=== PATIENT | female | born 1945 | race Caucasian/White ===

== ENCOUNTER → 2023-08-11 | Emergency (ER) | payer OTHER ==
[2023-08-11 11:53] LABS: Absolute Eosinophils 0.3 K/uL (0-0.5); Absolute Lymphocytes (CBC) 1.3 K/uL (0.7-4.9); Basophils % 0.2 % (0-1.3); Eosinophils % 5.6 % (0-4.4); Hematocrit 43.5 % (36.0-45.0); Hemoglobin 14.8 g/dL (12.0-15.0); Lymphocytes % 23.7 % (15.3-44.8); MCV 88.1 fL (80-100); Platelets 349 thou/uL (152-406); RBC Red Blood Cell Count 4.93 M/uL (3.86-4.86)
[2023-08-11 12:14] LABS: Albumin 3.8 g/dL (3.4-5.0); Albumin/Globulin Ratio 0.9 (1.1-1.8); Bilirubin Direct 0.1 mg/dL (0-0.2); Bilirubin Indirect, Calculated 0.3 mg/dL (0.2-0.8); Bilirubin Total 0.4 mg/dL (0.2-1.0); Globulin 4.2 g/dL (2.3-3.5); Magnesium 2.1 mg/dL (1.6-2.4); Thyroid Stimulating Hormone 2.18 uIU/mL (0.358-3.740); Troponin High Sensitivity 8.4 pg/mL (<58.9)
--- NOTE | 2023-08-11 12:24 | RAD REPORT ---
EXAM DESCRIPTION: Rafat Single View08/11/2023 12:11 pm CLINICAL HISTORY: Bradycardia COMPARISON: 2012 FINDINGS: Mild interstitial opacities within the upper lobes. Lateral left lung base is hazy Heart mildly enlarged IMPRESSION: Mild bilateral pulmonary opacities may represent pneumonia or be chronic. A CT chest may helpful for further evaluation
--- NOTE | 2023-08-11 13:00 | ER ---
Nurse's Notes [facility] Name: Gabby López Age: 78 yrs Sex: Female : 1945 Arrival Date: 08/11/2023 Time: 10:42 Bed 5 Private MD: Zaria Kate Diagnosis: Sinus bradycardia Presentation: 08/10 10:55 Chief complaint: Patient states: was seen at Dr. Kate office and her HR was 42 , she iw had a hard time getting in the car but denies feeling dizzy or light headed. Coronavirus screen: At this time, the client does not indicate any symptoms associated with coronavirus-19. Ebola Screen: Patient negative for fever greater than or equal to 101.5 degrees Fahrenheit, and additional compatible Ebola Virus Disease symptoms Patient denies exposure to infectious person. Patient denies travel to an Ebola-affected area in the 21 days before illness onset. No symptoms or risks identified at this time. Initial Sepsis Screen: Does the patient meet any 2 criteria? No. Patient's initial sepsis screen is negative. Does the patient have a suspected source of infection? No. Patient's initial sepsis screen is negative. Risk Assessment: Do you want to hurt yourself or someone else? Patient reports no desire to harm self or others. Onset of symptoms was August 11, 2023. 10:55 Method Of Arrival: Wheelchair iw 10:55 Acuity: BHAVIN 3 iw Historical: - Allergies: 10:58 No Known Allergies; iw - PMHx: 10:58 Diabetes mellitus; Hypercholesterolemia; COPD; Myocardial infarction; Hypertensive iw disorder; scoliosis; Anxiety; - PSHx: 10:58 hysterectomy; Tonsillectomy; neck; iw - Immunization history:: Adult Immunizations Pneumococcal vaccine is up to date, Flu vaccine is not up to date. - Social history:: Smoking status: Patient/guardian denies using tobacco, Stopped _ months ago 3. - Family history:: not pertinent. Screenin:55 [facility] ED Fall Risk Assessment (Adult) Score/Fall Risk Level 0 - 2 = Low Risk nj1 Oriented to surroundings, Maintained a safe environment, Hourly rounding (assess needs \T\ fall precautionary measures) done. Abuse screen: Denies threats or abuse. Denies injuries from another. Nutritional screening: No deficits noted. Tuberculosis screening: No symptoms or risk factors identified. Assessment: 11:30 General: Appears in no apparent distress. comfortable, Behavior is calm, cooperative, nj1 appropriate for age. 11:30 Pain: Denies pain. Neuro: Level of Consciousness is awake, alert, obeys commands, nj1 Oriented to person, place, time, situation. Cardiovascular: Patient's skin is warm and dry. Rhythm is sinus bradycardia. Respiratory: Airway is patent Respiratory effort is even, unlabored. 12:20 Reassessment: Patient appears in no apparent distress at this time. Patient and/or db family updated on plan of care and expected duration. Pain level reassessed. Patient is alert, oriented x 3, equal unlabored respirations, skin warm/dry/pink. PT ASSISTED TO RESTROOM VIA WHEELCHAIR. PT ATTEMPTED TO AMBULATE TO RESTROOM AND STOOD UP QUICKLY AND STATED FELT DIZZY. NOTIFIED DR. SALINAS. 12:58 Reassessment: Patient appears in no apparent distress at this time. Patient is alert, nj1 oriented x 3, equal unlabored respirations, skin warm/dry/pink. Pt walking on hallway with Dr Salinas. No s/s of distress noted. Vital Signs: 10:55 BP 175 / 44; Pulse 43; Resp 16; Temp 97.9; Pulse Ox 98% on R/A; Weight 58.97 kg; Height iw 5 ft. 0 in. ; 11:54 BP 174 / 61; Pulse 48; Resp 18; Pulse Ox 98% on R/A; nj1 12:50 BP 168 / 50; Pulse 49; Resp 12; Pulse Ox 96% on R/A; nj1 10:55 Body Mass Index 25.39 (58.97 kg, 152.4 cm) iw ED Course: 10:46 Patient arrived in ED. mr 10:47 Zaria Kate DO is Private Physician. mr 10:49 Noman Salinas MD is Attending Physician. rt 10:56 Triage completed. iw 11:00 Arm band placed on. iw 11:27 Chandrika Santo, RONEY is Primary Nurse. nj1 11:35 Inserted saline lock: 22 gauge in right antecubital area, using aseptic technique. nj1 Blood collected. 11:55 Patient has correct armband on for positive identification. Placed in gown. Bed in low nj1 position. Call light in reach. Side rails up X 1. Adult w/ patient. Provided Education on: call light, fall precautions. 13:05 No provider procedures requiring assistance completed. nj1 13:05 IV discontinued, intact, bleeding controlled. nj1 Administered Medications: No medications were administered Medication: 13:05 VIS not applicable for this client. nj1 Outcome: 12:59 Discharge ordered by MD. rt 13:05 Discharged to home ambulatory, with family, nj1 13:05 Condition: stable 13:05 Discharge instructions given to patient, Instructed on discharge instructions, follow up and referral plans. safety practices, Demonstrated understanding of instructions, follow-up care, 13:08 Patient left the ED. nj1 Signatures: Damari Marte, Reg Reg mr Annabelle Rg, RN RN iw Azeb Grant RN RN db Noman Salinas MD MD rt Chandrika Santo RN RN nj1 Corrections: (The following items were deleted from the chart) 12:47 12:20 Reassessment: Patient appears in no apparent distress at this time. Patient db and/or family updated on plan of care and expected duration. Pain level reassessed. Patient is alert, oriented x 3, equal unlabored respirations, skin warm/dry/pink. PT ASSISTED TO RESTROOM VIA WHEELCHAIR. db 13:16 13:15 Patient left the ED. nj1 nj1
--- NOTE | 2023-08-11 13:00 | EDPHYS ---
Physician Documentation [facility] Name: Gabby López Age: 78 yrs Sex: Female : 1945 Arrival Date: 08/11/2023 Time: 10:42 Bed 5 Private MD: Zaria Kate ED Physician Noman Valiente HPI: 08/10 13:21 This 78 yrs old Female presents to ER via Wheelchair with complaints of Low Heart rate. rt 13:21 Patient presents to the ED with bradycardia. Patient went to her primary care's office rt today for a checkup, heart rate was noted to be about 40 to. Patient denies any symptoms at this time, denies chest pain, shortness of breath, dizziness. Denies other acute complaints, symptoms are moderate severity, no other aggravating or elevating factors.. Historical: - Allergies: 10:58 No Known Allergies; iw - PMHx: 10:58 Diabetes mellitus; Hypercholesterolemia; COPD; Myocardial infarction; Hypertensive iw disorder; scoliosis; Anxiety; - PSHx: 10:58 hysterectomy; Tonsillectomy; neck; iw - Immunization history:: Adult Immunizations Pneumococcal vaccine is up to date, Flu vaccine is not up to date. - Social history:: Smoking status: Patient/guardian denies using tobacco, Stopped _ months ago 3. - Family history:: not pertinent. ROS: 13:21 Constitutional: Negative for fever, chills, and weight loss, Cardiovascular: Negative rt for chest pain, palpitations, and edema, Respiratory: Negative for shortness of breath, cough, wheezing, and pleuritic chest pain, Abdomen/GI: Negative for abdominal pain, nausea, vomiting, diarrhea, and constipation, MS/Extremity: Negative for injury and deformity, Skin: Negative for injury, rash, and discoloration, Neuro: Negative for headache, weakness, numbness, tingling, and seizure, Psych: Negative for depression, anxiety, suicide ideation, homicidal ideation, and hallucinations, Exam: 13:16 ECG was reviewed by the Attending Physician. rt 13:21 Constitutional: This is a well developed, well nourished patient who is awake, alert, rt and in no acute distress. Head/Face: Normocephalic, atraumatic. Chest/axilla: Normal chest wall appearance and motion. Nontender with no deformity. No lesions are appreciated. Cardiovascular: Regular rate and rhythm with a normal S1 and S2. No gallops, murmurs, or rubs. Normal PMI, no JVD. No pulse deficits. Respiratory: Lungs have equal breath sounds bilaterally, clear to auscultation and percussion. No rales, rhonchi or wheezes noted. No increased work of breathing, no retractions or nasal flaring. Abdomen/GI: Soft, non-tender, with normal bowel sounds. No distension or tympany. No guarding or rebound. No evidence of tenderness throughout. Skin: Warm, dry with normal turgor. Normal color with no rashes, no lesions, and no evidence of cellulitis. MS/ Extremity: Pulses equal, no cyanosis. Neurovascular intact. Full, normal range of motion. Neuro: Awake and alert, GCS 15, oriented to person, place, time, and situation. Cranial nerves II-XII grossly intact. Motor strength 5/5 in all extremities. Sensory grossly intact. Cerebellar exam normal. Normal gait. Vital Signs: 10:55 BP 175 / 44; Pulse 43; Resp 16; Temp 97.9; Pulse Ox 98% on R/A; Weight 58.97 kg; Height iw 5 ft. 0 in. ; 11:54 BP 174 / 61; Pulse 48; Resp 18; Pulse Ox 98% on R/A; nj1 12:50 BP 168 / 50; Pulse 49; Resp 12; Pulse Ox 96% on R/A; nj1 10:55 Body Mass Index 25.39 (58.97 kg, 152.4 cm) iw MDM: 11:02 Patient medically screened. rt 13:21 Differential Diagnosis Sinus bradycardia, heart block, medication side effect. Data rt reviewed: vital signs, nurses notes, lab test result(s), EKG, radiologic studies. Consideration of Admission/Observation Escalation of care including admission/observation considered. Patient is symptom-free, otherwise stable vital signs, heart rate is improving to the 50s. Is able to ambulate that difficulty. She is strongly desirous of discharge. Patient also states that in about 1 week she does have an appointment with a sand cutter. Patient is appropriate for discharge at this time, strict return precautions were discussed.. Independent interpretation of the following test(s) in the Emergency Department X-Ray: My interpretation is No pneumothorax, interpretation of x-ray images. Care significantly affected by the following chronic conditions: Diabetes. Counseling: I had a detailed discussion with the patient and/or guardian regarding the historical points, exam findings, and any diagnostic results supporting the discharge/admit diagnosis, lab results, radiology results, the need for outpatient follow up, Discussed x-ray findings with the patient, this is a known chronic issue and she is currently being worked up for the x-ray changes. She denies any cough, shortness of breath, other signs or symptoms concerning for pneumonia.. 08/10 11:54 Order name: CBC with Automated Diff; Complete Time: 11:57 EDMS 08/10 12:14 Order name: Basic Metabolic Panel; Complete Time: 12:30 EDMS 08/10 12:14 Order name: Liver (Hepatic) Function; Complete Time: 12:30 EDMS 08/10 12:14 Order name: Troponin High Sensitivity; Complete Time: 12:30 EDMS 08/10 12:14 Order name: Magnesium; Complete Time: 12:30 EDMS 08/10 12:14 Order name: Thyroid Stimulating Hormone; Complete Time: 12:30 EDMS 08/10 11:10 Order name: XRAY Chest (1 view) rt 08/10 12:24 Order name: RAD; Complete Time: 12:30 EDMS 08/10 11:10 Order name: EKG; Complete Time: 17:08 rt 08/10 11:10 Order name: Cardiac monitoring; Complete Time: 11:46 rt 08/10 11:10 Order name: EKG - Nurse/Tech; Complete Time: 11:46 rt 08/10 11:10 Order name: IV Saline Lock; Complete Time: 11:45 rt 08/10 11:10 Order name: Labs collected and sent; Complete Time: 11:46 rt 08/10 11:10 Order name: O2 Per Protocol; Complete Time: 11:46 rt 08/10 11:10 Order name: O2 Sat Monitoring; Complete Time: 11:46 rt EC:16 Rate is 46 beats/min. Rhythm is regular, Sinus bradycardia with No ectopy. QRS [place] is rt Normal. MA interval is normal. QRS interval is normal. QT interval is normal. No Q waves. No ST changes noted. Interpreted by me. Administered Medications: No medications were administered Disposition Summary: 08/11/23 12:59 Discharge Ordered Notes: Location: Home rt Problem: new rt Symptoms: have improved rt Condition: Stable rt Diagnosis - Sinus bradycardia rt Followup: rt - With: Private Physician - When: 5 - 6 days - Reason: Discharge Instructions: - Discharge Summary Sheet rt - Bradycardia, Adult rt Forms: - Medication Reconciliation Form rt - Thank You Letter rt - Antibiotic Education rt - Prescription Opioid Use rt - Patient Portal Instructions rt - Leadership Thank You Letter rt Signatures: Dispatcher [employer] Annabelle Bhatia RN RN Noman Posada MD MD rt
[2023-08-11 13:54] VITALS: BP 168/50; TEMP 97.9; O2SAT 96
== END ==
LOC: ER 10:42
DX: R00.1 Bradycardia, unspecified (principal); I10 Essential (primary) hypertension; I25.2 Old myocardial infarction; E11.9 Type 2 diabetes mellitus without complications
CPT/HCPCS: 36415; 71045; 80048; 80076; 83735; 84443; 84484; 85025

== ENCOUNTER 2024-02-10 15:47 | Observation (INO) | payer OTHER ==
[2024-02-10 17:28] LABS: Absolute Basophils 0.1 K/uL (0-0.5); Absolute Eosinophils 0.2 K/uL (0-0.5); Absolute Monocytes 0.6 K/uL (0.1-1.3); Absolute Neutrophil 3.1 K/uL (1.8-8.0); Basophils % 1.3 % (0-1.3); Eosinophils % 3.2 % (0-4.4); Hematocrit 34.7 % (36.0-45.0); Hemoglobin 11.7 g/dL (12.0-15.0); Lymphocytes % 19.7 % (15.3-44.8); MCH 27.1 pg (27.0-35.0); MCHC 33.8 g/dL (32.0-36.0); MCV 80.2 fL (80-100); MPV 6.7 fL (7.6-11.3); Monocytes % 12.2 % (3.3-12.3); Neutrophils % 63.6 % (41.7-73.7); Platelets 372 thou/uL (152-406); RBC Red Blood Cell Count 4.33 M/uL (3.86-4.86)
[2024-02-10 17:42] LABS: Anion Gap 11.2 mEq/L (5.0-15.0); Potassium 4.2 mEq/L (3.5-5.1)
--- NOTE | 2024-02-10 18:31 | EDPHYS ---
Physician Documentation [facility] Name: Gabby López Age: 78 yrs Sex: Female : 1945 Arrival Date: 02/10/2024 Time: 15:47 Bed 4 Private MD: Sahil Elam HPI: 02/09 17:45 This 78 yrs old Female presents to ER via Wheelchair with complaints of Abnormal Lab sd2 Results. 17:45 78 yo F presents with CC of abnormal lab results. Reports called by her doctor for labs sd2 drawn today by home healthcare that showed an abnormality of her sodium level. She cannot recall the number or if it was high or low. She reports no new symptoms and that she feels at her normal baseline otherwise.. Historical: - Allergies: 16:16 No Known Allergies; iw - PMHx: 16:16 COPD; Anxiety; diabetes mellitus; Hypercholesterolemia; Hypertensive disorder; iw Myocardial infarction; scoliosis; - PSHx: 16:16 hysterectomy; neck; Tonsillectomy; iw - Immunization history:: Adult Immunizations up to date. - Infectious Disease History:: Denies. - Social history:: Smoking status: Patient denies any tobacco usage or history of. ROS: 17:45 Constitutional: Negative for fever, chills, and weight loss, Eyes: Negative for injury, sd2 pain, redness, and discharge, Cardiovascular: Negative for chest pain, palpitations, and edema, Respiratory: Negative for shortness of breath, cough, wheezing. Abdomen/GI: Negative for abdominal pain, nausea, vomiting, diarrhea. MS/Extremity: Negative for injury and deformity, Skin: Negative for injury, rash, and discoloration, Neuro: Negative for headache, numbness and tingling. Exam: 17:45 Constitutional: This is a well developed, well nourished patient who is awake, alert, sd2 and in no acute distress. Head/Face: Normocephalic, atraumatic. Eyes: EOMI, normal conjunctiva bilaterally Chest/axilla: Normal chest wall appearance and motion. Nontender with no deformity. Cardiovascular: Regular rate and rhythm with a normal S1 and S2. No gallops, murmurs, or rubs. 2+ distal pulses. Respiratory: Lungs have equal breath sounds bilaterally, clear to auscultation and percussion. No rales, rhonchi or wheezes noted. No increased work of breathing, no retractions or nasal flaring. Abdomen/GI: Soft, non-tender, with normal bowel sounds. No guarding or rebound. No evidence of tenderness throughout. Skin: Warm, dry with normal turgor. Normal color with no rashes, no lesions, and no evidence of cellulitis. MS/ Extremity: Pulses equal, no cyanosis. Neurovascular intact. Full, normal range of motion. Psych: Awake, alert, with orientation to person, place and time. Behavior, mood, and affect are within normal limits. Vital Signs: 16:16 BP 160 / 49; Pulse 67; Resp 14; Temp 97.6; Pulse Ox 100% on R/A; iw 19:08 BP 176 / 62; Pulse 69; Resp 16; Pulse Ox 98% ; bp MDM: 17:19 Patient medically screened. sd2 17:45 Differential Diagnosis hyponatremia, hypernatremia, lab error, dehydration, fluid sd2 overload, electrolyte abnormality among others. Data reviewed: vital signs, nurses notes. Care significantly affected by the following chronic conditions: Diabetes, Hypertension, Chronic Obstructive Pulmonary Disease. 17:59 Transition of care: After a detail discussion of the patient's case, care is sd2 transferred to Sahil López MD. 02/09 16:33 Order name: CBC with Diff; Complete Time: 18:01 02/09 16:33 Order name: BMP; Complete Time: 18:01 02/09 18:01 Order name: Urinalysis w/ reflexes 02/09 18:01 Order name: Urine Sodium Random 02/09 18:01 Order name: Urine Osmolality 02/09 18:01 Order name: BNP 02/09 18:26 Order name: Troponin High Sensitivity [facility] 02/09 18:26 Order name: Osmolality, Serum toni 02/09 18:26 Order name: EKG - Nurse/Tech; Complete Time: 19:08 toni Administered Medications: 19:07 Drug: NS 0.9% IV 1000 ml IV at 75 ml/hr continuous Route: IV; Rate: 75 ml/hr; Site: bp right antecubital; 20:20 Follow up: Response: No adverse reaction; IV Status: Infusion continued upon admission; ha1 IV Intake: 300ml Disposition Summary: 02/10/24 18:31 Hospitalization Ordered Notes: Hospitalization Status: Inpatient Admission toni Provider: Prince toni Bean Location: Telemetry/MedSurg (Inpatient) toni Condition: Fair otni Problem: new toni Symptoms: have improved toni Bed/Room Type: Standard toni Room Assignment: 419(02/10/24 18:56) bd Diagnosis - Hypo-osmolality and hyponatremia toni - Edema, unspecified toni - Weakness toni Forms: - Medication Reconciliation Form toni - SBAR form toni - Leadership Thank You Letter toni Signatures: Dispatcher [employer] EDMS Veda Vasquez Corey, MD MD cha Williams, Irene, RN RN iw Carlos De Santiago RN RN Jaymie Bradley MD MD sd2 Harika Carpenter RN ha1 Corrections: (The following items were deleted from the chart) 16:16 16:16 Allergies: Aspirin; [facility] 16:34 16:34 CBC+H.LAB.BRZ ordered. EDMS EDMS 16:34 16:34 BASIC METABOLIC PANEL+C.LAB.BRZ ordered. EDMS EDMS 18:27 18:26 Troponin High Sensitivity+C.LAB.BRZ ordered. EDMS EDMS 18:27 18:26 OSMOLALITY, SERUM+SC.LAB.BRZ ordered. EDMS EDMS 18:56 18:31 toni bd
--- NOTE | 2024-02-10 18:31 | ER ---
Nurse's Notes [facility] Name: Gabby López Age: 78 yrs Sex: Female : 1945 Arrival Date: 02/10/2024 Time: 15:47 Bed 4 Private MD: Diagnosis: Hypo-osmolality and hyponatremia;Edema, unspecified;Weakness Presentation: 02/09 16:15 Chief complaint: had labs drawn today and was told to come to ER for an abnormal sodium iw level. Coronavirus screen: At this time, the client does not indicate any symptoms associated with coronavirus-19. Ebola Screen: No symptoms or risks identified at this time. Initial Sepsis Screen: Does the patient meet any 2 criteria? No. Patient's initial sepsis screen is negative. Does the patient have a suspected source of infection? No. Patient's initial sepsis screen is negative. Risk Assessment: Do you want to hurt yourself or someone else? Patient reports no desire to harm self or others. Onset of symptoms was February 10, 2024. 16:15 Method Of Arrival: Wheelchair iw 16:15 Acuity: BHAVIN 3 iw Triage Assessment: 18:15 General: Appears in no apparent distress. Behavior is calm, cooperative, appropriate bp for age. Pain: Denies pain. EENT: No deficits noted. Neuro: No deficits noted. Cardiovascular: Rhythm is sinus rhythm. Respiratory: No deficits noted. GI: No signs and/or symptoms were reported involving the gastrointestinal system. : No signs and/or symptoms were reported regarding the genitourinary system. Derm: No deficits noted. Musculoskeletal: Swelling present in right foot and left foot. Historical: - Allergies: 16:16 No Known Allergies; iw - PMHx: 16:16 COPD; Anxiety; diabetes mellitus; Hypercholesterolemia; Hypertensive disorder; iw Myocardial infarction; scoliosis; - PSHx: 16:16 hysterectomy; neck; Tonsillectomy; iw - Immunization history:: Adult Immunizations up to date. - Infectious Disease History:: Denies. - Social history:: Smoking status: Patient denies any tobacco usage or history of. Screenin:45 [facility] ED Fall Risk Assessment (Adult) History of falling in the last 3 months, bp including since admission No falls in past 3 months (0 pts) Confusion or Disorientation No (0 pts) Intoxicated or Sedated No (0 pts) Impaired Gait No (0 pts) Mobility Assist Device Used No (0 pt) Altered Elimination No (0 pt) Score/Fall Risk Level 0 - 2 = Low Risk. Abuse screen: Denies threats or abuse. Denies injuries from another. Nutritional screening: No deficits noted. Tuberculosis screening: No symptoms or risk factors identified. Assessment: 18:45 General: HOSPITALIST AT B/S. bp Vital Signs: 16:16 BP 160 / 49; Pulse 67; Resp 14; Temp 97.6; Pulse Ox 100% on R/A; iw 19:08 BP 176 / 62; Pulse 69; Resp 16; Pulse Ox 98% ; bp ED Course: 15:49 Patient arrived in ED. mr 15:55 Jaymie Hendricks MD is Attending Physician. sd2 16:16 Triage completed. iw 18:09 Attending Physician role handed off by Jaymie Hendricks MD toni 18:09 Sahil López MD is Attending Physician. toni 18:15 Arm band placed on Patient placed in an exam room, on a stretcher. ll1 18:30 Prince Bean MD is Hospitalizing Provider. toni 18:45 Patient has correct armband on for positive identification. bp 18:48 Carlos De Santiago, RONEY is Primary Nurse. bp 19:00 No provider procedures requiring assistance completed. Inserted saline lock: 20 gauge ha1 in right antecubital area, using aseptic technique. Blood collected. Flushed with 10 mL NS. 20:00 Provided Education on: need for admit. ha1 20:14 Patient admitted, IV remains in place. ha1 Administered Medications: 19:07 Drug: NS 0.9% IV 1000 ml IV at 75 ml/hr continuous Route: IV; Rate: 75 ml/hr; Site: bp right antecubital; 20:20 Follow up: Response: No adverse reaction; IV Status: Infusion continued upon admission; ha1 IV Intake: 300ml Medication: 18:45 VIS not applicable for this client. bp Intake: 20:20 IV: 300ml; Total: 300ml. ha1 Outcome: 18:31 Decision to Hospitalize by Provider. toni 19:57 Patient left the ED. lg3 20:00 Admitted to Tele accompanied by nurse, via wheelchair, room 419, with chart, ha1 20:00 Condition: stable 20:00 Instructed on the need for admit, Demonstrated understanding of instructions, Signatures: Sahil López MD MD cha Rivera, Damari, Reg Reg mr Annabelle Rg, RN RN iw Carlos De Santiago, RN Lorie Wallace RN RN lg3 Neris Bajwa RN RN ll1 Jaymie Hendricks MD MD sd2 Harika Carpenter RN RN ha1 Corrections: (The following items were deleted from the chart) 16:16 16:16 Allergies: Aspirin; [facility]
[2024-02-10] MEDS ORDERED: NA CHLORIDE 0.9% 1,000 ML ONE (18:55)
--- NOTE | 2024-02-10 19:06 | P.HP ---
Certification for Inpatient Patient admitted to: Inpatient With expected LOS: >2 Midnights Practitioner: I am a practitioner with admitting privileges, knowledge of patient current condition, hospital course, and medical plan of care. Services: Services provided to patient in accordance with Admission requirements found in Title 42 Section 412.3 of the Code of Federal Regulations Patient History Date of Service: 02/10/24 Reason for admission: Low-sodium History of Present Illness: Patient is a 78-year-old female with a past medical history of hypertension, hyperlipidemia, diabetes mellitus on scheduled insulin. She presented to the ER after an abnormal outpatient lab. She was notified by her PCP regarding a sodium of 124. Patient has been on HCTZ which has been recently started by her distribution manager. During my evaluation, patient was in no acute distress. Her medications were reviewed and include sertraline, duloxetine and HCTZ. Allergies No Known Allergies Allergy (Unverified 09/15/12 15:18) Physical Examination - Physical Exam General: Alert, In no apparent distress HEENT: Atraumatic, Normocephalic Respiratory: Clear to auscultation bilaterally, Normal air movement Cardiovascular: Edema (1+ pitting edema bilateral) Neurological: Normal speech - Studies Laboratory Data (last 24 hrs) 02/10/24 02/10/24 17:20 17:20 WBC 4.90 Hgb 11.7 L Hct 34.7 L Plt Count 372 Sodium 124 L Potassium 4.2 BUN 14 Creatinine 0.69 Glucose 138 H Assessment and Plan - Problems (Diagnosis) (1) Hyponatremia Current Visit: Yes Status: Acute (2) Type II diabetes mellitus Current Visit: Yes Status: Acute - Plan Assessment This is a 78-year-old female who presented to the ER for evaluation of hyponatremia. Her sodium was 124. Patient is taking multiple drugs including sertraline, duloxetine and hydrochlorothiazide. She is not very symptomatic during my evaluation. Hyponatremiamost likely drug-induced Type 2 diabetes mellitus-very brittle Hypertension Hyperlipidemia Plan: Will admit inpatient with telemetry Fluid restriction Every 4 BMP Urine osm, serum osm and urine sodium sent Discontinue HCTZ Hold SSRIs above Nephrology consulted Resume rest of home medications Patient would like to be full code - Advance Directives Does patient have a Living Will: No Does patient have a Durable POA for Healthcare: No
[2024-02-10] MEDS ORDERED: HYDRALAZINE HCL 20 MG/ML VIAL IV PRN (22:21)
[2024-02-10] MEDS: HYDRALAZINE HCL 25 MG TABLET PO ONE (22:46)
[2024-02-10] MEDS: PRIMIDONE 50 MG TAB PO ONE (22:46)
[2024-02-10] MEDS: AMLODIPINE 10 MG TAB PO ONE (22:46)
[2024-02-10] MEDS: GABAPENTIN 300 MG CAP PO ONE (22:47)
[2024-02-10] MEDS: clonazePAM 1 MG TAB PO ONE (22:47)
[2024-02-10 23:04] LABS: Specific Gravity < 1.005 (1.005-1.030); Urine Bilirubin NEGATIVE (Negative); Urine Blood Negative (Negative); Urine Clarity Clear (Clear); Urine Color Colorless (Yellow); Urine Glucose NEGATIVE (Negative); Urine Ketones NEGATIVE (Negative); Urine Microscopic Reflex YN NO UMIC; Urine Nitrite NEGATIVE (Negative); Urine Protein NEGATIVE (Negative); Urine Urobilinogen Normal (Normal)
[2024-02-11 03:15] VITALS: BMI 22.5
--- NOTE | 2024-02-11 07:18 | P.PN ---
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 Feels like her normal self. Rest of lab work okay. 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 suspect drug induced. on multiple medications which could be contributing to HypoNa Hold HCTZ, SSRIs for now Monitor on telemetry Daily labs nephrology consulted IDD2 accu-cheks, SSI confirm home dose regimen Hypertension Hyperlipidemia confirm home meds, restart as appropriate VTE: Code: Full Dispo: Home, ~1-2 days Pending nephrology recs, sodium improves Time Spent Managing Pts Care (In Minutes): 41
[2024-02-11] MEDS: INSULIN LISPRO 100 UNIT/1 ML SQ SCH ×2 (08:00→13:42)
[2024-02-11 08:17] LABS: Anion Gap 6.4 mEq/L (5.0-15.0); Potassium 4.4 mEq/L (3.5-5.1); Troponin High Sensitivity 18.4 pg/mL (<58.9)
[2024-02-11] MEDS: CELECOXIB 100 MG CAPSULE PO SCH (08:27)
[2024-02-11] MEDS: VALSARTAN 160 MG TAB PO SCH (08:27)
[2024-02-11] MEDS: SERTRALINE HCL 100 MG TAB PO SCH (08:27)
[2024-02-11] MEDS: PRIMIDONE 50 MG TAB PO SCH (08:27)
[2024-02-11] MEDS: clonazePAM 1 MG TAB PO SCH (08:27)
[2024-02-11] MEDS: GABAPENTIN 300 MG CAP PO SCH (08:27)
[2024-02-11] MEDS: TRAMADOL HCL 50 MG TAB PO SCH (08:28)
[2024-02-11] MEDS: CLOPIDOGREL 75 MG TABLET PO SCH (08:28)
[2024-02-11] MEDS: PANTOPRAZOLE 40MG TABLET PO SCH (08:28)
[2024-02-11] MEDS: SPIRONOLACTONE 25 MG TABLET PO SCH (08:28)
[2024-02-11] MEDS: AMLODIPINE 10 MG TAB PO SCH (08:29)
[2024-02-11] MEDS: INSULIN GLARGINE 100 UNIT/ML SQ SCH (08:29)
[2024-02-11] MEDS: HYDRALAZINE HCL 25 MG TABLET PO SCH (08:29)
[2024-02-11] MEDS: [UNRECOGNIZED DRUG - OTHER] OPTH SCH (08:30)
[2024-02-11] MEDS: Cyclosporine [Restasis] Droperette OPTH SCH (08:30)
[2024-02-11] MEDS: BRIMONIDINE TIMOLOL OPTH SCH (08:30)
[2024-02-11] MEDS: TIOTROPIUM 5 SPRAYS/INHALER IH SCH (10:59)
[2024-02-11 13:09] VITALS: BP 140/60; TEMP 97.1
--- NOTE | 2024-02-11 13:32 | P.DS ---
Admission Date: 02/10/24 Discharge Date: 02/11/24 Disposition: DC HOME/HOME HEALTH CARE Reason for Admission: Low-sodium Consultations: Nephrology - Dr. Sun Brief History of Present Illness: Patient is a 78-year-old female with a past medical history of hypertension, hyperlipidemia, diabetes mellitus on scheduled insulin. She presented to the ER after an abnormal outpatient lab. She was notified by her PCP regarding a sodium of 124. Patient has been on HCTZ which has been recently started by her eligibility worker. During my evaluation, patient was in no acute distress. Her medications were reviewed and include sertraline, duloxetine and HCTZ. 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 Sodium on admission here was 124. Rest of labwork was unremarkable. Patient asymptomatic, reports feeling like her normal baseline self. She reports recently being started on hydrochlorothiazide (HCTZ) per her eligibility worker. On further review of her home medications, she is on multiple medications which could be contributing to her hyponatremia (sertraline, duloxetine, HCTZ), but most recently and likely would be the HCTZ. Nephrology was consulted and recommended stopping the HCTZ, stable for discharge, and follow up in office in ~2 weeks with repeat bloodwork Patient reported still feeling at her baseline, was monitored overnight, labs improved, and was deemed stable for discharge. Sodium on discharge: 127 Mediations: stop hydrochlorothiazide (HCTZ) resume other home meds as previously prescribed Follow up: PCP 3-5 days Nephrology - Dr. Sun Please call to schedule / confirm appointments Physical Exam: GEN: Alert, oriented, NAD HEENT: Normal conjunctiva, sclera anicteric CV: Regular rate and rhythm, no edema Pulm: Nonlabored respirations on room air, clear bilaterally ABD: Soft, nontender, nondistended Integumentary: No rashes Neuro: Normal speech, normal affect Vital Signs/Physical Exam: Temp Pulse Resp BP Pulse Ox 97.1 F 80 16 140/60 94 02/11/24 12:00 02/11/24 12:00 02/11/24 12:00 02/11/24 12:00 02/11/24 12:00 Laboratory Data at Discharge: WBC 4.90 thou/uL (4.3-10.9) 02/10/24 17:20 Hgb 11.7 g/dL (12.0-15.0) L 02/10/24 17:20 Hct 34.7 % (36.0-45.0) L 02/10/24 17:20 Plt Count 372 thou/uL (152-406) 02/10/24 17:20 Sodium 127 mEq/L (136-145) L 02/11/24 07:37 Potassium 4.4 mEq/L (3.5-5.1) 02/11/24 07:37 BUN 14 mg/dL (7-18) 02/11/24 07:37 Creatinine 0.67 mg/dL (0.55-1.02) 02/11/24 07:37 Glucose 72 mg/dL (74-106) L 02/11/24 07:37 Home Medications: Amlodipine Bes/Olmesartan Med [Amlodipine-Olmesartan 10-40 mg] 1 each PO DAILY 02/10/24 Brimonidine Tartrate/Timolol [Brimonidine-Timolol 0.2%-0.5%] 1 drop OP BID 02/10/24 Carboxymethyl/Gly/Poly80/Pf [Refresh Optive Advanced Drops] 1 each OP TID 02/10/24 Celecoxib 200 mg PO BIDWM 02/10/24 Clopidogrel Bisulfate [Plavix*] 75 mg PO DAILY 02/10/24 Gabapentin [Neurontin] 600 mg PO TID 02/10/24 Hydralazine HCl 100 mg PO TID 02/10/24 Insulin Glargine,Hum.rec.anlog [Lantus] 10 unit SQ BID 02/10/24 Insulin Lispro [Humalog] 5 unit SQ TIDWM 02/10/24 Latanoprost Ophth [Xalatan 0.005%*] 1 drop EACH EYE BEDTIME 02/10/24 Pantoprazole [Protonix Tab*] 40 mg PO DAILY 02/10/24 Primidone 50 mg PO BID 02/10/24 Sertraline [Zoloft*] 100 mg PO DAILY 02/10/24 Spironolactone [Aldactone*] 25 mg PO DAILY 02/10/24 Tiotropium [place] [Spiriva] 2 spray IH DAILY 02/10/24 Tramadol HCl [Ultram] 50 mg PO DAILY 02/10/24 clonazePAM [Clonazepam] 1 mg PO BID 02/10/24 cycloSPORINE [Restasis] 1 drop EACH EYE DAILY 02/10/24 Physician Discharge Instructions: Physician discharge instructions: Patient came to ER per PCP recommendation following abnormal outpatient labwork - sodium 124. Sodium on admission here was 124. Rest of labwork was unremarkable. Patient asymptomatic, reports feeling like her normal baseline self. She reports recently being started on hydrochlorothiazide (HCTZ) per her eligibility worker. On further review of her home medications, she is on multiple medications which could be contributing to her hyponatremia (sertraline, duloxetine, HCTZ), but most recently and likely would be the HCTZ. Nephrology was consulted and recommended stopping the HCTZ, stable for discharge, and follow up in office in ~2 weeks with repeat bloodwork Patient reported still feeling at her baseline, was monitored overnight, labs improved, and was deemed stable for discharge. Sodium on discharge: 127 Mediations: stop hydrochlorothiazide (HCTZ) resume other home meds as previously prescribed Follow up: PCP 3-5 days Nephrology - Dr. Sun Please call to schedule / confirm appointments Followup: Selvin Sun MD [ACTIVE - CAN ADMIT] - 1-2 Weeks Zaria Kate DO [Primary Care Provider] - 1-2 Weeks Time spent managing pt's care (in minutes): 45
[2024-02-11 14:10] VITALS: O2SAT 94
--- NOTE | 2024-02-11 16:22 | EKG ---
Test Date: 2024-02-10 Test Time: 19:05:17 Sock Examiner: BP MEASUREMENT RESULTS: Intervals: Rate: 68 OH: 182 QRSD: 122 QT: 450 QTc: 478 [place]: P: 80 OH: 182 QRS: 92 T: 93 INTERPRETIVE STATEMENTS: Normal sinus rhythm Septal infarct, age undetermined Abnormal ECG Compared to ECG 08/11/2023 10:49:43 Sinus bradycardia no longer present Myocardial infarct finding still present Electronically Signed On 02-11-24 16:20:35 CDT by Jose Enrique Green
--- NOTE | 2024-02-11 16:36 | CON ---
Date of Consultation: 02/11/2024 Reason Of Consultation: Hyponatremia. History Of Present Illness: This is a pleasant 78-year-old female with significant past medical hist ory of hypertension, hyperlipidemia, diabetes complicated with neuropathy, no retinopathy. The patie nt was referred from her PCP as her sodium was down to 124. According to the patient, the patient wa s started on hydrochlorothiazide by her shoe fitter, few month back. The patient was dizzy and unst able gait. Over the night, hydrochlorothiazide was discontinued. Patient was started on IV hydratio n. Sodium trended up currently 127 from 124 over 12 hours. Past Medical History: Includes: 1.Hypertension. 2.Hyperlipidemia. Allergies: NO KNOWN DRUGS ALLERGY. Social History: Denied smoking. Denied drinking. Denied drugs abuse. Family History: Positive for hypertension and kidney disease. Home Medications: Include clonazepam, spironolactone, Zoloft, insulin, gabapentin, hydrochlorothiazi de, amlodipine, olmesartan. Review of Systems: Head and Neck: Has lightheaded. GI: No nausea. No vomiting. : No polyuria. No dysuria. No hematuria. 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 Respiratory: No shortness of breath. Cardiovascular: No chest pain. Endocrine: No polydipsia. Skin: No rash. Neuro: Has lightheaded, had unstable gait. Musculoskeletal: No joint pain. Physical Examination: Vital Signs: Blood pressure 153/68, pulse of 80, afebrile. Chest: Clear to auscultation. Heart: S1, S2. Regular. Abdomen: Soft, nontender. Extremity: No edema. Neurologic: Alert. No focality. Laboratory Data: Yesterday at 5 o'clock, sodium 124, potassium 4.2, bicarb 29, BUN 14, creatinine 0. 6, calcium 9. Today, at 7 in the morning, sodium 127, potassium 4.4, bicarb 31, BUN 14, creatinine 0 .6, calcium 8.7. Urine electrolyte, urine sodium 51. Current Medications: The patient on, include: 1.IV fluid. 2.Plavix. 3.Hydralazine 100 t.i.d. 4.Spironolactone 25. 5.Diovan 160. 6.Gabapentin. 7.Clonazepam. 8.Pantoprazole. 9.Tramadol. Assessment And Plan: 1.Hyponatremia, mostly hydrochlorothiazide induced, doubt to be secondary to spironolactone. I agre e with holding hydrochlorothiazide. The patient insisted that she wants to go home. I explained to the patient risks, benefits, alternatives including fall. The patient understand and insisted to be discharged. The patient is going to need a close followup in 2-3 weeks in the office. The patient v erbalized understanding. Keep holding hydrochlorothiazide. Continue spironolactone. 2.Hypokalemia, status post supplement, resolved. 3.Hypertension, controlled, optimal with the presence of hyponatremia. Hold hydrochlorothiazide. 4.Diabetes, as by Primary. CHRISTINA/RAD Voice ID: [id number] Report ID: [id number]
--- NOTE | 2024-02-11 19:51 | PN ---
I spoke with Dr. Alvarez. Essentially, the patient was admitted with hyponatremia as an inpatient. Th e patient was on diuretics and the patient improved quickly. Her labs corrected and her symptoms res olved and the patient is in stable condition and cleared for discharge medically. Therefore, I appro naomi this code 44 as conversion from inpatient to observation. /MODL Voice ID: [id number] Report ID: [id number]
[2024-02-11] MEDS ORDERED: LATANOPROST 0.005% 2.5ML OPTH OPTH SCH ×2 (21:00)
== END 2024-02-11 16:40 | disposition home health service (06) ==
LOC: ER 15:47 → INTOOBSV 18:38 → ERHOLD 18:38 → 4TH 19:51
PROVIDERS: ADMIT Internal Medicine; ATTEND Hospitalist
DX: E87.1 Hypo-osmolality and hyponatremia (principal); E87.6 Hypokalemia; R53.1 Weakness; E11.9 Type 2 diabetes mellitus without complications; I10 Essential (primary) hypertension; I25.2 Old myocardial infarction
CPT/HCPCS: 93005; 85025; 80048 ×2; 36415; 84300; 82947 ×4; 81003; 84484; 83880; 83930; 83935; 96360; 99285; J7030; G0378

== ENCOUNTER 2024-07-04 11:53 | Observation (INO) | payer OTHER ==
[2024-07-04 15:00] LABS: Absolute Basophils 0.1 K/uL (0-0.5); Absolute Eosinophils 0.1 K/uL (0-0.5); Absolute Monocytes 0.6 K/uL (0.1-1.3); Basophils % 1.5 % (0-1.3); Eosinophils % 1.3 % (0-4.4); Hematocrit 29.1 % (36.0-45.0); Hemoglobin 9.5 g/dL (12.0-15.0); Lymphocytes % 20.7 % (15.3-44.8); MCH 20.3 pg (27.0-35.0); MCHC 32.6 g/dL (32.0-36.0); MCV 62.5 fL (80-100); MPV 6.9 fL (7.6-11.3); Monocytes % 13.3 % (3.3-12.3); Neutrophils % 63.2 % (41.7-73.7); Platelets 430 thou/uL (152-406); RBC Red Blood Cell Count 4.65 M/uL (3.86-4.86); Red Cell Distribution Width 18.5 % (12.1-15.2)
[2024-07-04 15:11] LABS: Albumin 3.2 g/dL (3.4-5.0); Albumin/Globulin Ratio 0.7 (1.1-1.8); Anion Gap 9.7 mEq/L (5.0-15.0); Bilirubin Total 0.3 mg/dL (0.2-1.0); Globulin 4.8 g/dL (2.3-3.5); Potassium 3.7 mEq/L (3.5-5.1)
--- NOTE | 2024-07-04 15:35 | EDPHYS ---
Physician Documentation [facility] Name: Gabby López Age: 79 yrs Sex: Female : 1945 Arrival Date: 07/04/2024 Time: 11:53 Bed 23 Private MD: ED Physician Christofer Noriega HPI: 07/04 12:24 This 79 yrs old Female presents to ER via Wheelchair with complaints of Abnormal Lab ms3 Results, sodium. 12:24 Gabby López is a 79-year-old female presenting to the emergency department ms3 with hyponatremia, initially identified on June 29 when her sodium level was recorded at 122 mEq/L. She reports generalized weakness, leg jerking, and visual disturbances, which may be related to her low sodium levels. She has a history of diabetes and hypertension. She also mentions chronic back pain due to scoliosis but reports it as a longstanding issue with no recent changes.. Historical: - Allergies: 12:04 No Known Allergies; jl7 - Home Meds: 12:04 Lantus U-100 Insulin 100 unit/mL subcutaneous solution 10 units 2 times per day jl7 [Active]; Humalog U-100 Insulin 100 unit/mL Sub-Q cartridge 5 units 3 times per day [Active]; clopidogrel 75 mg oral tablet daily [Active]; amlodipine-olmesartan 10-40 mg oral tablet daily [Active]; hydralazine 100 mg Oral tablet 3 times per day [Active]; pantoprazole 40 mg oral tablet, delayed release (enteric coated) daily [Active]; gabapentin 600 mg oral tablet 3 times per day [Active]; celecoxib 200 mg Oral capsule 2 times per day [Active]; duloxetine 30 mg oral capsule,delayed release (e.c.) daily [Active]; clonazepam 1 mg Oral tablet 2 times per day [Active]; sertraline 100 mg oral tablet daily [Active]; Primidone 200 mg Oral 2 times per day [Active]; - PMHx: 12:04 Anxiety; COPD; diabetes mellitus; Hypercholesterolemia; Hypertensive disorder; jl7 Myocardial infarction; scoliosis; - PSHx: 12:04 hysterectomy; neck; Tonsillectomy; jl7 - Immunization history:: Adult Immunizations up to date. - Infectious Disease History:: Denies. - Social history:: Smoking status: Patient denies any tobacco usage or history of. ROS: 12:24 Cardiovascular: Negative for chest pain, and palpitations. Respiratory: Negative for ms3 shortness of breath, cough, wheezing, and pleuritic chest pain, Abdomen/GI: Negative for abdominal pain, nausea, vomiting, diarrhea, and constipation, MS/Extremity: Negative for injury and deformity, 12:24 Constitutional: Positive for generalized weakness, Exam: 12:24 Constitutional: This is a well developed, well nourished patient who is awake, alert, ms3 and in no acute distress. Cardiovascular: Regular rate and rhythm with a normal S1 and S2. No gallops, murmurs, or rubs. Normal PMI, no JVD. No pulse deficits. Respiratory: Lungs have equal breath sounds bilaterally, clear to auscultation and percussion. No rales, rhonchi or wheezes noted. No increased work of breathing, no retractions or nasal flaring. Abdomen/GI: Soft, non-tender, with normal bowel sounds. No distension or tympany. No guarding or rebound. No evidence of tenderness throughout. Skin: Warm, dry with normal turgor. Normal color with no rashes, no lesions, and no evidence of cellulitis. Vital Signs: 12:03 BP 113 / 52; Pulse 72; Resp 15; Temp 97; Pulse Ox 97% ; Weight 59.42 kg; Height 5 ft. 4 jl7 in. ; Pain 0/10; 16:40 BP 143 / 63; Pulse 97; Resp 16; Pulse Ox 95% on R/A; db 19:10 BP 155 / 60; Pulse 91; Resp 17; Pulse Ox 96% on R/A; ha1 20:19 BP 130 / 52; Pulse 92; Resp 18; Pulse Ox 96% on R/A; ha1 12:03 Body Mass Index 22.49 (59.42 kg, 162.56 cm) jl7 12:03 Pain Scale: Adult jl7 MDM: 12:07 Medical Screening Exam initiated ms3 12:24 Differential Diagnosis Hyponatremia vs hyperglycemia vs electrolyte abnormality. ms3 15:34 Data reviewed: vital signs, nurses notes, lab test result(s), and as a result, I will ms3 admit patient. Consideration of Admission/Observation Patient was admitted/placed on observation. Management of patient was discussed with the following: Hospitalist: Dr Posada. Care significantly affected by the following chronic conditions: Diabetes, Hypertension, Chronic Obstructive Pulmonary Disease. Counseling: I had a detailed discussion with the patient and/or guardian regarding the historical points, exam findings, and any diagnostic results supporting the discharge/admit diagnosis, lab results, the need for further work-up and treatment in the hospital. ED course: Discussed plan with patient and her friend and they understand and agree with plan. All questions were answered. Discussed case with hospitalist team and they accept patient as admission.. 07/04 12:02 Order name: CBC with Diff; Complete Time: 10:51 ms3 07/04 12:02 Order name: CMP; Complete Time: 15:20 ms3 07/04 15:41 Order name: Urine Osmolality; Complete Time: 10:51 ms3 07/04 15:41 Order name: Urine Sodium Random; Complete Time: 10:51 ms3 07/04 15:41 Order name: Osmolality, Serum; Complete Time: 10:51 ms3 07/04 15:54 Order name: CBC with Automated Diff EDMS 07/04 15:54 Order name: CBC with Automated Diff; Complete Time: 10:51 EDMS 07/04 15:54 Order name: Comprehensive Metabolic Panel EDMS 07/04 15:54 Order name: Comprehensive Metabolic Panel; Complete Time: 10:51 EDMS 07/04 15:54 Order name: Basic Metabolic Panel; Complete Time: 10:51 EDMS 07/04 15:55 Order name: Cortisol; Complete Time: 11:58 EDMS 07/04 15:55 Order name: T4 Free; Complete Time: 10:51 EDMS 07/04 15:55 Order name: Thyroid Stimulating Hormone; Complete Time: 10:51 EDMS 07/04 15:55 Order name: Vitamin B12 Level; Complete Time: 10:51 EDMS 07/04 17:38 Order name: Glucose, Ancillary Testing; Complete Time: 10:51 EDMS 07/04 20:51 Order name: Glucose, Ancillary Testing; Complete Time: 10:51 EDMS 07/04 23:50 Order name: CBC Smear Scan; Complete Time: 10:51 EDMS 07/05 11:07 Order name: Basic Metabolic Panel; Complete Time: 11:58 EDMS Administered Medications: 16:28 Drug: NS 0.9% IV 1000 ml IV at 125 ml/hr once; to be given as a bolus over 60 minutes aa5 Route: IV; Rate: 125 ml/hr; Site: right forearm; 16:28 Drug: LORazepam PO 0.5 mg PO once Route: PO; aa5 19:50 Follow up: Response: No adverse reaction ha1 Disposition Summary: 07/04/24 15:34 Hospitalization Ordered Notes: Hospitalization Status: Inpatient Admission ms3 Provider: Luis Posada ms3 Condition: Stable ms3 Problem: new ms3 Symptoms: are unchanged ms3 Bed/Room Type: Standard ms3 Location: [facility] ER HOLD(07/05/24 11:26) jl7 Room Assignment: ERHOLD-(07/05/24 11:26) jl7 Diagnosis - Hypo-osmolality and hyponatremia ms3 - Muscle weakness (generalized) ms3 Forms: - Medication Reconciliation Form ms3 - SBAR form ms3 - Leadership Thank You Letter ms3 Signatures: Dispatcher [employer] EDMS Veda Vasquez Audri, RN RN aa5 [place] RN RN Trell Raza RN RN jl7 David Sullivan RN RN ja1 Neris Bajwa RN RN ll1 Christofer Noriega DO DO ms3 Kelsi Covington rv1 Harika Carpenter RN ha1 Corrections: (The following items were deleted from the chart) 18:21 15:34 Telemetry/MedSurg (Inpatient) ms3 bd 18:21 15:34 ms3 bd 18:44 18:21 [facility] ER HOLD bd ja1 18:44 18:21 ERHOLD- bd ja1 18:55 18:44 Telemetry/MedSurg (Inpatient) ja1 rv1 18:55 18:44 422 ja1 rv1 18:55 18:55 rv1 rv1 19:01 18:55 [facility] ER HOLD rv1 rv1 19:01 18:55 ERHOLD- rv1 rv1 20:12 19:01 422 rv1 cg 20:13 19:01 Telemetry/MedSurg (Inpatient) rv1 cg 20:13 20:12 cg cg 20:13 20:13 cg cg 07/05 08:44 0203 20:13 [facility] ER HOLD cg ja1 07/05 08:44 0203 20:13 ERHOLD- cg ja1 07/05 08:52 08:44 229 ja1 1 11 08:44 Telemetry/MedSurg (Inpatient) ja1 jl7 11: 08:52 1 jl7
--- NOTE | 2024-07-04 15:35 | ER ---
Nurse's Notes [facility] Name: Gabby López Age: 79 yrs Sex: Female : 1945 Arrival Date: 07/04/2024 Time: 11:53 Bed 23 Private MD: Diagnosis: Hypo-osmolality and hyponatremia;Muscle weakness (generalized) Presentation: 07/04 12:03 Chief complaint: Patient states: PCP sent for hyponatremia 122 on 29 June. jl7 Coronavirus screen: At this time, the client does not indicate any symptoms associated with coronavirus-19. Ebola Screen: No symptoms or risks identified at this time. Initial Sepsis Screen: Does the patient meet any 2 criteria? No. Patient's initial sepsis screen is negative. Does the patient have a suspected source of infection? No. Patient's initial sepsis screen is negative. Risk Assessment: Do you want to hurt yourself or someone else? Patient reports no desire to harm self or others. Onset of symptoms was June 29, 2024. 12:03 Method Of Arrival: Wheelchair jl7 12:03 Acuity: BHAVIN 2 jl7 Triage Assessment: 12:04 General: Appears in no apparent distress. uncomfortable, Behavior is calm, cooperative, jl7 appropriate for age. Pain: Denies pain. Historical: - Allergies: 12:04 No Known Allergies; jl7 - Home Meds: 12:04 Lantus U-100 Insulin 100 unit/mL subcutaneous solution 10 units 2 times per day jl7 [Active]; Humalog U-100 Insulin 100 unit/mL Sub-Q cartridge 5 units 3 times per day [Active]; clopidogrel 75 mg oral tablet daily [Active]; amlodipine-olmesartan 10-40 mg oral tablet daily [Active]; hydralazine 100 mg Oral tablet 3 times per day [Active]; pantoprazole 40 mg oral tablet, delayed release (enteric coated) daily [Active]; gabapentin 600 mg oral tablet 3 times per day [Active]; celecoxib 200 mg Oral capsule 2 times per day [Active]; duloxetine 30 mg oral capsule,delayed release (e.c.) daily [Active]; clonazepam 1 mg Oral tablet 2 times per day [Active]; sertraline 100 mg oral tablet daily [Active]; Primidone 200 mg Oral 2 times per day [Active]; - PMHx: 12:04 Anxiety; COPD; diabetes mellitus; Hypercholesterolemia; Hypertensive disorder; jl7 Myocardial infarction; scoliosis; - PSHx: 12:04 hysterectomy; neck; Tonsillectomy; jl7 - Immunization history:: Adult Immunizations up to date. - Infectious Disease History:: Denies. - Social history:: Smoking status: Patient denies any tobacco usage or history of. Screenin:48 [facility] ED Fall Risk Assessment (Adult) History of falling in the last 3 months, db including since admission No falls in past 3 months (0 pts) Confusion or Disorientation No (0 pts) Intoxicated or Sedated No (0 pts) Impaired Gait Yes (1 pt) Mobility Assist Device Used Yes (1 pt) Altered Elimination No (0 pt) Score/Fall Risk Level 0 - 2 = Low Risk Oriented to surroundings, Maintained a safe environment. Abuse screen: Denies threats or abuse. Denies injuries from another. Nutritional screening: No deficits noted. Tuberculosis screening: No symptoms or risk factors identified. Assessment: 16:49 Reassessment: Patient appears in no apparent distress at this time. Patient and/or db family updated on plan of care and expected duration. Pain level reassessed. Patient is alert, oriented x 3, equal unlabored respirations, skin warm/dry/pink. General: Appears in no apparent distress. comfortable, Behavior is calm, cooperative. Vital Signs: 12:03 BP 113 / 52; Pulse 72; Resp 15; Temp 97; Pulse Ox 97% ; Weight 59.42 kg; Height 5 ft. 4 jl7 in. ; Pain 0/10; 16:40 BP 143 / 63; Pulse 97; Resp 16; Pulse Ox 95% on R/A; db 19:10 BP 155 / 60; Pulse 91; Resp 17; Pulse Ox 96% on R/A; ha1 20:19 BP 130 / 52; Pulse 92; Resp 18; Pulse Ox 96% on R/A; ha1 12:03 Body Mass Index 22.49 (59.42 kg, 162.56 cm) jl7 12:03 Pain Scale: Adult jl7 ED Course: 11:57 Patient arrived in ED. mr 11:57 Christofer Noriega DO is Attending Physician. ms3 12:04 Triage completed. jl7 12:04 Arm band placed on Patient placed in waiting room, Patient notified of wait time. jl7 14:31 Kaila Prasad, RN is Primary Nurse. aa5 14:38 Initial lab(s) drawn, by me, sent to lab. Inserted saline lock: 22 gauge in right aa5 forearm, using aseptic technique. Blood collected. Flushed with 10 mL NS. 15:33 Luis Posada MD is Hospitalizing Provider. ms3 16:50 Patient has correct armband on for positive identification. Bed in low position. Call db light in reach. Adult w/ patient. Warm blanket given. Pillow given. 16:51 Report given to RONEY Bowie. aa5 20:20 Provided Education on: need for admit. ha1 20:20 No provider procedures requiring assistance completed. Patient admitted, IV remains in ha1 place. intact, No redness/swelling at site. 21:35 Primary Nurse role handed off by Kaila Prasad, RN rv1 22:24 Harika Carpenter RN is Primary Nurse. ha1 Administered Medications: 16:28 Drug: NS 0.9% IV 1000 ml IV at 125 ml/hr once; to be given as a bolus over 60 minutes aa5 Route: IV; Rate: 125 ml/hr; Site: right forearm; 16:28 Drug: LORazepam PO 0.5 mg PO once Route: PO; aa5 19:50 Follow up: Response: No adverse reaction ha1 Medication: 20:20 VIS not applicable for this client. ha1 Outcome: 15:34 Decision to Hospitalize by Provider. ms3 20:20 Admitted to ER Hold. Please see [facility] for further documentation. ha1 20:20 Condition: stable 20:20 Instructed on the need for admit, 07/05 14:08 Patient left the ED. ll1 Signatures: Damari Marte, Reg Reg mr Kaila Prasad, RN RONEY aa5 Trell De La Fuente RN RN jl7 Neris Bajwa RN RN ll1 Christofer Noriega, DO ms3 Harika Carpenter RN RN ha1 Azeb Grant, RN Kelsi Julian rv1
[2024-07-04] MEDS ORDERED: MORPHINE 2 MG/ML SYR IV PRN (15:50)
[2024-07-04] MEDS ORDERED: ONDANSETRON 4 MG/2 ML VIAL IV PRN (15:50)
[2024-07-04] MEDS ORDERED: ACETAMINOPHEN 500 MG TAB PO PRN (15:50)
--- NOTE | 2024-07-04 15:53 | P.HP ---
Certification for Inpatient Patient admitted to: Observation With expected LOS: <2 Midnights Patient will require the following post-hospital care: None Practitioner: I am a practitioner with admitting privileges, knowledge of patient current condition, hospital course, and medical plan of care. Services: Services provided to patient in accordance with Admission requirements found in Title 42 Section 412.3 of the Code of Federal Regulations Patient History Date of Service: 07/04/24 Reason for admission: Hyponatremia History of Present Illness: Patient 79-year-old female who was sent to the emergency room by her PCP because her sodium was low. She believes she was told that she was to go to ICU. However, she has had chronic low sodium. She was actually stopped on her sodium tablets because of unknown etiology. 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 Most likely related to one of her medications. She may benefit from long-term use of vaptans. Currently her sodium level is 124. Will start her on some IV fluids and give her salt tablets. Will repeat assess her sodium level in the morning. Will check thyroid studies and cortisol studies as well as the fractional excretion of sodium. At this time patient will be admitted for observation. Allergies No Known Allergies Allergy (Unverified 09/15/12 15:18) Home Medications: Amlodipine Bes/Olmesartan Med [Amlodipine-Olmesartan 10-40 mg] 1 each PO DAILY 02/10/24 Brimonidine Tartrate/Timolol [Brimonidine-Timolol 0.2%-0.5%] 1 drop OP BID 02/10/24 Carboxymethyl/Gly/Poly80/Pf [Refresh Optive Advanced Drops] 1 each OP TID 02/10/24 Celecoxib 200 mg PO BIDWM 02/10/24 Clopidogrel Bisulfate [Plavix*] 75 mg PO DAILY 02/10/24 Gabapentin [Neurontin] 600 mg PO TID 02/10/24 Hydralazine HCl 100 mg PO TID 02/10/24 Insulin Glargine,Hum.rec.anlog [Lantus] 10 unit SQ BID 02/10/24 Insulin Lispro [Humalog] 5 unit SQ TIDWM 02/10/24 Latanoprost Ophth [Xalatan 0.005%*] 1 drop EACH EYE BEDTIME 02/10/24 Pantoprazole [Protonix Tab*] 40 mg PO DAILY 02/10/24 Primidone 50 mg PO BID 02/10/24 Sertraline [Zoloft*] 100 mg PO DAILY 02/10/24 Spironolactone [Aldactone*] 25 mg PO DAILY 02/10/24 Tiotropium [place] [Spiriva] 2 spray IH DAILY 02/10/24 Tramadol HCl [Ultram] 50 mg PO DAILY 02/10/24 clonazePAM [Clonazepam] 1 mg PO BID 02/10/24 cycloSPORINE [Restasis] 1 drop EACH EYE DAILY 02/10/24 Duloxetine HCl 30 mg PO BID 07/04/24 Hydralazine [Apresoline*] 100 mg PO DAILY 07/04/24 Insulin Glargine,Hum.rec.anlog [Semglee] 07/04/24 cycloSPORINE [Restasis] 1 drop EACH EYE DAILY 07/04/24 - Past Medical/Surgical History Diabetic: Yes -: COPD -: Anxiety -: Diabetes Mellitus -: Hypercholesterol -: hypertension -: NH -: Scolliosis, kyphosis Past Surgical History: Patient denies surgical history - Family History Father Family History: Reviewed- Non-Contributory - Social History Smoking Status: Never smoker Alcohol use: No CD- Drugs: No Caffeine use: Yes Review of Systems 10-point ROS is otherwise unremarkable Physical Examination - Physical Exam General: Alert, In no apparent distress, Oriented x3 HEENT: Atraumatic, PERRLA, Mucous membr. moist/pink, EOMI, Sclerae nonicteric Neck: Supple, 2+ carotid pulse no bruit, No LAD, Without JVD or thyroid abnormality Respiratory: Diminished Cardiovascular: Regular rate/rhythm, Normal S1 S2 Gastrointestinal: Normal bowel sounds, Soft and benign, Non-distended, No tenderness Musculoskeletal: No tenderness, Kyphosis Integumentary: No rashes Neurological: Normal speech, Normal tone, Sensation intact, Cranial nerves 3-12 intact, Normal affect, Abnormal gait, Abnormal strength Lymphatics: No axilla or inguinal lymphadenopathy - Studies Laboratory Data (last 24 hrs) 07/04/24 07/04/24 14:38 14:38 WBC 4.80 Hgb 9.5 L Hct 29.1 L Plt Count 430 H Sodium 124 L Potassium 3.7 BUN 9 Creatinine 0.58 Glucose 125 H Total Bilirubin 0.3 AST 19 ALT 21 Alkaline Phosphatase 141 H Assessment & Plan - Problems (Diagnosis) (1) Hypertension Current Visit: Yes Status: Acute (2) Hyponatremia Current Visit: No Status: Acute (3) Type II diabetes mellitus Current Visit: No Status: Acute (4) COPD (chronic obstructive pulmonary disease) Current Visit: Yes Status: Acute (5) CAD (coronary artery disease) Current Visit: Yes Status: Acute - Plan Plan: 1. Patient with hyponatremia; patient with a urine sodium of 68. 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 Chronic hyponatremia-sodium is been low since October 2023. Most likely taking medication that is causing the SIADH is a Cymbalta and Zoloft. SSRIs and serotonin norepinephrine reuptake inhibitors are notorious for causing hyponatremia. The clonazepam can also be causing this. Clinically, patient is doing okay and back to her baseline. She states that she was on sodium tablets in the past but these have been stopped. I will go ahead and resume this. Will go ahead and call this into the pharmacy. She may need to consider taking a different antidepressant. Will leave this to her primary care provider. 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 She needs physical therapy at home and will arrange for home health with physical therapy. She will also benefit from getting her vitamin B12 level elevated. Her vitamin B12 level is only 300. Will go ahead and give her a shot of B12 and send her home with sublingual vitamin B12. The sodium level should correct on this improve, but the only way to correct it is to get rid of the underlying age and this causing it as well as the possibility of using vaptan class of m edications if the benefit of being on the medication outweighs the risk. At this time patient will be admitted for observation. Anticipate discharge home in a.m. 2. Hypertension; patient is on amlodipine and Benicar. She is also on hydralazine. Will continue these and advised her to stay away from diuretics except for the Aldactone which is less likely to cause hyponatremia than the other diuretics. She could switch to the Aldactone to as needed. 3. History of type 2 diabetes; resume her insulin 4. GI DVT prophylaxis Discharge Plan: Home Plan to discharge in: 24 Hours - Advance Directives Does patient have a Living Will: No Does patient have a Durable POA for Healthcare: No - Code Status/Comfort Care Code Status Assessed: Yes Code Status: Full Code Critical Care: No Time Spent Managing PTS Care (In Minutes): 45
[2024-07-04] MEDS: NA CHLORIDE 0.9% 1,000 ML IV SCH (16:00)
[2024-07-04] MEDS ORDERED: NA CHLORIDE 0.9% 1,000 ML ONE (16:12)
[2024-07-04] MEDS ORDERED: LORAZEPAM 0.5 MG TABLET ONE (16:23)
[2024-07-04 18:47] LABS: Anion Gap 10.1 mEq/L (5.0-15.0); Potassium 4.1 mEq/L (3.5-5.1)
[2024-07-04 19:43] VITALS: BMI 24.9
[2024-07-04 23:50] LABS: Anisocytosis 1+; Blood Morphology Comment NOTED (NOT SEEN); Hypochromasia 1+; Microcytosis 1+; Platelet Estimate INCR; White Blood Cell Scan OK (OK)
[2024-07-05] MEDS ORDERED: PNEUMOCOCCAL VACCINE 0.5 ML IMVAC ONE (04:16)
[2024-07-05] MEDS: PNEUMOCOCCAL VACCINE 0.5 ML IMVAC ONE (04:23)
[2024-07-05] MEDS ORDERED: NA CHLORIDE 0.9% 1,000 ML ONE (05:24)
[2024-07-05 05:59] LABS: Absolute Basophils 0.1 K/uL (0-0.5); Absolute Lymphocytes (CBC) 0.6 K/uL (0.7-4.9); Absolute Monocytes 0.8 K/uL (0.1-1.3); Absolute Neutrophil 4.1 K/uL (1.8-8.0); Basophils % 0.9 % (0-1.3); Eosinophils % 0.7 % (0-4.4); Hematocrit 26.6 % (36.0-45.0); Hemoglobin 8.5 g/dL (12.0-15.0); Lymphocytes % 11.2 % (15.3-44.8); MCH 20.3 pg (27.0-35.0); MCHC 32.1 g/dL (32.0-36.0); MCV 63.1 fL (80-100); MPV 6.7 fL (7.6-11.3); Monocytes % 13.7 % (3.3-12.3); Neutrophils % 73.5 % (41.7-73.7); Nucleated Red Blood Cells % 0.1 % (0-0); Platelets 406 thou/uL (152-406); RBC Red Blood Cell Count 4.21 M/uL (3.86-4.86); Red Cell Distribution Width 18.4 % (12.1-15.2)
[2024-07-05 06:16] LABS: Albumin 2.6 g/dL (3.4-5.0); Albumin/Globulin Ratio 0.6 (1.1-1.8); Anion Gap 8.5 mEq/L (5.0-15.0); Bilirubin Total 0.3 mg/dL (0.2-1.0); Globulin 4.1 g/dL (2.3-3.5); Potassium 3.5 mEq/L (3.5-5.1); Protein, Total 6.7 g/dL (6.4-8.2)
[2024-07-05 06:39] LABS: Thyroid Stimulating Hormone 1.71 uIU/mL (0.358-3.740)
[2024-07-05] MEDS: PANTOPRAZOLE 40MG TABLET PO SCH (08:29)
[2024-07-05] MEDS: SODIUM CHLORIDE 1 GM TAB PO SCH (08:30)
[2024-07-05] MEDS ORDERED: CLOPIDOGREL 75 MG TABLET ONE (08:37)
[2024-07-05] MEDS ORDERED: GABAPENTIN 300 MG CAP ONE (08:37)
[2024-07-05] MEDS ORDERED: INSULIN GLARGINE 100 UNIT/ML SQ ONE (08:38)
[2024-07-05] MEDS ORDERED: TRAMADOL HCL 50 MG TAB ONE (08:38)
[2024-07-05] MEDS ORDERED: DULOXETINE 30 MG CAP PO ONE (08:38)
[2024-07-05] MEDS ORDERED: clonazePAM 0.5 MG TAB ONE (08:40)
[2024-07-05] MEDS: CYANOCOBALAMIN 1000MCG/ML INJ IM ONE (09:00)
[2024-07-05] MEDS: NA CHLORIDE 0.9% 500 ML IV ONE (09:00)
[2024-07-05] MEDS: INSULIN GLARGINE 100 UNIT/ML SQ SCH (09:00)
[2024-07-05] MEDS: clonazePAM 0.5 MG TAB PO SCH (09:00)
[2024-07-05] MEDS: UREA 15 GM POWDER PACKET PO SCH (09:00)
[2024-07-05] MEDS: SERTRALINE HCL 100 MG TAB PO SCH (09:00)
[2024-07-05] MEDS: GABAPENTIN 300 MG CAP PO SCH (09:00)
[2024-07-05] MEDS: DULOXETINE 30 MG CAP PO SCH (09:00)
[2024-07-05] MEDS: CYANOCOBALAMIN 1,000 MCG TAB SL SCH (09:00)
[2024-07-05] MEDS: TRAMADOL HCL 50 MG TAB PO SCH (09:00)
[2024-07-05] MEDS: CLOPIDOGREL 75 MG TABLET PO SCH (09:00)
[2024-07-05 09:49] VITALS: BP 164/68; TEMP 99
[2024-07-05 11:03] LABS: Anion Gap 9.6 mEq/L (5.0-15.0); Potassium 3.6 mEq/L (3.5-5.1)
[2024-07-05 14:14] VITALS: O2SAT 96
[2024-07-05] MEDS ORDERED: UREA 15 GM POWDER PACKET PO SCH (17:00)
--- NOTE | 2024-07-06 20:19 | PN ---
This is a code 44 dictation. I discussed this case with Dr. Posada. The patient had hyponatremia, the cause of which was determined to be something that can be managed as an outpatient. Appropriate discharge instructions and follow up were provided for the patient. I agree with this code 44. JULIO CÉSAR/RAD Voice ID: [id number] Report ID: [id number]
== END 2024-07-05 11:45 | disposition home or self-care (01) ==
LOC: ER 11:53 → ERHOLD 15:50 → INTOOBSV 15:50 → 4TH 19:17 → ERHOLD 20:13
PROVIDERS: ADMIT Hospitalist; ATTEND Hospitalist
DX: E87.1 Hypo-osmolality and hyponatremia (principal); M62.81 Muscle weakness (generalized); I10 Essential (primary) hypertension; E11.9 Type 2 diabetes mellitus without complications; J44.9 Chronic obstructive pulmonary disease, unspecified; I25.10 Atherosclerotic heart disease of native coronary artery without angina pectoris; I25.2 Old myocardial infarction; F41.9 Anxiety disorder, unspecified
CPT/HCPCS: 85025 ×2; 80048 ×2; 36415; 84300; 82947 ×2; 84443; 84439; 82607; 80053 ×2; 82533; 83930; 83935; 90471; 90732; 97161; 99285; J3420; J7030 ×2; G0378 ×4

== ENCOUNTER 2024-09-17 20:38 | Inpatient (IN) | payer OTHER ==
--- OUTSIDE RECORDS SUMMARY | 2024-09-17 20:46 | XMS REPORT | Continuity of Care Document ---
Author Name Unknown Address [address] [facility] [address] [place] [address] [facility] [place] Address [address] 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 Role Phone Chun Kate DO [facility] Primary Care Physician [phone]- [phone] Barry Da Silva MD Attending Clinician [phone] TAHIR BENAVIDEZ Attending Clinician Unavailable TAHIR BENAVIDEZ Attending Clinician Unavailable BARRY DA SILVA Attending Clinician Unavail Alisia Fischer MD Attending Clinician [phone] ALISIA HOUSE Attending Clinician UnavailShannan Rene MA Attending Clinician UnavailOLIVER Naik Attending Clinician UnavailOliver Bustillos MD Attending Clinician [phone] Eliz Salinas RN Attending Clinician Unavailable Karol Mobley MD Attending Clinician + Red Zamorano MD Attending Clinician [phone] RED ZAMORANO Attending Clinician Unavailable TAHIR BENAVIDEZ Admitting Clinician Unavailable ALISIA HOUSE Admitting Clinician UnavailCHUN Valente Admitting Clinician Unavailable OLIVER STEWART Admitting Clinician UnavailOliver Bustillos MD Admitting Clinician [phone] Leandra ARREDONDO, Karol Gardner Admitting Clinician + KAROL MOBLEY Admitting Clinician Unav ailable Payers Payer Name Policy Type Policy Number Effective Date Expirati on Date Source MEDICARE PART A \\T\\ [id number] 2012 00:00:00 COMMERCIAL NON-CONTRACT GENERIC [id number] 2022 00:00:00 MEDICARE PART A AND B Medicare [id number] 2023 00:00:00 [employer] [facility] [id number] 2022 00:00:00 Problems Condition Name Condition Details Condition Category Status Onset Date Resolution Date Last Treatment Date Treating Clinician Comments Source CAD (coronary artery disease) CAD (coronary artery disease) Disease Active 08-16 00:00: 00 Abbey Lambert COPD (chronic obstructiv e pulmonary disease) COPD (chronic obstructiv e pulmonary disease) Disease Active 08-16 00:00: 00 Abbey Lambert Hyponatrem ia Hyponatrem ia Disease Active 08-16 00:00: 00 Abbey Lambert Diabetes mellitus Diabetes mellitus Disease Active 12-21 00:00: 00 Abbey Lambert Foot drop Foot drop Disease Active 12-21 00:00: 00 Abbey Lambert Hyperlipid emia Hyperlipid emia Disease Active 12-21 00:00: 00 Abbey Lambert Pain of hand Pain of hand Disease Active 12-21 00:00: 00 Abbey Lambert Lumbar radiculopa thy Lumbar radiculopa thy Disease Active 12-21 00:00: 00 Abbey Lambert History of aortic valve replacemen t History of aortic valve replacemen t Disease Active 12-21 00:00: 00 Abbey Lambert Syncope Syncope Disease Active 12-21 00:00: 00 Abbey Lambert Sensory ataxia Sensory ataxia Disease Active 12-21 00:00: 00 Abbey Lambert Acute respirator y failure with hypoxia (CMS/HCC) Acute respirator y failure with hypoxia (CMS/HCC) Disease Active 07-17 00:00: 00 Abbey Lambert Scoliosis Scoliosis Disease Active 12-09 00:00: 00 Abbey Lambert Primary hypertensi on Primary hypertensi on Disease Active 1- 00:00: 00 Abbey Lambert Essential tremor Essential tremor Disease Active 2014-06 0- 00:00: 00 Abbey Lambert Carpal tunnel syndrome (disorder) Carpal tunnel syndrome (disorder) Resolved Problem 12/13/2021 [facility] Problem Resolve d 2021-12-13 04:58:49 Abbey Stanley Allergies, Adverse Reactions, Alerts Allergy Name Allergy Type Status Severity Reaction(s) Onset Date Inactive Date Treating Clinician Comments Source NO KNOWN ALLERGIE S SYSTEMIC Active MHEOUT ALLERGIE S NOT ON FILE SYSTEMIC Active MHEOUT NO KNOWN ALLERGIE S SYSTEMIC Active MHEOUT NO KNOWN ALLERGIE S SYSTEMIC Active MHEOUT NO KNOWN ALLERGIE S Drug Class Active [facility] NO KNOWN ALLERGIE S SYSTEMIC Active MHEOUT NO KNOWN ALLERGIE S SYSTEMIC Active MHEOUT No Known Medicati on Allergie s No Known Medicati on Allergie s Active Abbey ameya Stanley NO KNOWN ALLERGIE S SYSTEMIC Active MHEOUT NO KNOWN ALLERGIE S SYSTEMIC Active MHEOUT NO KNOWN ALLERGIE S SYSTEMIC Active MHEOUT Social History Social Habit Start Date Stop Date Quantity Comments Source Gender identity 2023-08-22 15:58:43 Identifies as female gender (finding) [facility] Sexual orientation M emorial Jaedn [facility] ASSERTION Possible [facility] History of tobacco use Cigarette Smoker [facility] Alcoholic beverage intake 2024-08-16 00:00:00 2024-08-16 00:00:00 Ex-drinker (finding) [facility] History of Social function 2024-08-16 00:00:00 2024-08-16 00:00:00 [facility] Tobacco use and exposure 2023-12-22 00:00:00 2023-12-22 00:00:00 Smokeless tobacco non-user [facility] Alcohol intake 2023-07-17 00:00:00 2023-07-17 00:00:00 Current non-drinker of alcohol (finding) [facility] Sex assigned at 1945 00:00:00 1945 00:00:00 [facility] Smoking Status Start Date Stop Date Source Never smoked tobacco Abbey Lambert Ex-smoker 2023-07-17 00:00:00 2023-07-17 00:00:00 [facility] Tobacco smoking status Gerry serna Jaden Medications Ordered Medication Name Filled Medication Name Start Date Stop Date Current Medication? Ordering Clinician Indication Dosage Frequency Signature (SIG) Comments Components Source sertraline (Zoloft) 100 MG tablet sertraline (Zoloft) 100 MG tablet 09-14 00:00: 00 Yes 100mg QD TAKE 1 TABLET BY MOUTH DAILY Abbey Stanley Epic traMADol (Ultram) 50 MG tablet traMADol (Ultram) 50 MG tablet 09-06 00:00: 00 Yes [id number] 50mg QD TAKE 1 TABLET BY MOUTH DAILY Abbey Stanley Epic clonazePAM (KlonoPIN) 1 MG tablet clonazePAM (KlonoPIN) 1 MG tablet 09-06 00:00: 00 Yes [id number] TAKE ONE TABLET BY MOUTH EVERY 12 HOURS NEEDED FOR TREMOR Abbey Stanley [facility] sodium chloride 1 g tablet sodium chloride 1 g tablet 08-16 15:25: 40 Yes 1g Q.5D Take 1 g by mouth in the morning and 1 g in the evening. Abbey Lambert Iron, Ferrous Sulfate, 325 (65 Fe) MG tablet Iron, Ferrous Sulfate, 325 (65 Fe) MG tablet 08-16 15:25: 12 Yes 1{tbl} Take 1 tablet by mouth. three times a week Abbey Lambert primidone (Mysoline) 250 MG tablet primidone (Mysoline) 250 MG tablet 08-16 00:00: 00 Yes 250mg Q.5D Take 1 tablet by mouth in the morning and 1 tablet in the evening. Abbey Lambert rOPINIRole (Requip) 2 MG tablet rOPINIRole (Requip) 2 MG tablet 08-13 00:00: 00 Yes 2mg Q.5D Take 2 mg by mouth in the morning and 2 mg in the evening. Abbey Lambert primidone (Mysoline) 250 MG tablet primidone (Mysoline) 250 MG tablet 2023-06 2-30 00:00: 00 08-16 00:00 :00 No 250mg Q.5D TAKE 1 TABLET BY MOUTH 2 TIMES A DAY Abbey Stanley Epic traMADol (Ultram) 50 MG tablet traMADol (Ultram) 50 MG tablet 2023-06-13 00:00: 00 09-06 00:00 :00 No [id number] 50mg QD TAKE 1 TABLET BY MOUTH DAILY Kaylynnoria ameya Stanley Epic clonazePAM (KlonoPIN) 1 MG tablet clonazePAM (KlonoPIN) 1 MG tablet 2023-06 00:00: 00 09-06 00:00 :00 No [id number] TAKE ONE TABLET BY MOUTH EVERY 12 HOURS IF NEEDED FOR TREMOR Abbey Stanley Epic naloxone (Narcan) 4 mg/0.1 mL nasal spray naloxone (Narcan) 4 mg/0.1 mL nasal spray 02-07 00:00: 00 02-07 23:59 :00 No 4mg Administer 1 spray into affected nostril(s) if needed for opioid reversal. May repeat every 2-3 minutes if needed, alternatin g nostrils, until medical assistance becomes available. Abbey Stanley Epic sertraline (Zoloft) 100 MG tablet sertraline (Zoloft) 100 MG tablet 02-07 00:00: 00 08-06 23:59 :00 No 100mg QD Take 1 tablet by mouth 1 time each day. Abbey Stanley Epic traMADol (Ultram) 50 MG tablet traMADol (Ultram) 50 MG tablet 02-07 00:00: 00 05-13 00:00 :00 No [id number] 50mg QD Take 1 tablet by mouth 1 time each day. Abbey Stanley Epic clonazePAM (KlonoPIN) 1 MG tablet clonazePAM (KlonoPIN) 1 MG tablet 02-07 00:00: 00 05-13 00:00 :00 No [id number] 1mg Take 1 tablet by mouth every 12 hours if needed (tremor). Abbey Stanley Epic primidone (Mysoline) 250 MG tablet primidone (Mysoline) 250 MG tablet 02-01 00:00: 00 05-30 00:00 :00 No 250mg Q.5D TAKE ONE TABLET BY MOUTH TWICE A DAY Abbey Lambert traMADol (Ultram) 50 MG tablet traMADol (Ultram) 50 MG tablet 11-03 00:00: 00 02-07 00:00 :00 No [id number] 50mg QD TAKE 1 TABLET BY MOUTH DAILY Abbey Lambert gabapentin (Neurontin) 600 MG tablet gabapentin (Neurontin) 600 MG tablet 10-14 00:00: 00 08-16 00:00 :00 No Abbey Lambert neomycin-po lymyxin-dex amethasone (MAXITROL) 3.5 mg/g-10,000 unit/g-0.1 % ophthalmic ointment 10-06 14:37: 00 10-06 14:54 :42 No PRN, Starting on Thu10/07/23 at 0937, Until Thu10/07/23 at 0954, Routine, Intra-op [facility] sodium chloride (NS) injection 10-06 14:36: 00 10-06 14:54 :42 No PRN, Starting on Thu10/07/23 at 0936, Until Thu10/07/23 at 0954, Routine, Intra-op [facility] dexamethaso ne (DECADRON PHOSPHATE) injection 10-06 14:36: 00 10-06 14:54 :42 No PRN, Starting on Thu10/07/23 at 0936, Until Thu10/07/23 at 0954, Routine, Intra-op [facility] ceFAZolin (ANCEF) injection 10-06 14:36: 00 10-06 14:54 :42 No PRN, Starting on Thu10/07/23 at 0936, Until Thu10/07/23 at 0954, ZIYAD, Intra-op [facility] carbachoL (MIOSTAT) 0.01 % intraocular injection 10-06 14:35: 00 10-06 14:54 :42 No PRN, Starting on Thu10/07/23 at 0935, Until Thu10/07/23 at 0954, Routine, [facility]op [facility] chondroitin sulf-sod hyaluronate (DUOVISC VISCO ELASTIC) intraocular injection 10-06 14:28: 00 10-06 14:54 :42 No PRN, Starting on Thu10/07/23 at 0928, Until Thu10/07/23 at 0954, Routine, Intra-op [facility] EPINEPHrine (PF) 1:1,000 (1 mg/mL) (ADRENALIN (PF)) 0.5 mL in balanced salt soln no.2 irrig. (BSS) 500 mL OR irrigation 10-06 14:26: 00 10-06 14:54 :42 No PRN, Starting on Thu10/07/23 at 0926, Intra-op [facility] water for irrigation irrigation solution 10-06 14:21: 00 10-06 14:54 :42 No PRN, Starting on Thu10/07/23 at 0921, Until Thu10/07/23 at 0954, Routine, Intra-op [facility] Hyaluronida se, Human Recomb. (HYLENEX) injection 10-06 14:17: 00 10-06 14:54 :42 No PRN, Starting on Thu10/07/23 at 0917, Until Thu10/07/23 at 0954, Routine, Intra-op [facility] eye block syringe 11 mL 10-06 14:17: 00 10-06 14:54 :42 No PRN, Starting on Thu10/07/23 at 0917, Until Thu10/07/23 at 0954, Intra-op [facility] cyclopent 1%-tropic 1%-phenyl 2.5%-ketor 0.5% (MYDRIATIC #5) ophthalmic solution syringe 0.5 mL 10-06 13:30: 00 10-06 13:23 :00 No .5mL 0.5 mL, Left Eye, ONCE, 1 dose, On Thu10/07/23 at 0830, Routine, DSU Pre-op [facility] lactated ringers IV infusion 1,000 mL 10-06 13:30: 00 10-06 13:24 :00 No 1000mL at 42 mL/hr, 1,000 mL, IV Infusion, ONCE, 1 dose, On Thu10/07/23 at 0830, Routine, DSU Pre-op [facility] Melatonin 5 mg tablet 10-06 10:15: 58 Yes 10mg Take 2 tablets by mouth at bedtime. [facility] hydroCHLORO thiazide 25 mg tablet 10-06 10:15: 58 Yes 25mg Take 1 tablet by mouth in the morning. [facility] tiotropium 18 mcg inhalation 10-06 10:15: 58 Yes 18ug Inhale 1 capsule in the morning and 1 capsule in the evening. [facility] traMADoL 50 mg tablet 10-06 10:15: 58 Yes 50mg Take 1 tablet by mouth in the morning. [facility] insulin lispro, human, (HUMALOG U-100 INSULIN) 100 unit/mL injection 10-06 10:15: 58 Yes 5U inject 5 Units under the skin in the morning and 5 Units at noon and 5 Units in the evening. inject with meals. [facility] carboxymeth ylce-glycer n-poly80 (REFRESH OPTIVE ADVANCED) 0.5-1-0.5 % Drop 10-06 10:15: 58 Yes 1[drp] Place 1 Drop in each eye in the morning and 1 Drop at noon and 1 Drop in the evening. Both eyes [facility] spironolact one 25 mg tablet 10-06 10:15: 58 Yes 25mg Take 1 tablet by mouth in the morning. [facility] celecoxib (CELEBREX) 200 mg capsule 10-06 10:15: 58 Yes 200mg Take 1 capsule by mouth in the morning and 1 capsule in the evening. Take with meals. 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 [facility] traMADoL 50 mg tablet 07-21 16:02: 06 Yes 50mg Take 1 tablet by mouth in the morning. [facility] insulin lispro, human, (HUMALOG U-100 INSULIN) 100 unit/mL injection 07-21 16:02: 06 Yes 5U inject 5 Units under the skin in the morning and 5 Units at noon and 5 Units in the evening. inject with meals. [facility] Melatonin 5 mg tablet 07-21 16:02: 06 Yes 5mg Take 1 tablet by mouth at bedtime. [facility] carboxymeth ylce-glycer n-poly80 (REFRESH OPTIVE ADVANCED) 0.5-1-0.5 % Drop 07-21 16:02: 06 Yes 1[drp] Place 1 Drop in each eye in the morning and 1 Drop at noon and 1 Drop in the evening. Both eyes [facility] hydrALAZINE 50 mg tablet 07-21 00:00: 00 Yes [id number] 50mg Take 1 tablet by mouth in the morning and 1 tablet at noon and 1 tablet in the evening. [facility] ipratropium -albuteroL 0.5 mg-3 mg(2.5 mg base)/3 mL nebulizer solution 07-21 00:00: 00 Yes [id number] 3mL Inhale 3 mL 4 (four) times daily. [facility] Nebulizer & Compressor For Neb Daksha 07-21 00:00: 00 Yes [id number] Use as directed [facility] Nebulizer Accessories Kit 07-21 00:00: 00 Yes [id number] Use as directed [facility] KCL (KLOR-CON M20) tablet 20 mEq 07-20 14:00: 00 07-20 20:25 :00 No 20meq 20 mEq, Oral, Q2H, 4 doses, First dose on Thu07/20/23 at 0800, Last dose on Thu07/20/23 at 1400, Routine [facility] KCL (KLOR-CON M20) tablet 40 mEq 07-20 12:15: 00 07-20 14:57 :00 No 40meq 40 mEq, Oral, ONCE, 1 dose, On Thu07/20/23 at 0615, Routine [facility] traMADoL (ULTRAM) tablet 50 mg 07-20 03:30: 00 07-20 03:13 :00 No 50mg 50 mg, Oral, ONCE, 1 dose, On Thu07/19/23 at 2130, Routine [facility] benzocaine- menthoL (CEPACOL SORE THROAT (MIK-MEN)) lozenge 1 Lozenge 07-20 02:56: 58 Yes 1{lozen ge} 1 Lozenge, Oral, Q4HPRN, Starting on Thu07/19/23 at 2056, Until Discontinu ed, Routine, Sore throat [facility] iopamidol (ISOVUE 370-500 mL) injection 60 mL 07-19 01:22: 00 07-19 01:22 :00 No [id number] 60mL 60 mL, Intravenou s, ONCE, 1 dose, On 07/18/23 at 1930, [facility] traMADoL (ULTRAM) tablet 50 mg 07-18 17:00: 00 Yes 50mg 50 mg, Oral, DAILY, First dose (after last modificati on) on 07/18/23 at 1100, Until Discontinu ed, Routine [facility] clonazePAM (KLONOPIN) tablet 1 mg 07-18 17:00: 00 Yes 1mg 1 mg, Oral, BID, First dose (after last modificati on) on 07/18/23 at 1100, Until Discontinu ed, [facility]ine [facility] SERTraline (ZOLOFT) tablet 100 mg 07-18 15:00: 00 Yes 100mg 100 mg, Oral, DAILY, First dose on 07/18/23 at 0900, Until Discontinu ed, Routine [facility] losartan (COZAAR) tablet 100 mg 07-18 15:00: 00 Yes 100mg 100 mg, Oral, DAILY, First dose on 07/18/23 at 0900, Until Discontinu ed [facility] clopidogreL (PLAVIX) 75 mg tablet 75 mg 07-18 15:00: 00 Yes 75mg 75 mg, Oral, DAILY, First dose on 07/18/23 at 0900, Until Discontinu ed, Routine [facility] ergocalcife rol (vitamin d2) (CALCIFEROL ) capsule 50,000 Units 07-18 15:00: 00 08-28 13:59 :00 No [id number] 50,000 Units, Oral, QWEEKLY, 6 doses, First dose on 07/18/23 at 0900, Last dose on 08/22/23 at 0900, Routine [facility] Sliding Scale Insulin - Lispro (HumaLOG) 07-18 03:00: 00 Yes Subcutaneo us, TID MEALS+HS, First dose on Thu07/17/23 at 2100, Until Discontinu ed, [facility] atorvastati n (LIPITOR) tablet 20 mg 07-18 03:00: 00 Yes 20mg 20 mg, Oral, QHS, First dose on Thu07/17/23 at 2100, Until Discontinu ed [facility] melatonin (MELATIN) tablet 6 mg 07-18 03:00: 00 Yes 6mg 6 mg, Oral, QHS, First dose on Thu07/17/23 at 2100, Until Discontinu ed [facility] latanoprost (XALATAN) 0.005 % ophthalmic drops 1 Drop 07-18 03:00: 00 Yes 1[drp] 1 Drop, Both Eyes, QHS, First dose on Thu07/17/23 at 2100, Until Discontinu ed, Routine [facility] timolol (TIMOPTIC) 0.5 % ophthalmic solution 1 Drop 07-18 02:00: 00 Yes 1[drp] 1 Drop, Both Eyes, BID, First dose on Thu07/17/23 at 1999, Until Discontinu ed, Routine [facility] cycloSPORIN E (RESTASIS) 0.05 % drops 1 Drop 07-18 02:00: 00 Yes 1[drp] 1 Drop, Both Eyes, Q12H, First dose on Thu07/17/23 at 1999, Until Discontinu ed, Routine [facility] primidone (MYSOLINE) tablet 250 mg 07-18 02:00: 00 Yes 250mg 250 mg, Oral, BID, First dose on Thu07/17/23 at 1999, Until Discontinu ed, Routine [facility] insulin glargine (LANTUS U-100) injection 10 Units 07-18 02:00: 00 Yes 10U 10 Units, Subcutaneo us, BID, First dose on Thu07/17/23 at 1999, Until Discontinu ed, Routine [facility] gabapentin (NEURONTIN) tablet 600 mg 07-18 02:00: 00 Yes 600mg 600 mg, Oral, TID, First dose on Thu07/17/23 at 1999, Until Discontinu ed, Routine [facility] amLODIPine (NORVASC) tablet 5 mg 07-18 02:00: 00 Yes 5mg 5 mg, Oral, BID, First dose on Thu07/17/23 at 2000, Until Discontinu ed, Routine [facility] glucagon (GLUCAGEN DIAGNOSTIC KIT) injection 1 mg 07-17 23:02: 24 Yes 1mg 1 mg, Intramuscu lar, PRN, Starting on Thu07/17/23 at 1702, Until Discontinu ed, ZIYAD, Blood Glucose < or = 70 mg/dL and patient is NPO, unable to swallow or has mental changes. [facility] dextrose 50 % in water (D50W) injection 25 mL 07-17 23:02: 24 Yes 25mL 25 mL, Slow IV Push, PRN, Starting on Thu07/17/23 at 1702, Until Discontinu ed, ZIYAD, Blood Glucose < or = 70 mg/dL and patient is NPO, unable to swallow or has mental status changes. [facility] insulin lispro (human) (HumaLOG U-100) injection 5 Units 07-17 23:00: 00 Yes 5U 5 Units, Subcutaneo us, TID MEALS, First dose on Thu07/17/23 at 1700, Until Discontinu ed, Routine [facility] enoxaparin (LOVENOX) injection 40 mg 07-17 23:00: 00 Yes 40mg 40 mg, Subcutaneo us, DAILY, First dose on Thu07/17/23 at 1700, Until Discontinu ed, Routine [facility] pantoprazol e (PROTONIX) EC tablet 40 mg 07-17 21:30: 00 Yes 40mg 40 mg, Oral, DAILY, First dose on Thu07/17/23 at 1530, Until Discontinu ed, Routine [facility] hydrALAZINE (APRESOLINE ) tablet 50 mg 07-17 21:30: 00 Yes 50mg 50 mg, Oral, TID, First dose on Thu07/17/23 at 1530, Until Discontinu ed, Routine [facility] traMADoL (ULTRAM) tablet 50 mg 07-17 21:18: 09 07-18 16:49 :23 No 50mg 50 mg, Oral, Q8HPRN, Starting on Thu07/17/23 at 1518, Until 07/18/23 at 1049, Routine, Pain (scale 7-10) [facility] clonazePAM (KLONOPIN) tablet 1 mg 07-17 21:13: 58 07-18 16:48 :58 No 1mg 1 mg, Oral, BIDPRN, Starting on Thu07/17/23 at 1513, Until 07/18/23 at 1048, Routine, anxiety [facility] sulfur hexafluorid e microsphr (LUMASON) injection 5 mL 07-17 21:00: 00 07-17 21:00 :00 No [id number] 5mL 5 mL, Intravenou s, ONCE, 1 dose, On Thu07/17/23 at 1500, Routine [facility] ondansetron (ZOFRAN (PF)) injection 4 mg 07-17 15:34: 54 Yes 4mg 4 mg, Slow IV Push, Q6HPRN, Starting on Thu07/17/23 at 0934, Until Discontinu ed, Routine, Nausea and Vomiting (N/V) [facility] acetaminoph en-codeine (TYLENOL #3) 300-30 mg tablet 1 tablet 07-17 15:34: 36 07-19 15:33 :36 No 1{tbl} 1 tablet, Oral, Q6HPRN, Starting on Thu07/17/23 at 0934, Until 07/19/23 at 0933, Routine, Pain (scale 4-6) [facility] acetaminoph en (TYLENOL) tablet 650 mg 07-17 15:34: 32 Yes 650mg 650 mg, Oral, Q6HPRN, Starting on Thu07/17/23 at 0934, Until Discontinu ed, Routine, Pain (scale 1-3) [facility] telmisartan 80 mg tablet 07-17 15:18: 38 07-17 00:00 :00 No 80mg Take 80 mg by mouth daily. [facility] metoprolol tartrate 100 mg tablet 07-17 15:18: 38 07-17 00:00 :00 No 100mg Take 1 tablet by mouth in the morning and 1 tablet in the evening. [facility] atorvastati n 40 mg tablet 07-17 15:18: 38 07-17 00:00 :00 No 40mg Take 1 tablet by mouth at bedtime. [facility] dapaglifloz in propanediol (FARXIGA) 5 mg tablet 07-17 15:18: 38 07-17 00:00 :00 No 5mg Take 1 tablet by mouth in the morning. [facility] spironolact one 25 mg tablet 07-17 15:18: 38 07-17 00:00 :00 No 25mg Take 1 tablet by mouth in the morning. [facility] traZODone 50 mg tablet 07-17 15:18: 38 07-17 00:00 :00 No 50mg Take 1 tablet by mouth at bedtime. [facility] aspirin tablet 325 mg 07-17 15:00: 00 07-17 15:38 :22 No 325mg 325 mg, Oral, DAILY, First dose on Thu07/17/23 at 0900, Until Discontinu ed, ZIYAD [facility] ipratropium -albuteroL (DUONEB) 0.5 mg-3 mg(2.5 mg base)/3 mL nebulizer solution 3 mL 07-17 14:00: 00 Yes 3mL 3 mL, Inhalation , QID, First dose on Thu07/17/23 at 0800, Until Discontinu ed, ZIYAD [facility] traMADoL (ULTRAM) tablet 50 mg 07-17 13:30: 00 07-17 12:50 :00 No 50mg 50 mg, Oral, ONCE, 1 dose, On Thu07/17/23 at 0730, Routine [facility] ipratropium -albuteroL (DUONEB) 0.5 mg-3 mg(2.5 mg base)/3 mL nebulizer solution 3 mL 07-17 11:15: 00 07-17 10:09 :00 No 3mL 3 mL, Inhalation , ONCE, 1 dose, On Thu07/17/23 at 0515, [facility] methylpredn isolone sod succ (SOLU-MEDRO L) injection 125 mg 07-17 11:15: 00 07-17 10:07 :00 No 125mg 125 mg, Slow IV Push, ONCE NOW, 1 dose, On Thu07/17/23 at 0515, [facility] HEPARIN SODIUM (PORCINE) 1,000 UNIT/ML BOLUS ACS ORDER SET 07-17 11:00: 00 07-17 11:31 :00 No 60U/kg 3,402 Units (60 Units/kg ?56.7 kg), IV Push, ONCE, 1 dose, On Thu07/17/23 at 0500, [facility] heparin 25,000 Units/250 mL (Premixed Bag) in 0.45 % NS 07-17 10:57: 44 07-17 15:35 :28 No 700U/h 700 Units/hr (7 mL/hr), IV Infusion, TITRATE, Parameters in Admin. Instr., Starting on Thu07/17/23 at 0457
In itiate dosing:&nb sp; & nbsp;&nbsp ; -Patient 83 kg or under: 700 Units/hr (Calculate d dose at 12 units/kg/h r) &n bsp; &nbs p; -Patient over 83 k,000 units/hr&n bsp;DO NOT Exceed the MAXIMUM 1,000 units/hr for initiation of heparin drip.&nbsp ; CAU TION - If LMWH given in ER, AVOID bolus and start next dose/drip 12 hrs after ER dosage.&nb sp; M ust program rate using programmab le infusion pump.&nbsp ; Татьяна ck with the ordering provider first prior to any administra tion should the patient be on existing/a dditional anticoagul ant therapy.&n bsp; Range, Dosing and Testing&nb sp; - aPTT < 40: & nbsp;Bolus 3000 units, increase rate 100 units/hr.& nbsp;- aPTT 40-49:&nbs p; In crease rate 50 units/hr. - aPTT 50-70:&nbs p; NO CHANGE.&nb sp;- aPTT 71-85:&nbs p; De crease rate 50 units/hr.& nbsp;- aPTT 86-100:&nb sp; H old 30 minutes, decrease rate 100 units/hr.& nbsp;- aPTT 101-150:&n bsp; Hold 60 minutes, decrease rate 150 units/hr.& nbsp;- aPTT > 150: Hold 60 minutes, decrease rate 300 units/hr.& nbsp;&nbsp ;Check aPTT 6 hours after initiation , then Q6H after every change, aPTT Q12H once therapeuti c levels are reached.&n bsp; DO NOT ADJUST INITIAL BOLUS OR INITIAL INFUSION RATE.
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 [facility] olmesartan 40 mg tablet 2022-06 00:00: 00 Yes 40mg Take 1 tablet by mouth in the morning. [facility] celecoxib (CELEBREX) 200 mg capsule 2022-06 00:00: 00 07-21 00:00 :00 No 200mg Take 1 capsule by mouth in the morning and 1 capsule in the evening. Take with meals. 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, Weight Memrosa Stanley clonazePAM 1 mg oral tablet 02-17 14:23: 00 Yes 1 mg = 1 tab, PO, BID, # 60 tab, 3 Refill(s), Pharmacy: [facility] [id number], 152.4, cm, 01/07/23 11:45:00 CDT, Height, 56.08, kg, 01/07/23 11:45:00 CDT, Weight Memrosa Stanley primidone 250 mg oral tablet 12-11 13:38: 00 Yes See Instructio ns, TAKE ONE TABLET BY MOUTH TWICE A DAY, # 60 tab, 6 Refill(s), Pharmacy: [facility] [id number], 152.4, cm, 10/17/22 10:57:00 CDT, Height, 54.261, kg, 10/17/22 10:57:00 CDT, Weight Memoria ameya Stanley sertraline 100 mg oral tablet 12-05 19:45: 00 Yes = 1 tab, PO, Daily, # 90 tab, 1 Refill(s), Pharmacy: [facility] [id number], 152.4, cm, 10/17/22 10:57:00 CDT, Height, 54.261, kg, 10/17/22 10:57:00 CDT, Weight Memoria l Jaden tramadol 50 mg oral tablet 12-03 21:49: 00 Yes 50 mg = 1 tab, PO, Daily, # 30 tab, 4 Refill(s), Pharmacy: [facility] [id number], 152.4, cm, 10/17/22 10:57:00 CDT, Height, 54.261, kg, 10/17/22 10:57:00 CDT, Weight Memoria l Jaden clonazePAM 1 mg oral tablet 10-17 16:22: 00 Yes 1 mg = 1 tab, PO, BID, # 60 tab, 3 Refill(s), Pharmacy: [facility] [id number], 152.4, cm, 10/17/22 10:57:00 CDT, Height, 54.261, kg, 10/17/22 10:57:00 CDT, Weight Memoria ameya Stanley CeleBREX 200 mg oral capsule 10-17 15:57: 00 Yes 200 mg = 1 cap, PO, BID, 0 Refill(s) Memoria l Jaden celecoxib (CeleBREX) 200 MG capsule celecoxib (CeleBREX) 200 MG capsule 10-17 00:00: 00 Yes 200mg 200 mg = 1 cap, PO, BID, 0 Refill(s) Mem[facility] l [facility] tramadol 50 mg oral tablet 09-03 14:51: 00 Yes 50 mg = 1 tab, PO, Daily, # 30 tab, 2 Refill(s), Pharmacy: [facility] [id number], 152.4, cm, 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, 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, 53.75, kg, 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, Weight Memoria l Jaden sertraline 100 mg oral tablet 1- 19:10: 00 Yes = 1 tab, PO, Daily, # 60 tab, 3 Refill(s), Pharmacy: [facility] [id number], 152.4, cm, 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, 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, 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, kg, 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, Weight Memoria l Jaden primidone 250 mg oral tablet 1-17 16:35: 00 Yes = 1 tab, PO, BID, # 60 tab, 5 Refill(s), Pharmacy: [facility] [id number], 152.4, cm, 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, 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, 53.75, kg, 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, Weight Memoria l Jaden tramadol 50 mg oral tablet 1-05 19:03: 00 Yes 50 mg = 1 tab, PO, Daily, # 30 tab, 2 Refill(s), Pharmacy: [facility] [id number], 149.86, cm, 03/12/22 11:24:00 CDT, Height, 52.898, kg, 03/12/22 11:24:00 CDT, Weight Memoria l Jaden tramadol 50 mg oral tablet 2021-06 0-06 16:13: 00 Yes 50 mg = 1 tab, PO, Daily, # 30 tab, 2 Refill(s), Pharmacy: [facility] [id number], 149.86, cm, 12/10/21 11:13:00 CDT, Height, 53.409, kg, 12/10/21 11:13:00 CDT, Weight Memoria l Jaden clonazePAM 1 mg oral tablet 9-20 21:52: 00 Yes 1 mg = 1 tab, PO, BID, # 60 tab, 3 Refill(s), Pharmacy: [facility] [id number], 149.86, cm, 12/10/21 11:13:00 CDT, Height, 53.409, kg, 12/10/21 11:13:00 CDT, Weight Memoria l Eugene primidone 250 mg oral tablet -12 16:23: 00 Yes See Instructio ns, TAKE ONE TABLET BY MOUTH TWICE A DAY, # 60 tab, 5 Refill(s), Pharmacy: [facility] [id number], 149.86, cm, 12/10/21 11:13:00 CDT, Height, 53.409, kg, 12/10/21 11:13:00 CDT, Weight Memoria l Eugene primidone 250 mg oral tablet -16 21:07: 00 No See Instructio ns, TAKE ONE TABLET BY MOUTH TWICE A DAY, # 60 tab, 5 Refill(s), Pharmacy: [facility] [id number], 152.4, cm, 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, Height, 56.818, kg, 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, Weight Memoria l Eugene sertraline 100 mg oral tablet 06-11 18:04: 00 Yes See Instructsheree anderson, TAKE ONE TABLET BY MOUTH DAILY, # 90 tab, 3 Refill(s), Pharmacy: [facility] [id number], 152.4, cm, 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, Height, 56.818, kg, 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, Weight Memoria l Eugene primidone 250 mg oral tablet 2020-06 16:52: 00 Yes See Instructsheree anderson, TAKE ONE TABLET BY MOUTH TWICE A DAY, # 60 tab, 2 Refill(s), Pharmacy: [facility] [id number], 152.4, cm, 03/08/21 10:15:00 CDT, Height, 58.182, kg, 03/08/21 10:15:00 CDT, Weight Memoria l Eugene tramadol hydrochlori de 50 MG Oral Tablet 2020-06 15:45: 00 Yes 50 mg = 1 tab, PO, Daily, X 30 day, # 30 tab, 2 Refill(s), Pharmacy: [facility] [id number], 152.4, cm, 03/08/21 10:15:00 CDT, Height, 58.182, kg, 03/08/21 10:15:00 CDT, Weight Memoria l Jaden primidone 250 mg oral tablet 11-21 18:12: 00 Yes See Instructio ns, TAKE ONE TABLET BY MOUTH TWICE A DAY, # 60 tab, 4 Refill(s), Pharmacy: [facility] [id number], 152.4, cm, 09/06/20 11:30:00 CDT, Height, 60.909, kg, 09/06/20 11:30:00 CDT, Weight Memoria ameya Stanley sertraline 100 mg oral tablet 07-16 23:22: 00 Yes See Instructio ns, TAKE ONE TABLET BY MOUTH DAILY, # 90 tab, 3 Refill(s), Pharmacy: [facility] [id number], 152.4, cm, 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, Height, 61.818, kg, 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, Weight Memoria l Jaden olmesartan 40 mg oral tablet 02-07 16:19: 00 Yes 40 mg = 1 tab, PO, Daily, 0 Refill(s) Memoria l Eugene olmesartan (BENIcar) 40 MG tablet olmesartan (BENIcar) 40 MG tablet 02-07 00:00: 00 Yes 40mg 40 mg = 1 tab, PO, Daily, 0 Refill(s) Memoria ameya Jaden Epic clonazePAM 1 mg oral tablet 12-05 15:38: 00 Yes 1 mg = 1 tab, PO, BID, # 60 tab, 2 Refill(s), Pharmacy: [place] [id number], 152.4, cm, 11/04/19 11:00:00 CDT, Height, 63.182, kg, 11/04/19 11:00:00 CDT, Weight Memoria l Eugene primidone 250 mg oral tablet 11-03 16:13: 00 Yes 250 mg = 1 tab, PO, BID, # 60 tab, 6 Refill(s), Pharmacy: [place] [id number] Memoria l Jaden gabapentin 11-03 15:50: 00 Yes 600 mg, PO, TID, 0 Refill(s) Memoria l Jaden irbesartan 300 mg oral tablet 11-03 15:50: 00 Yes 300 mg = 1 tab, PO, Daily, # 30 tab, 0 Refill(s) Memoria l Eugene clopidogrel 75 MG Oral Tablet [Plavix] 11-03 15:50: 00 Yes 75 mg = 1 tab, PO, Daily, # 30 tab, 0 Refill(s) Abbey Stanley Sertraline 100 MG Oral Tablet [Zoloft] 11-03 15:50: 00 No 100 mg = 1 tab, PO, Daily, # 30 tab, 0 Refill(s) Abbey Stanley Restasis 11-03 15:50: 00 Yes BOTH EYES, Q12H, 0 Refill(s) Abbey Stanley latanoprost 11-03 15:50: 00 No QPM, 0 Refill(s) Abbey Stanley Insulin Lispro 100 UNT/ML Injectable Solution 11-03 15:50: 00 Yes See Special Instructio ns, SUB-Q, TID-Before Meals, Check blood sugar before breakfast, lunch,and dinner,and inject correction doses: Inject 3 unit if Sugar 150-199, Inject 6 units if Sugar 200-249, Inject 9 units if Sugar 250-299, Inject 12 units if S... Abbey Stanley Insulin Glargine 100 UNT/ML Injectable Solution [Lantus] 11-03 15:50: 00 Yes SUB-Q, Daily, 0 Refill(s) Abbey Stanley gabapentin 11-03 15:50: 00 Yes 600 mg, PO, TID, 0 Refill(s) Abbey Stanley Plavix 75 mg oral tablet 11-03 15:50: 00 Yes 75 mg = 1 tab, PO, Daily, # 30 tab, 0 Refill(s) Abbey Stanley Restasis 11-03 15:50: 00 Yes BOTH EYES, Q12H, 0 Refill(s) Abbey Stanley Humalog 100 units/mL - (High CD) 11-03 15:50: 00 Yes See Special Instructio ns, SUB-Q, TID-Before Meals, Check blood sugar before breakfast, lunch,and dinner,and inject correction doses: Inject 3 unit if Sugar 150-199, Inject 6 units if Sugar 200-249, Inject 9 units if Sugar 250-299, Inject 12 units if S... Abbey Stanley Lantus 100 units/mL 11-03 15:50: 00 Yes 20 unit, SUB-Q, BID, 0 Refill(s) Abbey Stanley clopidogrel (Plavix) 75 MG tablet clopidogrel (Plavix) 75 MG tablet 11-03 00:00: 00 Yes 75mg 75 mg = 1 tab, PO, Daily, # 30 tab, 0 Refill(s) Abbey Stanley Epic insulin glargine (Lantus) 100 UNIT/ML injection insulin glargine (Lantus) 100 UNIT/ML injection 11-03 00:00: 00 Yes 20 unit, SUB-Q, BID, 0 Refill(s) Abbey Stanley Epic insulin lispro (Humalog) 100 UNIT/ML injection insulin lispro (Humalog) 100 UNIT/ML injection 11-03 00:00: 00 Yes 5U Inject 5 Units under the skin. Abbey Ayalaann Petra sertraline 100 mg oral tablet 09-22 16:16: 00 Yes = 1 tab, PO, Daily, # 30 tab, 5 Refill(s), Pharmacy: [place] [id number] Abbey Stanley clonazePAM 1 mg oral tablet 09-06 15:46: 03 Yes See Amy anderson, # 60 tab, Refill(s) 2, TAKE ONE TABLET BY MOUTH TWICE A DAY, Pharmacy: [place] [id number] Kaylynnrosa hou Jaden tramadol hydrochlori de 50 MG Oral Tablet 07-15 17:21: 00 Yes 50 mg = 1 tab, PO, BID, # 180 tab, 1 Refill(s) Abbey Stanley primidone 50 mg oral tablet 07-15 17:21: 00 Yes 200 mg = 4 tab, PO, BID, # 240 tab, 3 Refill(s), Pharmacy: [place] [id number] Kaylynnrosa ameya Stanley Hydralazine Hydrochlori de 25 MG Oral Tablet 06-08 21:29: 00 Yes 25 mg = 1 tab, PO, BID, # 90 tab, 3 Refill(s) Kaylynnrosa Stanley valsartan 320 MG Oral Tablet [Diovan] 06-08 21:29: 00 Yes 320 mg = 1 tab, PO, Daily, # 30 tab, 0 Refill(s) Abbey Stanley Restasis 06-08 21:29: 00 Yes BOTH EYES, Q12H, 0 Refill(s) Abbey Stanley latanoprost 0.05 MG/ML Ophthalmic Solution [Xalatan] 06-08 21:29: 00 Yes 1 drp, QPM, 0 Refill(s) Abbey Stanley hydrALAZINE 25 mg oral tablet 06-08 21:29: 00 Yes 25 mg = 1 tab, PO, BID, # 90 tab, 3 Refill(s) Abbey Stanley Xalatan ophthalmic 0.005% solution 06-08 21:29: 00 Yes 1 drp, QPM, 0 Refill(s) Abbey Stanley hydrALAZINE (Apresoline ) 25 MG tablet hydrALAZINE (Apresoline ) 25 MG tablet 06-08 00:00: 00 Yes 100mg Q.5D Take 100 mg by mouth in the morning and 100 mg in the evening. Abbey hou Jaden Epic latanoprost (Xalatan) 0.005 % ophthalmic solution latanoprost (Xalatan) 0.005 % ophthalmic solution 06-08 00:00: 00 Yes 1[drp] 1 drp, QPM, 0 Refill(s) Abbey hou Jaden Epic Clonazepam 1 MG Oral Tablet [Klonopin] 2018-06 14:35: 54 Yes 1 mg = 1 tab, PO, BID, # 60 tab, 3 Refill(s), called to pharmacy Abbey Stanley sertraline 100 mg oral tablet 2018-06 16:20: 32 Yes = 1 tab, PO, Daily, # 30 tab, 5 Refill(s), Pharmacy: [facility] [address] Abbey Stanley primidone 50 mg oral tablet 2018-06 16:20: 26 Yes 200 mg = 4 tab, PO, BID, # 240 tab, 3 Refill(s), Pharmacy: [facility] [address] Abbey Stanley Clonazepam 1 MG Oral Tablet [Klonopin] 02-10 13:47: 07 Yes 1 mg = 1 tab, PO, BID, # 60 tab, 3 Refill(s), called to pharmacy Abbey Stanley primidone 50 mg oral tablet 01-17 19:55: 24 No = 3 tab, PO, BID, # 180 tab, Refill(s) 2, Pharmacy: [place] [id number] Abbey Ayalaann primidone 50 mg oral tablet 11-12 15:48: 48 Yes = 3 tab, PO, BID, # 180 tab, Refill(s) 1, Pharmacy: [place] [id number] Abbey Stanley sertraline 100 mg oral tablet 09-24 15:57: 17 Yes = 1 tab, PO, Daily, # 30 tab, 5 Refill(s), Pharmacy: [place] [address] Abbey Stanley Clonazepam 1 MG Oral Tablet [Klonopin] 09-24 15:57: 14 Yes 1 mg = 1 tab, PO, BID, # 60 tab, 3 Refill(s) Abbey Ayalaann primidone 50 mg oral tablet 08-17 22:33: 25 Yes = 3 tab, PO, BID, # 180 tab, Refill(s) 2, Pharmacy: [place] [address] Abbey Stanley Clonazepam 1 MG Oral Tablet [Klonopin] 2017-06 17:33: 06 No 1 mg = 1 tab, PO, BID, # 60 tab, 3 Refill(s) Abbey Stnaley sertraline 100 mg oral tablet 2017-06 16:41: 55 No = 1 tab, PO, Daily, # 30 tab, Refill(s) 5, Pharmacy: [place] [address] Abbey Ayalaann primidone 50 mg oral tablet 2017-06 16:58: 13 No = 3 tab, PO, BID, # 180 tab, Refill(s) 3, Pharmacy: [place] [address] Abbey hou Jaden primidone 50 mg tablet 01-14 00:00: 00 07-17 00:00 :[address] [facility] latanoprost 0.005 % ophthalmic drops 01-11 00:00: 00 Yes 1[drp] Place 1 Drop in both eyes at bedtime. [facility] pantoprazol e 40 mg EC tablet 12-31 00:00: 00 Yes 40mg Take 1 tablet by mouth in the morning. [facility] SERTraline 100 mg tablet 12-31 00:00: 00 Yes 100mg Take 1 tablet by mouth in the morning. [facility] amLODIPine 5 mg tablet 12-29 00:00: 00 Yes 5mg Take 1 tablet by mouth in the morning and 1 tablet in the evening. [facility] clopidogrel 75 mg tablet 12-29 00:00: 00 Yes 75mg Take 1 tablet by mouth in the morning. [facility] simvastatin 40 mg tablet 12-29 00:00: 00 Yes 40mg Take 1 tablet by mouth at bedtime. [facility] hydralAZINE 25 mg tablet 12-29 00:00: 00 07-21 00:00 :00 No 50mg Take 2 tablets by mouth in the morning and 2 tablets in the evening. [facility] LANTUS U-100 INSULIN 100 unit/mL solution 12-18 00:00: 00 Yes 10U inject 10 Units under the skin in the morning and 10 Units in the evening. [facility] valsartan 320 mg tablet 12-16 00:00: 00 07-17 00:00 :[address] [facility] gabapentin 600 mg tablet 11-30 00:00: 00 Yes 600mg Take 1 tablet by mouth in the morning and 1 tablet at noon and 1 tablet in the evening. [facility] clonazePAM (KlonoPIN) 1 MG tablet clonazePAM (KlonoPIN) 1 MG tablet 11-16 00:00: 00 02-07 00:00 :00 No 1{tbl} Take 1 tablet by mouth every 12 hours if needed. Abbey Lambert acetaminoph en-codeine 300-30 mg tablet 10-29 00:00: 00 07-17 00:00 :[address] [facility] Restasis 0.05 % ophthalmic emulsion Restasis 0.05 % ophthalmic emulsion 10-23 00:00: 00 Yes 1[drp] Administer 1 drop into affected eye(s). Abbey Lambert Norvasc 5 mg oral tablet 07-31 20:08: 00 Yes 5 mg = 1 tab, PO, BID, 0 Refill(s) Abbey Stanley Protonix 40 mg oral granule 07-31 20:08: 00 Yes = 1 Pack, PO, Daily, # 30 ea, 0 Refill(s) Abbey Stanley Zocor 40 mg oral tablet 07-31 20:08: 00 Yes 40 mg = 1 tab, PO, Bedtime, 0 Refill(s) Abbey Stanley amLODIPine (Norvasc) 5 MG tablet amLODIPine (Norvasc) 5 MG tablet 07-31 00:00: 00 Yes 5mg 5 mg = 1 tab, PO, BID, 0 Refill(s) Abbey hou [facility] pantoprazol e (Protonix) 40 MG packet pantoprazol e (Protonix) 40 MG packet 07-31 00:00: 00 Yes = 1 Pack, PO, Daily, # 30 ea, 0 Refill(s) Abbey hou [facility] simvastatin (Zocor) 40 MG tablet simvastatin (Zocor) 40 MG tablet 07-31 00:00: 00 Yes 40mg 40 mg = 1 tab, PO, Bedtime, 0 Refill(s) Abbey ameya [facility] Vital Signs Vital Name Observation Time Observation Value Comments S ource Systolic blood pressure 2024-08-16 15:24:00 121 mm[Hg] [facility] Diastolic blood pressure 2024-08-16 15:24:00 59 mm[Hg] [facility] Heart rate 2024-08-16 15:24:00 87 /min [facility] Body temperature 2024-08-16 15:24:00 36.78 Gilma [facility] Respiratory rate 2024-08-16 15:24:00 16 /min [facility] Body height 2024-08-16 15:24:00 151.1 cm [facility] Body weight 2024-08-16 15:24:00 57.153 kg [facility] BMI 2024-08-16 15:24:00 25.02 kg/m2 [facility] Oxygen saturation in Arterial blood by Pulse oximetry 2024-08-16 15:24:00 94 /min [facility] Systolic blood pressure 2024-08-16 15:24:00 121 mm[Hg] [facility] Diastolic blood pressure 2024-08-16 15:24:00 59 mm[Hg] [facility] Heart rate 2024-08-16 15:24:00 87 /min [facility] Body temperature 2024-08-16 15:24:00 36.78 Gilma [facility] Respiratory rate 2024-08-16 15:24:00 16 /min [facility] Body height 2024-08-16 15:24:00 151.1 cm [facility] Body weight 2024-08-16 15:24:00 57.153 kg [facility] BMI 2024-08-16 15:24:00 25.02 kg/m2 [facility] Oxygen saturation in Arterial blood by Pulse oximetry 2024-08-16 15:24:00 94 /min [facility] Systolic blood pressure 2024-02-08 11:38:00 151 mm[Hg] [facility] Diastolic blood pressure 2024-02-08 11:38:00 53 mm[Hg] [facility] Heart rate 2024-02-08 11:38:00 64 /min [facility] Body temperature 2024-02-08 11:38:00 36.5 Gilma [facility] Respiratory rate 2024-02-08 11:38:00 16 /min [facility] Body height 2024-02-08 11:38:00 149.9 cm [facility] Body weight 2024-02-08 11:38:00 61.689 kg [facility] BMI 2024-02-08 11:38:00 27.47 kg/m2 [facility] Oxygen saturation in Arterial blood by Pulse oximetry 2024-02-08 11:38:00 95 /min [facility] Systolic blood pressure 2024-02-08 11:38:00 151 mm[Hg] [facility] Diastolic blood pressure 2024-02-08 11:38:00 53 mm[Hg] [facility] Heart rate 2024-02-08 11:38:00 64 /min [facility] Body temperature 2024-02-08 11:38:00 36.5 Gilma [facility] Respiratory rate 2024-02-08 11:38:00 16 /min [facility] Body height 2024-02-08 11:38:00 149.9 cm [facility] Body weight 2024-02-08 11:38:00 61.689 kg [facility] BMI 2024-02-08 11:38:00 27.47 kg/m2 [facility] Oxygen saturation in Arterial blood by Pulse oximetry 2024-02-08 11:38:00 95 /min [facility] Systolic blood pressure 2023-12-22 11:45:00 143 mm[Hg] [facility] Diastolic blood pressure 2023-12-22 11:45:00 58 mm[Hg] [facility] Heart rate 2023-12-22 11:45:00 71 /min [facility] Body temperature 2023-12-22 11:45:00 36.22 Gilma [facility] Respiratory rate 2023-12-22 11:45:00 16 /min [facility] Body height 2023-12-22 11:45:00 152.4 cm [facility] Body weight 2023-12-22 11:45:00 60.782 kg [facility] BMI 2023-12-22 11:45:00 26.17 kg/m2 [facility] Oxygen saturation in Arterial blood by Pulse oximetry 2023-12-22 11:45:00 99 /min [facility] Systolic blood pressure 2023-12-22 11:45:00 143 mm[Hg] [facility] Diastolic blood pressure 2023-12-22 11:45:00 58 mm[Hg] [facility] Heart rate 2023-12-22 11:45:00 71 /min [facility] Body temperature 2023-12-22 11:45:00 36.22 Gilma [facility] Respiratory rate 2023-12-22 11:45:00 16 /min [facility] Body height 2023-12-22 11:45:00 152.4 cm [facility] Body weight 2023-12-22 11:45:00 60.782 kg [facility] BMI 2023-12-22 11:45:00 26.17 kg/m2 [facility] Oxygen saturation in Arterial blood by Pulse oximetry 2023-12-22 11:45:00 99 /min [facility] Systolic blood pressure 2023-10-07 15:00:00 138 mm[Hg] [facility] Diastolic blood pressure 2023-10-07 15:00:00 50 mm[Hg] [facility] Heart rate 2023-10-07 15:00:00 64 /min [facility] Respiratory rate 2023-10-07 15:00:00 16 /min [facility] Oxygen saturation in Arterial blood by Pulse oximetry 2023-10-07 15:00:00 92 /min [facility] Body temperature 2023-10-07 14:45:00 36.33 Gilma [facility] Body height 2023-09-29 17:00:00 152.4 cm [facility] Body weight 2023-09-29 17:00:00 55.339 kg [facility] BMI 2023-09-29 17:00:00 23.83 kg/m2 [facility] Systolic blood pressure 2023-10-07 13:18:00 130 mm[Hg] [facility] Diastolic blood pressure 2023-10-07 13:18:00 45 mm[Hg] [facility] Heart rate 2023-10-07 13:18:00 64 /min [facility] Respiratory rate 2023-10-07 13:18:00 17 /min [facility] Oxygen saturation in Arterial blood by Pulse oximetry 2023-10-07 13:18:00 94 /min [facility] Body temperature 2023-10-07 13:14:00 36.22 Gilma [facility] Body height 2023-09-29 17:00:00 152.4 cm [facility] Body weight 2023-09-29 17:00:00 55.339 kg [facility] BMI 2023-09-29 17:00:00 23.83 kg/m2 [facility] Heart rate 2023-07-21 17:53:00 78 /min [facility] Respiratory rate 2023-07-21 17:53:00 18 /min [facility] Oxygen saturation in Arterial blood by Pulse oximetry 2023-07-21 17:53:00 94 /min [facility] Systolic blood pressure 2023-07-21 17:30:00 162 mm[Hg] notified nurse [facility] Diastolic blood pressure 2023-07-21 17:30:00 66 mm[Hg] notified nurse [facility] Body temperature 2023-07-21 17:30:00 36.56 Gilma [facility] Body height 2023-07-17 16:16:00 162.6 cm [facility] Body weight 2023-07-17 16:16:00 55.384 kg [facility] BMI 2023-07-17 16:16:00 20.96 kg/m2 [facility] Height 2023-09-11 16:43:00 5 [ft_i] [facility] Systolic (mm Hg) 2023-09-11 16:43:00 [facility] Diastolic (mm Hg) 2023-09-11 16:43:00 [facility] Heart Rate 2023-09-11 16:43:00 [facility] Weight 2023-09-11 16:43:00 [facility] BMI Calculated 2023-09-11 16:43:00 [facility] Systolic (mm Hg) 2023-05-07 17:48:00 [facility] Diastolic (mm Hg) 2023-05-07 17:48:00 [facility] Heart Rate 2023-05-07 17:48:00 [facility] Height 2023-05-07 17:48:00 5 [ft_i] [facility] Weight 2023-05-07 17:48:00 [facility] BMI Calculated 2023-05-07 17:48:00 [facility] Systolic (mm Hg) 2023-01-07 16:23:00 [facility] Diastolic (mm Hg) 2023-01-07 16:23:00 [facility] Heart Rate 2023-01-07 16:23:00 [facility] Height 2023-01-07 16:23:00 5 [ft_i] [facility] Weight 2023-01-07 16:23:00 [facility] BMI Calculated 2023-01-07 16:23:00 [facility] Systolic (mm Hg) 2022-10-17 15:50:00 [facility] Diastolic (mm Hg) 2022-10-17 15:50:00 [facility] Heart Rate 2022-10-17 15:50:00 [facility] Height 2022-10-17 15:50:00 5 [ft_i] [facility] Weight 2022-10-17 15:50:00 [facility] BMI Calculated 2022-10-17 15:50:00 [facility] Systolic (mm Hg) 2022-06-12 16:57:00 [facility] Diastolic (mm Hg) 2022-06-12 16:57:00 [facility] Heart Rate 2022-06-12 16:57:00 [facility] Height 2022-06-12 16:57:00 5 [ft_i] [facility] Weight 2022-06-12 16:57:00 [facility] BMI Calculated 2022-06-12 16:57:00 [facility] Systolic (mm Hg) 2022-03-12 16:15:00 [facility] Diastolic (mm Hg) 2022-03-12 16:15:00 [facility] Heart Rate 2022-03-12 16:15:00 [facility] Height 2022-03-12 16:15:00 4 [ft_i] [facility] Weight 2022-03-12 16:15:00 [facility] BMI Calculated 2022-03-12 16:15:00 [facility] Systolic (mm Hg) 2021-12-10 16:01:00 [facility] Diastolic (mm Hg) 2021-12-10 16:01:00 [facility] Heart Rate 2021-12-10 16:01:00 [facility] Respitory Rate 2021-12-10 16:01:00 [facility] Height 2021-12-10 16:01:00 149.86 cm [facility] Weight 2021-12-10 16:01:00 [facility] BMI Calculated 2021-12-10 16:01:00 [facility] Systolic (mm Hg) 2021-06-11 17:34:00 [facility] Diastolic (mm Hg) 2021-06-11 17:34:00 [facility] Heart Rate 2021-06-11 17:34:00 [facility] Respitory Rate 2021-06-11 17:34:00 [facility] Height 2021-06-11 17:34:00 152.4 cm [facility] Weight 2021-06-11 17:34:00 [facility] BMI Calculated 2021-06-11 17:34:00 [facility] Systolic (mm Hg) 2021-03-08 15:11:00 [facility] Heart Rate 2021-03-08 15:11:00 [facility] Respitory Rate 2021-03-08 15:11:00 [facility] Height 2021-03-08 15:11:00 152.4 cm [facility] Weight 2021-03-08 15:11:00 [facility] BMI Calculated 2021-03-08 15:11:00 [facility] Systolic (mm Hg) 2020-12-06 15:52:00 [facility] Diastolic (mm Hg) 2020-12-06 15:52:00 [facility] Heart Rate 2020-12-06 15:52:00 [facility] Respitory Rate 2020-12-06 15:52:00 [facility] Height 2020-12-06 15:52:00 154.94 cm [facility] Weight 2020-12-06 15:52:00 [facility] BMI Calculated 2020-12-06 15:52:00 [facility] Systolic (mm Hg) 2020-09-06 16:30:00 [facility] Diastolic (mm Hg) 2020-09-06 16:30:00 [facility] Heart Rate 2020-09-06 16:30:00 [facility] Respitory Rate 2020-09-06 16:30:00 [facility] Height 2020-09-06 16:30:00 152.4 cm [facility] Weight 2020-09-06 16:30:00 [facility] BMI Calculated 2020-09-06 16:30:00 [facility] Systolic (mm Hg) 2020-06-08 17:07:00 [facility] Diastolic (mm Hg) 2020-06-08 17:07:00 [facility] Heart Rate 2020-06-08 17:07:00 [facility] Respitory Rate 2020-06-08 17:07:00 [facility] Height 2020-06-08 17:07:00 152.4 cm [facility] Weight 2020-06-08 17:07:00 [facility] BMI Calculated 2020-06-08 17:07:00 [facility] Systolic (mm Hg) 2020-02-08 16:07:00 [facility] Diastolic (mm Hg) 2020-02-08 16:07:00 [facility] Heart Rate 2020-02-08 16:07:00 [facility] Respitory Rate 2020-02-08 16:07:00 [facility] Height 2020-02-08 16:07:00 154.94 cm [facility] Weight 2020-02-08 16:07:00 [facility] BMI Calculated 2020-02-08 16:07:00 [facility] Systolic (mm Hg) 2019-11-04 16:00:00 [facility] Diastolic (mm Hg) 2019-11-04 16:00:00 [facility] Heart Rate 2019-11-04 16:00:00 [facility] Respitory Rate 2019-11-04 16:00:00 [facility] Height 2019-11-04 16:00:00 152.4 cm [facility] Weight 2019-11-04 16:00:00 [facility] BMI Calculated 2019-11-04 16:00:00 [facility] Systolic (mm Hg) 2019-06-08 16:40:00 [facility] Diastolic (mm Hg) 2019-06-08 16:40:00 [facility] Heart Rate 2019-06-08 16:40:00 [facility] Respitory Rate 2019-06-08 16:40:00 [facility] Height 2019-06-08 16:40:00 154.94 cm [facility] Weight 2019-06-08 16:40:00 [facility] BMI Calculated 2019-06-08 16:40:00 [facility] Systolic (mm Hg) 2019-03-09 15:48:00 [facility] Diastolic (mm Hg) 2019-03-09 15:48:00 [facility] Heart Rate 2019-03-09 15:48:00 [facility] Respitory Rate 2019-03-09 15:48:00 [facility] Height 2019-03-09 15:48:00 152.4 cm [facility] Weight 2019-03-09 15:48:00 [facility] BMI Calculated 2019-03-09 15:48:00 [facility] Heart Rate 2018-12-07 14:28:00 [facility] Respitory Rate 2018-12-07 14:28:00 [facility] Systolic (mm Hg) 2018-12-07 14:28:00 [facility] Diastolic (mm Hg) 2018-12-07 14:28:00 [facility] BMI Calculated 2018-12-07 14:28:00 [facility] Height 2018-12-07 14:28:00 152.4 cm [facility] Weight 2018-12-07 14:28:00 [facility] BMI Calculated 2018-09-24 15:31:00 [facility] Systolic (mm Hg) 2018-09-24 15:31:00 [facility] Diastolic (mm Hg) 2018-09-24 15:31:00 [facility] Weight 2018-09-24 15:31:00 [facility] Heart Rate 2018-09-24 15:31:00 [facility] Respitory Rate 2018-09-24 15:31:00 [facility] Height 2018-09-24 15:31:00 152.4 cm [facility] Weight 2018-05-28 17:13:00 [facility] BMI Calculated 2018-05-28 17:13:00 [facility] Systolic (mm Hg) 2018-05-28 17:13:00 [facility] Diastolic (mm Hg) 2018-05-28 17:13:00 [facility] Height 2018-05-28 17:13:00 154.94 cm [facility] Heart Rate 2018-05-28 17:13:00 [facility] Respitory Rate 2018-05-28 17:13:00 [facility] Procedures Procedure Date / Time Performed Performing Clinician Source [id number] - [place] XCAPSL CTRC RMVL INSJ IO LENS PROSTH W/O ECP 2023-10-07 14:06:00 Oliver Stewart [facility] POCT GLUCOSE (AUTOMATED) 2023-10-07 13:14:00 Oliver Stewart [facility] POCT GLUCOSE (AUTOMATED) 2023-10-07 13:14:00 Oliver Stewart [facility] POCT GLUCOSE (AUTOMATED) 2023-07-21 18:33:00 Karol Orozco [facility] POCT GLUCOSE (AUTOMATED) 2023-07-21 14:23:00 Karol Orozco [facility] MAGNESIUM 2023-07-21 11:38:00 Agnieszka Ghotra [facility] BASIC METABOLIC PANEL (NA, K, CL, CO2, GLUCOSE, BUN, CREATININE, CA) 2023-07-21 11:38:00 [facility]23-07-21 11:38:00 Agnieszka Ghotra [facility] POCT GLUCOSE (AUTOMATED) 2023-07-21 02:39:00 Karol Orozco [facility] POCT GLUCOSE (AUTOMATED) 2023-07-21 00:33:00 Karol Orozco [facility] POCT GLUCOSE (AUTOMATED) 2023-07-20 19:00:00 Karol Orozco [facility] POCT GLUCOSE (AUTOMATED) 2023-07-20 18:47:00 Karol Orozco [facility] POCT GLUCOSE (AUTOMATED) 2023-07-20 15:05:00 Karol Orozco [facility] MAGNESIUM 2023-07-20 10:16:00 Agnieszka Ghotra [facility] BASIC METABOLIC PANEL (NA, K, CL, CO2, GLUCOSE, BUN, CREATININE, CA) 2023-07-20 10:16:00 Agnieszka Ghotra [facility] CBC WITH DIFF 2023-07-20 10:16:00 Agnieszka Ghotra [facility] POCT GLUCOSE (AUTOMATED) 2023-07-19 15:21:00 Karol Orozco [facility] MAGNESIUM 2023-07-19 11:56:00 [facility] (NA, K, CL, CO2, GLUCOSE, BUN, CREATININE, CA) 2023-07-19 11:56:00 Lloyd Springer [facility] CBC WITH DIFF 2023-07-19 11:56:00 Sarah Springer [facility] POCT GLUCOSE (AUTOMATED) 2023-07-19 02:33:00 Karol Orozco [facility] CT THORAX W CONTRAST 2023-07-19 01:26:44 Lloyd Olguin [facility] POCT GLUCOSE (AUTOMATED) 2023-07-18 18:21:00 Karol Orozco [facility] RESPIRATORY PANEL BY PCR 2023-07-18 15:38:00 Lloyd Bhandari [facility] MAGNESIUM 2023-07-18 11:21:00 Sarah Springer [facility] BASIC METABOLIC PANEL (NA, K, CL, CO2, GLUCOSE, BUN, CREATININE, CA) 2023-07-18 11:21:00 Lloyd Springer [facility] LIPID PANEL (32016)(TOTAL CHOLESTEROL, TRIGLYCERIDES, HDL) 2023-07-18 11:21:00 Lloyd Springer [facility] CBC WITH DIFF 2023-07-18 11:21:00 Sarah Springer [facility] POCT GLUCOSE (AUTOMATED) 2023-07-18 02:15:00 Karol Orozco [facility] THROAT CULTURE 2023-07-17 23:20:00 Sarah Springer [facility] RAPID STREP SCREEN FOR GROUP A 2023-07-17 23:20:00 Lloyd Springer [facility] BLOOD CULTURE SCREEN 2023-07-17 21:55:00 Lloyd Olguin Nir [facility] BLOOD CULTURE SCREEN 2023-07-17 21:46:00 [facility] V[facility] B12, LEVEL 2023-07-17 21:46:00 Lloyd Springer [facility] FOLATE 2023-07-17 21:46:00 Sarah Springer [facility] FREE T4 2023-07-17 21:46:00 Sarah Springer [facility] THYROID STIMULATING HORMONE 2023-07-17 21:46:00 Lloyd Springer [facility] GLYCOSYLATED HEMOGLOBIN (A1C) 2023-07-17 21:46:00 [facility] D-DIMER 2023-07-17 21:46:00 Sarah Springer [facility] VITAMIN D, 25-OH 2023-07-17 21:46:00 Lloyd Springer [facility] FREE T3 2023-07-17 21:46:00 Sarah Springer [facility] TRANSTHORACIC ECHO (TTE) COMPLETE W/ CONTRAST 2023-07-17 20:37:00 Lloyd Springer [facility] POCT GLUCOSE (AUTOMATED) 2023-07-17 18:08:00 Karol Orozco [facility] PROTHROMBIN TIME / INR 2023-07-17 11:17:00 Jesus Benavidez [facility] ACTIVATED PARTIAL THRMPLAS YAMILETH 2023-07-17 11:17:00 Tahir Benavidez [facility] URINALYSIS 2023-07-17 10:39:00 [facility] URINE DRUG (IMMUNOASSAY) - COMPREHENSIVE DRUG SCREEN W/O REFLEX 2023-07-17 10:39:00 Tahir Benavidez [facility] ASSIGNMENT OF BENEFITS 2023-07-17 10:38:53 Docto r Unassigned, Orr [facility] NOTICE OF PRIVACY PRACTICES 2023-07-17 10:38:34 Doctor Unassigned, Orr [facility] CONSENT/REFUSAL FOR DIAGNOSIS AND TREATMENT 2023-07-17 10:38:18 Doctor Unassigned, Orr [facility] CT HEAD WO CONTRAST 2023-07-17 10:34:37 Alondra Benavidez [facility] XR CHEST 1 VW 2023-07-17 10:34:22 Tahir Benavidez [facility] HB ECG ROUTINE & RHYTHM STRIP 2023-07-17 10:10:31 Tahir Benavidez [facility] TROPONIN I 2023-07-17 10:05:00 [facility] COMP. METABOLIC PANEL (72609) 2023-07-17 10:05:00 Tahir Benavidez [facility] ETHANOL 2023-07-17 10:05:00 Tahir [facility] CBC WITH DIFF 2023-07-17 10:05:00 Tahir Benavidez [facility] RAPID INFLUENZA A/B 2023-07-17 10:05:00 Alondra Benavidez [facility] N-TERMINAL PRO-BNP 2023-07-17 10:05:00 Tahir Benavidez [facility] COVID-19 (ID NOW RAPID TESTING) 2023-07-17 10:05:00 Tahir Benavidez [facility] LAB ONLY COVID INTERPRETATION 2023-07-17 10:05:00 Tahir Benavidez [facility] AC PANEL 20 + LACTIC ACID 2023-07-17 10:04:00 Tahir Benavidez [facility] POCT GLUCOSE (AUTOMATED) 2023-07-17 09:54:00 Sarah Benavidez [facility] CRITICAL CARE 2023-07-17 09:49:00 Tahir Benavidez [facility] HOSPITAL ADMISSION 2023-07-17 06:01:00 Doctor Un assigned, [facility] Encounters Start Date/Time End Date/Time Encounter Type Admission Type Attending [facility] Care Department Encounter ID Source 2024-09-13 00:00:00 2024-09-14 10:33:37 RefBarry Patrick 1.2.840.114 350.1.13.70 8.2.7.2.686 [id number] [facility] 2024-09-05 00:00:00 2024-09-06 18:31:43 Refill Barry Da Silva 1.2.840.114 350.1.13.70 8.2.7.2.686 [id number] [facility] 2024-09-06 00:00:00 2024-09-06 18:31:02 Reffadia Barry Da Silva 1.2.840.114 350.1.13.70 8.2.7.2.686 [id number] 2024-08-17 00:04:00 2024-08-17 02:23:00 Emergency X TAHIR BENAVIDEZ DONNELL [facility] ERT [id number] [facility] 2024-08-16 15:15:00 2024-08-16 15:58:57 Office Visit Barry Da Silva 1.2.840.114 350.1.13.70 8.2.7.2.686 [id number] [facility] hou [facility] 2024-08-16 15:08:41 2024-08-16 15:58:57 Outpatient BARRY DA SILVA MHKatelynOUT [facility] [id number] [facility] 2024-06-02 00:00:00 2024-06-02 00:00:00 Outpatient R [facility] [id number] [facility] 2024-05-30 00:00:00 2024-05-30 12:34:53 Barry Gibbs 1.2.840.114 350.1.13.70 8.2.7.2.686 [id number] [facility] hou [facility] 2024-05-13 00:00:00 2024-05-13 12:50:27 Barry Gibbs 1.2.840.114 350.1.13.70 8.2.7.2.686 [id number] [facility] hou [facility] 2024-03-30 15:14:00 2024-03-30 23:59:00 Hospital Encounter Mingce Alisia JUAN FON LICENSE [facility] 1.2.840.114 350.1.13.10 4.2.7.2.[id number] [facility] 2024-03-30 00:00:00 2024-03-30 23:59:00 Outpatient R ALISIA HOUSE [facility] ACO [id number] [facility] 2024-02-25 00:00:00 2024-02-25 00:00:00 Outpatient R [facility] [id number] [facility] 2024-02-10 00:00:00 2024-02-10 00:00:00 Outpatient R [facility] [id number] [facility] 2024-02-08 11:31:17 2024-02-08 12:06:15 Outpatient BARRY DA SILVA [facility] [id number] [facility] 2024-02-08 11:30:00 2024-02-08 12:06:15 Office Visit Barry Da Silva 1.2.840.114 350.1.13.70 8.2.7.2.686 [id number] Abbey Stanley [facility] 2023-12-23 00:00:00 2024-01-23 23:52:22 Telephone Shannan Jones Shannan Brandi 1.2.840.114 350.1.13.70 8.2.7.2.686 [id number] Abbey Stanley [facility] 2023-12-22 11:30:00 2023-12-22 12:15:46 Office Visit SofiBarry byrne 1.2.840.114 350.1.13.70 8.2.7.2.686 [id number] Abbey Stanley [facility] 2023-12-22 11:23:43 2023-12-22 12:15:46 [id number] [facility] 2023-11-04 00:00:00 2023-11-04 11:57:09 Refill Barry Da Silva 1.2.840.114 350.1.13.70 8.2.7.2.686 [id number] [facility] Stanley [facility] 2023-10-07 08:05:00 2023-10-07 10:11:00 Outpatient OLIVER PAIGE [facility] OPH [id number] [facility] 2023-10-07 08:05:00 2023-10-07 10:11:00 Hospital Encounter Oliver Stewart [facility] 1.2.840.114 350.1.13.10 4.2.7.2.[id number] [facility] 2023-10-07 09:00:00 2023-10-07 09:33:00 Surgery Oliver Stewart [facility] 1.2.840.114 350.1.13.10 4.2.7.2.[id number] [facility] 2023-09-11 11:45:00 2023-09-11 11:45:00 Outpatient MHIE MHIE [id number] [facility] hou [facility] 2023-09-09 11:30:00 2023-09-09 11:30:00 Outpatient MHIE MHIE [id number] [facility] 2023-07-22 00:00:00 2023-07-22 00:00:00 Transition of Care Eliz [place] 1.2.840.114 350.1.13.10 4.2.7.2.[id number] [facility] 2023-07-17 03:53:00 2023-07-21 15:45:00 Hospital Encounter Tahir Benavidez, Karol Zamorano, [facility] 1..840.114 350.1.13.10 4.2.7.2.[id number] [facility] 2023-07-17 03:53:00 2023-07-21 15:45:00 Inpatient X [facility] [id number] [facility] 2023-07-08 00:04:28 2023-07-09 00:04:28 Between Visit [facility] [place] [id number] [facility] 2023-05-07 17:45:00 2023-05-08 05:59:59 Outpatient [facility] [place] [id number] Kaylynnrosa ameya Stanley 2023-01-07 16:45:00 2023-01-08 04:59:59 Outpatient [facility] [place] [id number] Kaylynnrosa ameya Stanley 2022-12-11 13:38:48 2022-12-12 13:38:48 Between Visit [facility] [place] [id number] Kaylynnrosa ameya Stanley 2022-10-17 15:45:00 2022-10-18 04:59:59 Outpatient [facility] [place] [id number] [facility] Stanley 2022-06-12 16:45:00 2022-06-13 05:59:59 Outpatient [facility] [place] [id number] Abbey hou [facility] 2022-03-12 16:00:00 2022-03-13 04:59:59 Outpatient nullFlavo r [facility] [place] [id number] [facility] hou [facility] 2021-12-10 16:00:00 2021-12-11 04:59:59 Outpatient nullFlavo r [facility] [place] [id number] [facility] hou [facility] 2021-06-11 17:30:00 2021-06-12 05:59:59 Outpatient nullFlavo r [facility] [place] [id number] [facility] hou [facility] 2021-03-08 15:15:00 2021-03-09 04:59:59 Outpatient nullFlavo r [facility] [place] [id number] [facility] hou [facility] 2020-12-06 15:45:00 2020-12-07 04:59:59 Outpatient nullFlavo r [facility] [place] [id number] [facility] hou [facility] 2020-09-11 13:45:37 2020-09-13 04:59:59 Outside Medical Records nullFlavo r [facility] [place] [id number] [facility] hou [facility] 2020-09-06 16:00:00 2020-09-07 04:59:59 Outpatient nullFlavo r [facility] [place] [id number] [facility] hou [facility] 2020-06-29 17:36:41 2020-07-01 05:59:59 Outside Medical Records nullFlavo r [facility] [place] [id number] [facility] hou [facility] 2020-06-08 16:45:00 2020-06-09 05:59:59 Outpatient nullFlavo r [facility] [place] [id number] Kaylynnrosa ameya Stanley 2020-02-08 15:45:00 2020-02-09 04:59:59 Outpatient nullFlavo r [facility] [place] [id number] Kaylynnrosa ameya Stanley 2020-02-08 15:45:00 2020-02-08 15:45:00 Ambulatory Pre-Reg nullFlavo r [facility] [place] [id number] Kaylynnrosa hou Jaden 2019-11-04 15:30:00 2019-11-05 04:59:59 Outpatient nullFlavo r [facility] [place] [id number] Kaylynnrosa hou Jaden 2019-07-15 16:30:00 2019-07-16 05:59:59 Outpatient nullFlavo r [facility] [place] [id number] Kaylynnrosa ameya Stanley 2019-06-08 16:30:00 2019-06-09 05:59:59 Outpatient nullFlavo r [facility] [place] [id number] Kaylynnrosa ameya Stanley 2019-03-09 15:45:00 2019-03-10 04:59:59 Outpatient nullFlavo r [facility] [place] [id number] Kaylynnrosa ameya Stanley 2019-03-08 14:45:00 2019-03-08 14:45:00 Ambulatory Pre-Reg nullFlavo r [facility] [place] [id number] Kaylynnrosa ameya Stanley 2018-12-07 14:15:00 2018-12-08 04:59:59 Outpatient nullFlavo r [facility] [place] [id number] Kaylynnrosa ameya Stanley 2018-11-05 15:45:00 2018-11-05 15:45:00 Ambulatory Pre-Reg nullFlavo r [facility] [place] [id number] Kaylynnrosa ameya Stanley 2018-09-24 15:30:00 2018-09-25 04:59:59 Outpatient nullFlavo r [facility] [place] [id number] Kaylynnrosa ameya Stanley 2018-05-28 17:00:00 2018-05-29 05:59:59 Outpatient nullFlavo r [facility] [place] [id number] Abbey Stanley 2018-04-19 18:05:00 2018-04-21 05:59:59 Phone Message nullFlavo r [facility] [place] [id number] Abbey Stanley 2018-02-02 11:00:00 2018-02-02 11:00:00 Outpatient MHIE MIKE [id number] Abbey Stanley 2017-12-01 11:00:00 2017-12-01 11:00:00 Outpatient MHIE MIKE [id number] Abbey Stanley 2017-11-10 11:00:00 2017-11-10 11:00:00 [id number] Abbey Stanley Results Test Description Test Time Test Comments Results Result Co mments Source [facility] GLUCOSE (AUTOMATED)2023-10-07 13:14:36* Test Item Value Reference Range Interpretation Comme nts POCT GLU (test code = 7282985550) 140 mg/dL 70-110 H Lab Interpretation (test cod e = 76454-5) Abnormal [facility] GLUCOSE (AUTOMATED)2023-07-21 18:35:19* Test Item Value Reference Range Interpretation Comme nts POCT GLU (test code = 7871839026) 230 mg/dL 70-110 H Lab Interpretation (test cod e = 81805-4) Abnormal [facility] GLUCOSE (AUTOMATED)2023-07-21 14:24:38* Test Item Value Reference Range Interpretation Comme nts POCT GLU (test code = 6541715644) 168 mg/dL 70-110 H Lab Interpretation (test cod e = 61114-0) Abnormal [facility] GLUCOSE (AUTOMATED)2023-07-21 02:44:18* Test Item Value Reference Range Interpretation Comme nts POCT GLU (test code = 1223316467) 40 mg/dL 70-110 LL Notified Provide r Lab Interpretation (test code = 63480-3) Abnormal [facility] GLUCOSE (AUTOMATED)2023-07-21 00:34:44* Test Item Value Reference Range Interpretation Comme nts POCT GLU (test code = 1619388468) 232 mg/dL 70-110 H Lab Interpretation (test cod e = 22346-0) Abnormal [facility] THORAX W [id number] 19:43:56 PROCEDURE: CT CHEST WITH CONTRAST - CHEST PROTOCOL CLINICAL INDICATION: DM2, HTN, HLD?who presents for?evaluation forshortness of breath as a transfer from [place].?Last night, the patientnoticed sudden onset shortness of breath Comparison: ?Chest x-ray 07/17/2023. TECHNIQUE: Volumetric images of the chest were acquired (from lung apicesto bases) following administration of iodine contrast. Images werereconstructed at 2.5 mm slice thickness. MIP axial images, coronal andsagittal reformats were also submitted for interpretation. FINDINGS: LUNGS AND PLEURA: The lungs are hyperinflated. Severe centrilobular andparaseptal emphysema/diffuse bronchial wall thickening and numerous foci ofperipheral airway mucoid impaction. Moderate nodular pleuroparenchymalscarring. The patient has innumerable perivascular areas of nodularity which aremostly subcentimeter but reach diameters up to at least 12 m m.Student Liaison Officer examples captured by the artificial intelligence software asfollows: Automated ROIs generated by [employer] CT on 2023-07-20. Calculated Lung Volumes: ?Right, 2.8 L; Left, 2.4 L. Reference lung nodules are detailed below (average diameter): Nodule 1: 7.5 mm, QUAN, Solid (series 4, image 53).Nodule 2: 9.4 mm, RUL, Solid (series 4, image 70).Nodule 3: 12 mm, RUL, Solid (series 4, image 79).Nodule 4: 6.7 mm, RLL, Solid (series 4, image 90).Nodule 5: 6.8 mm, RLL, Solid (series 4, image 120). There may be additional small nodules present, but they do not change thediagnostic recommendations of this report. LYMPH NODES: There prominent lymph nodes in the subaortic station up to 10mm. Calcified granulomas in the left hilum. Lymph nodes in the left hilumare at least 13 mm. Right hilar nodes are about 11 mm. Additional bilateralmediastinal nodes are under 1 cm MEDIASTINUM AND LOWER NECK: No central airway lesions are detected. Theesophagus is within normal limits. The included thyroid gland appearsnormal. HEART AND GREAT VESSELS: The heart is normal in size. No pericardialabnormalities are identified. The RV to LV is normal. The thoracic aorta is normal in caliber with moderate atheroscleroticplaque including the arch and intra-abdominal branches, withoutflow-limiting stenotic lesions.. No critical ostial stenosis of the aorticarch vessels or severe luminal narrowing seen. Moderate atherosclerotic calcifications of the coronary vessels. The pulmonary trunk is normal incaliber. VISUALIZED UPPER ABDOMEN: The liver is mildly enlarged. Prominent portalvein measuring about 1.7 cm. Diffuse bilateral adrenal enlargement withattenuation as low as -2.5 HU on the right and 5 Hounsfield units on theleft. Subtle lobulations of the kidneys. OSSEOUS STRUCTURES AND SOFT TISSUES: Spondylosis especially of the midthoracic segments manifested by endplate sclerosis, Schmorl's nodes,marginal osteophytes and disc height loss. Partially imaged cervical fusionplate. [facility] GLUCOSE (AUTOMATED)2023-07-20 19:01:13* Test Item Value Reference Range Interpretation Comme nts POCT GLU (test code = 0306770445) 99 mg/dL 70-110 Lab Interpretation (test cod e = 16062-8) Normal [facility] GLUCOSE (AUTOMATED)2023-07-20 18:47:45* Test Item Value Reference Range Interpretation Comme nts POCT GLU (test code = 5683676275) 88 mg/dL 70-110 Lab Interpretation (test cod e = 55917-9) Normal [facility] GLUCOSE (AUTOMATED)2023-07-20 15:06:12* Test Item Value Reference Range Interpretation Comme nts POCT GLU (test code = 8741139411) 82 mg/dL 70-110 Lab Interpretation (test cod e = 08558-5) Normal [facility] GLUCOSE (AUTOMATED)2023-07-19 15:23:46* Test Item Value Reference Range Interpretation Comme nts POCT GLU (test code = 8370899492) 86 mg/dL 70-110 Lab Interpretation (test cod e = 52362-4) Normal [facility] GLUCOSE (AUTOMATED)2023-07-19 02:44:11* Test Item Value Reference Range Interpretation Comme nts POCT GLU (test code = 7965881203) 205 mg/dL 70-110 H Lab Interpretation (test cod e = 01091-5) Abnormal [facility] GLUCOSE (AUTOMATED)2023-07-18 18:23:12* Test Item Value Reference Range Interpretation Comme nts POCT GLU (test code = 0286188396) 68 mg/dL 70-110 L Lab Interpretation (test cod e = 83208-8) Abnormal [facility] GLUCOSE (AUTOMATED)2023-07-18 02:16:15* Test Item Value Reference Range Interpretation Comme nts POCT GLU (test code = 6852405938) 127 mg/dL 70-110 H Lab Interpretation (test cod e = 16154-0) [facility]23-07-17 22:28:59* Test Item Value Reference Range Interpretation Comme nts Height (test code = 6957174256) 64 in Weight (test code = 7625459225) 122 lbs Systolic BP (test code = 2213082590) 169 mmHg Diastolic BP (test code = 4967263361) 75 mmHg Heart Rate (test code = 9676509285) 92 bpm BSA (test code = 7967414362) 1.59 m2 Ao root diam (test code = 1755227618) 2.90 cm Aortic root (test code = 8513299198) 2.9 cm Ao root annulus (test code = 6238976897) 2.9 cm LA size (test code = 8837723509) 3.7 cm LVOT diameter (test code = 1037488899) 1.91 cm LVOT area (test code = 4055465384) 2.90 cm2 TR Peak Junior (test code = 7359619653) 288.1 cm/s Triscuspid Valve Regurgitation Peak Gradient (test code = 2100642551) 33.2 mmHg LVIDS (test code = 7607321809) 2.70 cm Left Ventricular End Systolic Volume by Teichholz Method (test code = 2728301) 27.5 mL E wave decelartion time (test code = 5258861746) 0.13 s MV Peak E Junior (test code = 3784474397) 59.6 cm/s MV Peak A Junior (test code = 3844747336) 138.9 cm/s E/A ratio (test code = 6012998456) 0.43 ratio Tapse (test code = 3644882205) 1.96 cm LVOT stroke volume (test code = 3950800024) 75.00 cm3 LVOT peak junior (test code = 1826773735) 135.1 cm/s LVOT mn grad (test code = 1360290955) 3.8 mmHg AV LVOT peak gradient (test code = 6916378046) 7.3 mmHg LVOT peak VTI (test code = 1000538398) 26.0 cm LV V1 mean (test code = 6504158128) 92.40 cm/s Aortic valve mean velocity (test code = 1314924715) 122.0 cm/s Ao peak junior (test code = 4539341337) 183.5 cm/s Ao VTI (test code = 9645806514) 35.6 cm AV area by cont VTI (test code = 1204762095) 2.1 cm2 AV area peak junior (test code = 9656568324) 2.1 cm2 Ao max PG (test code = 6863737157) 13.50 mm[Hg] AV peak gradient (test code = 2391729829) 13.5 mmHg AV valve area (test code = 3324328685) 2.10 cm2 AV mean gradient (test code = 9236695304) 6.7 mmHg LAV(MOD-sp2) (test code = 6816734989) 53.60 mL LA Volume Index (BP) (test code = 1382024205) 22.9 mL/m2 LA volume (BP) (test code = 6873352870) 36.3 mL LAV(MOD-sp4) (test code = 1505377623) 21.10 mL LVIDD (test code = 9262648359) 3.70 cm Left Ventricular End Diastolic Volume by Teichholz Method (test code = 2880613) 56.4 mL IVS (test code = 5600765857) 1.00 cm Interventricular Septum Diastolic Thickness by 2D (test code = 6885929) 1.00 cm LVPWD (test code = 5856043607) 0.98 cm PW (test code = 5614074542) 0.98 cm 0.6-1.1 EF(Teich) (test code = 9317490345) 51.30 % FS (test code = 0772043197) 26 % EF - 2D (test code = 06170250) 51.30 % A4C EF (test code = 5068905406) 54.60 % EF(sp4-el) (test code = 6140058421) 58.70 % SV(MOD-sp4) (test code = 5304755226) 56.50 mL SV(sp4-el) (test code = 4132602450) 63.20 mL LV Diastolic Volume (BP) (test code = 3244157466) 89.6 mL A2C EF (test code = 9210412464) 57.00 % EF(MOD-bp) (test code = 6876924959) 56.90 % EF(sp2-el) (test code = 8156086993) 58.20 % LV Systolic Volume (BP) (test code = 5567940409) 38.6 mL SV(MOD-bp) (test code = 1131614474) 51.00 mL SV(MOD-sp2) (test code = 0122341388) 42.50 mL EF (test code = 8034570741) 57 Left Ventricular Stroke Volume by 2-D Biplane-MOD (test code = 8810041) 51.0 mL LV Diastolic Volume Index (BP) (test code = 7880896770) 56.4 mL/m2 LV Systolic Volume Index (BP) (test code = 1787532272) 24.3 mL/m2 Radiology Study observation (narrative) (test code = 91161-2) BRADLEY (test code = BRADLEY) ?Left?Ventricle: Left ventricle size is normal. Normal wall thickness. See diagram for wall motion findings. Low normal systolic function with a visually estimated EF of 50 - 55%. Indeterminate diastolic function. ?Right?Ventricle: Right ventricle size is normal. Normal systolic function. ?Tricuspid?Valve: Mild transvalvular regurgitation. Right ventricular systolic pressure is 35-40 mmHg. ?Aorta: Normal sized aortic root. ?Pericardium: No pericardial effusion. Remy Mane MD Left VentricleLeft ventricle size is normal. Normal wall thickness. See diagram for wall motion findings. Low normal systolic function with a visually estimated EF of 50 - 55%. Indeterminate diastolic function.Right VentricleRight ventricle size is normal. Normal systolic function.Left AtriumLeft atrium size is normal.Right AtriumRight atrium size is normal.IVC/SVCIVC diameter is less than or equal to 21 mm and decreases greater than 50% during inspiration; therefore the estimated right atrial pressure is normal (~0-5 mmHg).Mitral ValveMitral valve structure is normal. Mildly thickened leaflets. Mild mitral annular calcification.Tricuspi d ValveTricuspid valve structure is normal. Mild transvalvular regurgitation. Right ventricular systolic pressure is 35-40 mmHg.Aortic ValveTricuspid. Normal excursion of the aortic valve leaflets. No hemodynamically significant .Pulmonic ValveNot well visualized.Ascending AortaNormal sized aortic root.PericardiumThe pericardium is normal. No pericardial effusion.Study DetailsStudy quality was adequate. A complete echocardiogram was performed using 2D, color flow Doppler and spectral Doppler. The apical, parasternal and subcostal views were obtained. 5 mL of Lumason ultrasound enhancing agent used.Wall Scoring BaselineScore Index: 1.35The following segments are hypokinetic: basal anteroseptal, basal inferoseptal, basal inferior, mid anteroseptal, mid inferoseptal and mid inferior.All other segments are normal. [facility]23-[facility]-17 18:09:23* Test Item Value Reference Range Interpretation [facility] POCT GLU (test code = 0539527417) 177 mg/dL 70-110 H Lab Interpretation (test cod e = 88056-3) Abnormal [facility] CenterCT HEAD WO [id number] 15:56:51CT HEAD WO CONTRAST HISTORY: Mental status change, unknown cause COMPARISON: None TECHNIQUE: Contiguous axial imaging to the base of skull was obtained with2.5 mm slices without intravenous contrast.5 mm axial, coronal, andsagittal reformats were obtained. FINDINGS: The ventricles and cerebral sulci are normal in caliber and configuration.No hydrocephalus, midline shift or pathological extra-axial fluidcollection is present. The basal cisterns are unremarkable. There is no acute intracranial hemorrhage or significant mass effect. Noparenchymal attenuation abnormality. Remote left basal ganglia lacunarinfarct. The mcnulty- white matter differentiation is preserved. The mastoid air cells and paranasal air sinuses are clear. The calvariumand central skull base are unremarkable. Ectopic teeth projecting over thebilateral maxillary sinuses.[facility] CenterProthrombin Time / [id number] 12:29:36* Test Item Value Reference Range Interpretation [facility] PROTIME PATIENT (test code = 5964-2) 12.2 10.1-12.6 INR (test code = 6301-6) 1.0 Normal INR <1.1; Warfarin Therapeutic range 2.0 to 3.0 or 2.5 to 3.5, depending upon the indications. Lab Interpretation (test code = 09004-4) Normal [facility]eraPTT2024-02-16 12:29:36* Test Item Value Reference Range Interpretation [facility] APTT Patient (test code = 3173-2) 40 26-36 H BRADLEY (test code = BRADLEY) The [facility] patient population mean normal value for aPTT is 30 seconds. Lab Interpretation (test code = 88000-1) Abnormal [facility] CenterXR CHEST 1 [id number] 11:33:15ORDERING PHYSICIAN: PAUL BENAVIDEZ CLINICAL HISTORY: Shortness of breath TECHNIQUE: Frontal view of chest COMPARISON: None available. FINDINGS: The cardiac silhouette is mildly enlarged. ?Lungs are clear. Osseous structures are normal. [facility] CenterTROPONIN [id number] 10:51:06* Test Item Value Reference Range Interpretation Comme nts TROPONIN I (test code = 5297367946) 0.220 ng/mL <=0.034 H BRADLEY (test code = BRADLEY) Reference (Normal) Range (defined by the 99th percentile reference limit): <= 0.034 ng/mL Note: Cardiac troponin begins to rise 3-4 hours after the onset of ischemia. Repeat in 4-6 hours if the sample was drawn within 3-4 hours of the onset of the symptom and found normal. Diagnosis of myocardial injury is made with acute changes in cTn concentrations with at least one serial sample above the 99th percentile upper reference limit (URL), taken together with the patient's clinical presentation. Biotin has been reported to cause a negative bias, interpret results relative to patient's use of biotin. Lab Interpretation (test code = 45146-5) Abnormal [facility] CenterN-TERMINAL WYS-[id number] 10:48:28* Test Item Value Reference Range Interpretation Comme [facility] NT-proBNP (test code = 66415-3) 898 pg/mL <=125 BRADLEY (test code = BRADLEY) Result Indeterminate-Consid er causes of NT-proBNP elevation other than Heart failure such as acute coronary syndrome, pulmonary embolism, pulmonary hypertension, sepsis, stroke, and renal dysfunction. Lab Interpretation (test code = 22464-7) Abnormal [facility] CenterETHANOL2024-02-16 10:43:23 ALCOHOL<10mg/dL07/17/2023 4:43 [facility]10 Euxmsrby16-525 Toxic>100 Depression of [employer]>400 Fatalities ReportedUnBaptist Medical CenterCOMP. METABOLIC PANEL (33232)2023-07-17 10:40:27* Test Item Value Reference Range Interpretation Comme nts NA (test code = 1636015867) 134 mmol/L 135-145 L K (test code = 4354025572) 3.3 mmol/L 3.5-5.0 L CL (test code = 4410625080) 97 mmol/L 98-108 L CO2 TOTAL (test code = 7156271218) 30 mmol/L 23-31 AGAP (test code = 5624263123) 7 2-16 BUN (test code = 6023097455) 6 mg/dL 7-23 L GLUCOSE (test code = 3274838143) 126 mg/dL 70-110 H CREATININE (test code = 2160-0) 0.39 mg/dL 0.50-1.04 L TOTAL BILI (test code = 0012578790) 0.5 mg/dL 0.1-1.1 CALCIUM (test code = 7228361871) 8.4 mg/dL 8.6-10.6 L T PROTEIN (test code = 6898657630) 8.0 g/dL 6.3-8.2 ALBUMIN (test code = 9593698190) 4.5 g/dL 3.5-5.0 ALK PHOS (test code = 3204427612) 154 U/L 34-122 H ALTv (test code = 1742-6) 22 U/L 5-35 AST(SGOT) (test code = 0422715499) 38 U/L 13-40 eGFR (test code = 99236-4) 103.3 mL/min/1.73m2 CKD-EPI eGFR (2020). Assuming creatinine has been stable day-to-day for at least three months, the eGFR indicates Category G1 (>= 90 mL/min/1.73 m2) Lab Interpretation (test code = 50116-5) Abnormal [facility] WITH [id number] 10:18:44* Test Item Value Reference Range Interpretation Comme nts WBC (test code = 6690-2) 5.36 4.30-11.10 RBC (test code = 789-8) 5.56 3.93-5.25 H HGB (test code = 718-7) 16.6 g/dL 11.6-15.0 H HCT (test code = 4544-3) 48.7 % 35.7-45.2 H MCV (test code = 787-2) 87.6 fL 80.6-95.5 MCH (test code = 785-6) 29.9 pg 25.9-32.8 MCHC (test code = 786-4) 34.1 g/dL 31.6-35.1 RDW-SD (test code = 61574-0) 40.6 fL 39.0-49.9 RDW-CV (test code = 788-0) 12.8 % 12.0-15.5 PLT (test code = 777-3) 207 166-358 MPV (test code = 18923-1) 10.5 fL 9.5-12.9 NRBC/100 WBC (test code = 5170140472) 0.0 0.0-10.0 NRBC x10^3 (test code = 8581839757) See_Comment [Automated messa ge] The system which generated this result transmitted reference range: 10*3/?L. The reference range was not used to interpret this result as normal/abnormal. GRAN MAT (NEUT) % (test code = 770-8) 50.9 % IMM GRAN % (test code = 0872642093) 0.40 % LYMPH % (test code = 736-9) 23.9 % MONO % (test code = 5905-5) 20.3 % EOS % (test code = 713-8) 3.4 % BASO % (test code = 706-2) 1.1 % GRAN MAT x10^3(ANC) (test code = 8638997110) 2.73 10*3/uL 1.88-7.09 IMM GRAN x10^3 (test code = 9330298501) 0.00-0.06 LYMPH x10^3 (test code = 731-0) 1.28 10*3/uL 1.32-3.29 L MONO x10^3 (test code = 742-7) 1.09 10*3/uL 0.33-0.92 H EOS x10^3 (test code = 711-2) 0.18 10*3/uL 0.03-0.39 BASO x10^3 (test code = 704-7) 0.06 10*3/uL 0.01-0.07 Lab Interpretation (test code = 20412-6) [facility]normal [facility] (AUT[facility]ATED)2023-07-17 10:03:07* Test Item Value Reference Range Interpretation Comme nts POCT GLU (test code = 9009941274) 122 mg/dL 70-110 H Lab Interpretation (test cod e = 47656-6) Abnormal [facility] CenterCritical [id number] 09:49:00Tahir Benavidez MD ? ? 07/17/2023 ?7:06 PMCritical Care Performed by: Tahir Benavidez MDAuthorizedby: Tahir Benavidez MD ?Critical care provider statement: ?Critical care time (minutes): ?60 ?Critical care time was exclusive of: ?Separately billable procedures and treating other patients and teaching time ?Critical care was necessary to treat or prevent imminent or life-threatening deterioration of the following conditions: ?Cardiac failure and respiratory failure ?Critical care was time spent personally by me on the following activities: ?Development of treatment plan with patient or surrogate, evaluation of patient's response to treatment, examination of patient, obtaining history frompatient or surrogate, ordering and performing treatments and interventions, ordering and review of l aboratory studies, ordering and review of radiographic studies, pulse oximetry, re-evaluation of patient's condition and review of old charts ?Care discussed with: admitting provider ?Comments: ? Dueto a high probability of clinically significant, life threatening deterioration, the patient required my highest level of preparedness to intervene emergently and I personally spent this critical care time directly and personally managing the patient. This critical care time included obtaining a history; examining the patient; pulse oximetry; ordering and review of studies; arranging urgent treatment with development of a management plan; evaluation of patient's response to treatment; frequent r eassessment; and, discussions with other providers.This critical care time was performed to assess and manage the high probability of imminent, life- threatening deterioration that could result in multi-organ failure. It was exclusive of separately billable procedures and treating other patients. [facility] CenterCHEM [id number] 16:51:00* Test Item Value Reference Range Interpretation Comme nts ALANINE AMINOTRANSFERASE (te st code = ALANINE AMINOTRANSFERASE) 14 6-29 [facility] CenterFembpvfFXIUCVJNJZ5595-45-84 16:51:00* Test Item Value Reference Range Interpretation Comme nts WBC X 10x3 (test code = WBC X 10x3) 6.3 3.8-10.8 [place] [id number] 16:51:00* Test Item Value Reference Range Interpretation Comme nts Primidone Lvl (test code = P rimidone Lvl) 12.7 5.0-12.0 [facility] [id number] 16:39:00* Test Item Value Reference Range Interpretation Comme nts Glucose Lvl (test code = Glucose Lvl) 142 65-139 [facility]XwjowjpVRFKZMCYAH2159-13-85 16:39:00* Test Item Value Reference Range Interpretation Comme nts WBC X 10x3 (test code = WBC X 10x3) 7.3 3.8-10.[address] [facility]OHK[facility]PKPU9932-44-85 16:39:00* Test Item Value Reference Range Interpretation Comme nts Primidone Lvl (test code = P rimidone Lvl) 9.7 5.0-12.0 [facility] Consult Notes Date/Time Note Provider Source 2023-07-20 16:53:31 Associated Order(s): CONSULT ADULT PHYSICAL THERAPY Patient agreeable to working with physical therapy. Patient met semi reclined in bed. Recommend nursing staff utilize supervision with RW to safely assist patient with mobility out of the bed or chair. PHYSICAL THERAPY EVALUATION Consult received, chart reviewed and evaluation complete this date. Patient is referred to PT for evaluation and treatment. Patient is a 78 year old female who presents to hospital for Acute respiratory failure with hypoxia [J96.01] . Discharge Recommendations: Therapy Needs and Potential: Patient would benefit from continued physical therapy services to address: decline in bed mobility decline in transfers decline in gait and/or balance decreased strength decreased endurance Patient demonstrates good potential to improve and meet therapy goals with further physical therapy services. Patient appears motivated to improve their functional mobility and return to their previous level of function. Patient demonstrates ability to tolerate atleast 30-60 minutes of physical therapy with active participation. Challenges to Home Transition: increased risk of falls decreased safety awareness Equipment recommendations: rolling walker at this time and will update as patient progress with therapy Current Functional Status and/or Treatment: AM-PAC 6 Clicks (Raw Score 0=Dependent, 24=Independent; Low function Raw Score 0= Dependent, 32=Independent): Raw Score - Basic Mobility : 17 T-Scale Score - Basic Mobility : 39.67 Bed Mobility: Supine-sit: Supervision , sitting at the edge of bed: supervision, sit to supine: supervision. Transfers: Sit to stand: Supervision using Rolling Walker Stand to sit: Supervision using Rolling Walker with verbal cues for hand placement and technique. Transfer from commode to bed: supervision. Ambulation: Assisted patient with ambulation as follows: 45 feet using Rolling Walker and Supervision. With verbal cues for postural correction and gait pattern patient with kyphoscoliosis. Patient with flexed posture. Therapeutic exercise: instructed patient in the following: ankle pumps, heel slides, hip abduction/adduction, long arc quads 10x After session, patient semi reclined in bed. Call button provided. PLAN OF CARE: While in the hospital, PT will follow patient at least 2 times per week,once or twice a day, per patient's tolerance and needs. See below for complete details. Admit Date: 07/17/2023 Hospital Diagnosis:Acute respiratory failure with hypoxia [J96.01] PT Diagnosis: Difficulty walking and Weakness Weight Bearing Precaution: NA General Precautions: PPE used:Gloves and Surgical mask, General, Fall,oxygen: Nasal canula Bracing/Cast present or required:N/A PMH: Past Medical History: Diagnosis Date Diabetes mellitus Hyperlipidemia Hypertension OCD (obsessive compulsive disorder) Scoliosis PSH: Past Surgical History: Procedure Laterality Date TONSILLECTOMY age 16 TOTAL ABDOMINAL HYSTERECTOMY age 32 Prior Living Situation: lives with their spouse in a single story house with no stairs to enter DME: Wheel Chair Prior level of Mobility: community ambulation Suspected ischemic or hemorraghic stroke:No Subjective: patient states that she was independent prior to hospitalization Patient/Family Goals: to get better Patient/Family verbalizes understanding of condition: Yes PAIN: denies pain before and after session COMMUNICATION Primary Language: Dominican Able to Verbalize needs: Yes Vision:good; no issues reported Hearing:good; no issues reported ORIENTATION/COGNITION: Oriented to: person, place, date/time, and situation Awake: Yes Alert: Yes Dizzy: No Follows Commands: Yes 1-Step Yes Multi-Step Yes Inconsistent: No NEUROLOGICAL Light Touch: within functional limits bilateral LE Tone: normal BALANCE: Sitting: Static: Good Dynamic: Fair+ Standing: Static: Fair+ Dynamic: Fair RANGE OF MOTION: within functional limits bilateral LE, STRENGTH: 3+/5 (F+), bilateral LE except left foot : 0/5 dorsoflexion ENDURANCE: Fair, Nasal canula SKIN INTEGRITY: defer to nursing notes PROBLEM LIST: Decline in bed mobility, Decline in gait, Decline in transfers, Decreased strength, Decreased endurance, and Decreased balance ASSESSMENT: Patient is a 78 year old female seen secondary to the above listed diagnosis. Patient would benefit from continued PT to address the above listed deficits to maximize independence and safety with functional mobility. Rehabilitation Potential: fair Goals: The following goals are to maximize independence and safety with functional mobility to eventually return to prior living situation and prior functional status. Upon discharge, patient and/or family will demonstrate the followin. Supine-sit: Independent 2. Sit to stand: Independent using Rolling Walker Stand to sit: Independent using Rolling Walker 3. Independent with ambulation, Feet: 300 using least assistive device. 4. Demonstrate or verbalize understanding of home exercise program in order to continue with their rehab on their own. Treatment Plan: Gait training, Therapeutic exercise, Transfer training, Balance training, Bed mobility training, Equipment needs assessment, and Safety education, patient/caregiver education PATIENT EDUCATION: Patient provided with preferred teaching of verbal information on role of PT, plan of care. Shows readiness to learn. Verbal instruction teaching provided. Individual verbalizes understanding of teaching provided. Total Time Tx Codes in Minutes: 10 min Total Treatment Time in Minutes: 25 min Scott Prakash. JUAN Juarez, DPT,CMSR [facility] 2023-07-19 15:25:00 Associated Order(s): CONSULT ADULT OCCUPATIONAL THERAPY OT GENERAL EVALUATION Consult received via [employer], EMR reviewed and evaluation completed 07/19/23. Patient referred to occupational therapy for evaluation and treatment secondary to Acute respiratory failure. Positive for parainfluenza 4. Patient agreeable to participate in occupational therapy. Discharge Recommendations: Therapy Needs and Potential:- Patient would benefit from continued skilled occupational therapy services to address: Decline in basic activities of daily living, Decreased strength, and Decreased endurance - Patient exhibits limited activity tolerance. - Patient able to follow commands: 1-step Yes, Multi-step NT, Inconsistencies Yes Challenges to Home Transition:- Requires physical assistance for BADLS - Requires physical assistance for IADLS - Requires supervision or verbal cues for BADLS - Requires supervision or verbal cues for IADLS - Limited caregiver availability - Decreased safety awareness/judgement - Increased risk of falls Equipment Recommendations:Bedside commode Patient may benefit from Post Acute Occupational Therapy in a Home Health Setting. PLAN OF CARE: At least 3x/week Precautions: Weight bearing status: NA General: PPE Utilized: Gloves, Gown, N-95 Mask, and Goggles, Droplet, Fall, and O2 per NC Bracing: N/A Current Occupational Performance and/or Treatment: AM-PAC 6 Clicks (Raw Score 0=Dependent, 24=Independent; Low function Raw Score 0= Dependent, 32=Independent): Raw Score - Daily Activity: 23 T-Scale Score - Daily Activity: 51.12 Feeding: Independently able to feed self while semi reclined in bed. Grooming: Independent to perform simple grooming tasks( washing face) LB Dressing: Independent to don non skid socks Toilet Transfer: Minimal Assistance utilizing RW Functional Mobility: HOB elevated, sup -> sit EOB minimal assistance, sit <-> stand supervision with RW. Transfer bed<> BSC with MIN A utilizing RW . Patient able to tolerate sitting EOB for ~8 minutes with lose supervision. Standing at RW for ~~ 3 minutes with MIN A. Practiced weight shift and side stepping to position self to transition from standing at RW to sit EOB and transition from sitting EOB to semi reclined in bed. Patient/caregiver educated on:Adaptive equipment , ADL training, Deep breathing, Fall prevention, General strengthening, Role of OT, and Safety awareness Patient left semireclining in bed with call adams in reach. Spouse present. Please, see full evaluation below for more detail. OT EVALUATION: 78 year old female Admit date: 07/17/2023 Date of onset:07/17/2023 Admit Diagnosis: Acute respiratory failure with hypoxia [J96.01] OT Diagnosis: Impaired BADL independence, Impaired IADL independence, Weakness, Decreased endurance, and Impaired self-care mobility PMH: Past Medical History: Diagnosis Date Diabetes mellitus Hyperlipidemia Hypertension OCD (obsessive compulsive disorder) Scoliosis PSH: Past Surgical History: Procedure Laterality Date TONSILLECTOMY age 16 TOTAL ABDOMINAL HYSTERECTOMY age 32 PAIN: Pain Location: lower back Pain rating before treatment: 8, After treatment: 8 Pain Management: Nursing Notified, Decreased movement aides in some pain reduction, and Repositioning Provided OCCUPATIONAL ROLES/HOME ENVIRONMENT: Home environment: Lives with spouse, 22/12 supervision/assistance is available, and Single story home. Bathroom access: Yes Bathroom setup: Shower Occupation(s): Retired Function prior to admission: Household ambulation, Community ambulation, Independent with BADLs, and Independent with IADLs Suspected ischemic or hemorraghic stroke patient: No Equipment prior to admission: None PERFORMANCE SKILLS/FACTORS: UE Muscle Tone: bilateral WNL UE ROM: bilateral AROM WFL UE Strength: ABDELRAHMAN UE 4-/5 Hand dominance: right Dexterity/Coordination: bilateral Fine motor skills Impaired , bilateral Gross motor skills Intact , and bilateral Finger to nose Intact Endurance - Sitting: Good Standing: Fair Sitting Balance - Static: Good Dynamic: Good Standing: Balance - Static Fair Dynamic: Fair - Dizziness: No Skin Integrity: defer full skin assessment to nursing Sensation: bilateral Intact to light touch Oral Motor: WFL Communication: Able to verbalize needs Yes Other: N/A Vision: WFL Yes Other: N/A Hearing: good; no issues reported COGNITION: Orientation: person, place, date/time, and situation Follows Commands: 1-step Yes Multi-step NT Inconsistencies Yes Safety Awareness/Judgment: Fair PROBLEM LIST: Decreased independence with ADL, Decreased strength/endurance for functional activity, and Impaired safety awareness REHAB POTENTIAL/PROGNOSIS: good PATIENT/FAMILY GOALS: " to return home" TREATMENT/INTERVENTION PLAN: Patient/Caregiver Education, Equipment recommendations, Daily living activities, Therapeutic exercises, and Neuromuscular Re-Education GOAL(S): By discharge, patient will increase independence in daily living skills as follows: 1 Patient will perform toilet transfer with independence. 2 Patient will perform simulated bathing task with independence. 3 Patient will perform UB/LB dressing with independence. 4 Patient will increase endurance for functional activity as evidenced by ability to sustain 30 minutes of active participation. 5 Patient/caregiver will verbalize/demonstrate understanding/proficiency in the following home programs: Deep breathing, Fall prevention, and General strengthening PATIENT-FAMILY TEACHING Patient provided with preferred teaching of verbal information on ADL training, Deep breathing, Fall prevention, General strengthening, Role of OT, and Safety awareness. Shows readiness to learn. Verbal instruction teaching provided. Individual verbalizes understanding of teaching provided and needs reinforcement of teaching. T. Supervisor Body Assembly, OTR *This may not be patient's primary therapist. Please contact the Rehab Department at [phone] with questions. Total Timed Treatment Codes: 10 Min Total Treatment Time: 43 Min Patient Complexity Level High - An occupational therapy evaluation of high complexity was completed using the above tests and measures. The following information was obtained: An occupational profile and medical and therapy history, including review of medical and/or therapy records and extensive additional review of physical, cognitive, or psychosocial history related to current functional performance, Various standardized and non-standardized assessments were used to identify at least 5 or more performance deficits related to physical, cognitive, or psychosocial skills that result in activity limitations and/or participation restrictions, and Clinical decision-making is of high analytic complexity, which includes an analysis of the patient profile, analysis of data from comprehensive assessment(s), and consideration of multiple treatment options. Patient present with comorbidities that affect occupational performance. Significant modification of tasks or assistance (e.g., physical or verbal) with assessment(s) is necessary to enable patient to complete evaluation component. Jasso OT [facility] History and Physical Notes Date/Time Note Provider Source 2023-10-07 08:23:06 H&P Update H&P was reviewed and the patient was examined and there was no change in the patient's condition. [facility] 2023-07-17 09:20:57 AMY Willmas Admit H&P PCP: PATIENT DOES NOT HAVE A PCP Date of Service: 07/17/2023 CHIEF COMPLAINT: Shortness of breath and weakness HISTORY OF PRESENT ILLNESS Gabby López is a 78 year old female with a PMH of DM2, HTN, HLD who presents for evaluation for shortness of breath as a transfer from [place]. Last night, the patient noticed sudden onset shortness of breath when she was trying to fall asleep. She continued to lay in bed and eventually fell asleep. A few hours later, she woke up with worsening shortness of breath, which is when she asked her family to take her to the hospital. The patient denies cough, hemoptysis, or home oxygen requirement. She states she has had a sore throat for the last couple of weeks. She denies any chest pain, abdominal pain, nausea, or vomiting. Patient reports that she has a smoking hx of ~.5 packs of cigarettes per day for about 30 years but has since quit. On arrival to the [place] ED, the patient was satting at 78% on room air. WBC was 5.36 and Hgb was 16.6 with unremarkable electrolytes. UA with no evidence of infection. A CXR was ordered which demonstrated mildly hyperinflated lungs. EKG was showed T wave inversions in the inferior and lateral leads with Q waves in the anterior leads. Troponin was elevated to 0.220 and the patient had a normal Nt-proBNP. At this time, a COPD exacerbation was suspected as the underlying etiology for the patient's shortness of breath. ABG was ordered which showed pCO2 of 51 with bicarb of 28. The patient was started on duonebs, methylprednisolone, and oxygen and subsequently transferred to [facility] geriatrics in stable condition. Of note, patient denies ever being diagnosed with COPD. She have never used an inhaler or nebulizer. Past medical history: has a past medical history of Diabetes mellitus, Hyperlipidemia, Hypertension, and OCD (obsessive compulsive disorder). Past surgical history: Hysterectomy Social history: Patient has a 30-45 pack year history. Denies alcohol or recreational drug use. Family history: family history includes Coronary Heart Disease in her father; Heart in her mother. Allergies: No Known Allergies MEDICATIONS reviewed REVIEW OF SYSTEMS Per HPI PHYSICAL EXAMINATION Vitals: 07/17/23 0428 07/17/23 0500 07/17/23 0608 07/17/23 0718 BP: (!) 171/69 (!) 188/57 Pulse: 90 95 90 Resp: 18 16 20 19 Temp: TempSrc: SpO2: 99% 96% 94% 97% Weight: Height: General: alert and oriented x 4 (person, place, date/time, and situation); no apparent distress Lungs: clear to auscultation bilaterally Cardio: S1, S2 normal; no murmurs, rubs or gallops Abdomen: soft; non-tender; non-distended; normoactive bowel sounds Extremities: no clubbing, cyanosis, or edema LABS - reviewed pertinent labs as below: Reviewed. IMAGING - reviewed, pertinent results as below: Reviewed. EKG: NSTEMI with NSR 78 ASSESSMENT/PLAN Gabby López is a 78 year old female with PMH as listed above, admitted to the hospital with: Acute hypoxic and hypercapnic respiratory failure requiring supplemental O2 NSTEMI, likely type II C/f COPD vs other pulmonary process Hx tobacco use Elevated hb likely 2/2 hx tobacco use Hypokalemia Elevated alk phos Respiratory alkalosis with compensation Patient initially presented with hypoxemia and an ABG demonstrating respiratory alkalosis with metabolic compensation. CXR showed mildly hyperinflated lungs. Considering the patients significant smoking history, COPD with an acute exacerbation is suspected as the underlying etiology for this patient's dyspnea, but unable to confirm in the absence of PFT's. The patient does have several vasculopathic risk factors with elevated troponins on admission. While the PA is likely type II, the patient would benefit from further cardiac workup with TTE. Aditionally, infection and PE cannot be excluded so will obtain blood cultures and d dimer, respectively, to further evaluate. - Admit to [facility] - Admit labs - TTE - O2 per protocol - Respiratory panel, rapid strep - Telemetry - Blood cultures x2 - D dimer, consider CTPE if elevated - Duonebs Chronic stable conditions: Type 2 Diabetes mellitus with hyperglycemia Diabetic polyneuropathy Hypertension Hyperlipidemia Chronic Back pain Insomnia, unspecified GERD Generalized anxiety disorder - C/w home meds (increase home hydralazine 50mg from BID to TID) Pain ControlledTylenol, tramadol Prophylaxis: DVT- enoxaparin Stress Ulcer: Protonix Code Status: addressed: full code Alex Johnson 07/17/2023 9:21 AM I personally examined the patient on 07/17/23 and have verified the MS3 medical student documentation and/or findings, including the history, physical exam, and medical decision making. Additionally, I have personally performed or re-performed the physical exam and medical decision making activities of this patient's evaluation and management service. Lloyd Springer MD PGY-2, Internal Medicine Y MARKET CLERK Associated attestation - Karol Mobley MD - 07/19/2023 12:31 AM 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 After discussion with Dr Springer, Lloyd resident, I saw and examined the patient on July,. Furthermore, I personally discussed the subsequent workup/treatment recommendations. I actively participated in the decision-making process. Please see the resident's note for additional details. I agree with the student Alex Johnson MS3 note and the resident's note as written. [facility] - Health Notes Upcoming Encounters Date/Time Note Provider Source 2024-09-14 10:33:47 [facility] Maintenance Due Date Last Done Comments Bone Density Scan 1945 Medicare Annual Wellness (AWV) 1945 Diabetes: Foot Exam 1957 Diabetes: Retinopathy Screening 1957 DTaP/Tdap/Td Vaccines (1 - Tdap) 1966 Diabetes: Urine Protein Screening 1966 Zoster Vaccines (1 of 2) 1997 Respiratory Syncytial Virus (RSV) Adult Series (1 - 1-dose 75+ series) 2022 Diabetes: Hemoglobin A1C 01/15/2024 07/17/2023 Lipid Panel 07/18/2024 07/18/2023 Influenza Vaccine (Season Ended) 2025 Pneumococcal Vaccine: 50+ Ye ars (2 of 2 - PCV) 07/05/2025 07/05/2024 HIB Vaccines Aged Out No longer eligi ble based on patient's age to complete this topic HPV Vaccines Aged Out No longer eligi ble based on patient's age to complete this topic Hepatitis A Vaccines Aged Out No long er eligible based on patient's age to complete this topic Hepatitis B Vaccines Aged Out No long er eligible based on patient's age to complete this topic IPV Vaccines Aged Out No longer eligi ble based on patient's age to complete this topic Meningococcal Vaccine Aged Out No sumeet alonso eligible based on patient's age to complete this topic Rotavirus Vaccines Aged Out No longer eligible based on patient's age to complete this topic [id number] 10:33:47 [facility]Dvcaelj3869-40-03 18:31:53* [facility] HospitalXwmxwyo6743-41-35 18:31:53Upcoming Encounters Health Maintenance Due Date Last Done Comments Bone Density Scan 1945 Medicare Annual Wellness (AWV) 1945 Diabetes: Foot Exam 1957 Diabetes: Retinopathy Screening 1957 DTaP/Tdap/Td Vaccines (1 - Tdap) 1966 Diabetes: Urine Protein Screening 1966 Zoster Vaccines (1 of 2) 1997 Respiratory Syncytial Virus (RSV) or >=60 (1 - 1-dose 75+ series) 2022 Diabetes: Hemoglobin A1C 01/15/2024 07/17/2023 Lipid Panel 07/18/2024 07/18/2023 Influenza Vaccine (Season Ended) 2025 Pneumococcal Vaccine: 50+ Ye ars (2 of 2 - PCV) 07/05/2025 07/05/2024 HIB Vaccines Aged Out No longer eligi ble based on patient's age to complete this topic HPV Vaccines Aged Out No longer eligi ble based on patient's age to complete this topic Hepatitis A Vaccines Aged Out No long er eligible based on patient's age to complete this topic Hepatitis B Vaccines Aged Out No long er eligible based on patient's age to complete this topic IPV Vaccines Aged Out No longer eligi ble based on patient's age to complete this topic Meningococcal Vaccine Aged Out No sumeet alonso eligible based on patient's age to complete this topic Rotavirus Vaccines Aged Out No longer eligible based on patient's age to complete this topic [id number] 18:31:53 Diagnosis 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 Essential tremor Scoliosis, unspecified scoli osis type, unspecified spinal region [facility] [id number] 18:31:53 [place] [id number] 18:31:12* [facility] [id number] 18:31:12Upcoming Encounters Health Maintenance Due Date Last Done Comments Bone Density Scan 1945 Medicare Annual Wellness (AWV) 1947 Diabetes: Foot Exam 1957 Diabetes: Retinopathy Screening 1957 DTaP/Tdap/Td Vaccines (1 - Tdap) 1966 Diabetes: Urine Protein Screening 1966 Zoster Vaccines (1 of 2) 1997 Respiratory Syncytial Virus (RSV) or >=60 (1 - 1-dose 75+ series) 2022 Diabetes: Hemoglobin A1C 01/15/2024 07/17/2023 Lipid Panel 07/18/2024 07/18/2023 Influenza Vaccine (Season Ended) 2025 Pneumococcal Vaccine: 50+ Ye ars (2 of 2 - PCV) 07/05/2025 07/05/2024 HIB Vaccines Aged Out No longer eligi ble based on patient's age to complete this topic HPV Vaccines Aged Out No longer eligi ble based on patient's age to complete this topic Hepatitis A Vaccines Aged Out No long er eligible based on patient's age to complete this topic Hepatitis B Vaccines Aged Out No long er eligible based on patient's age to complete this topic IPV Vaccines Aged Out No longer eligi ble based on patient's age to complete this topic Meningococcal Vaccine Aged Out No sumeet alonso eligible based on patient's age to complete this topic Rotavirus Vaccines Aged Out No longer eligible based on patient's age to complete this topic [facility] HospitalRhkoosp5186-09-38 18:31:12 Diagnosis 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 [facility] pharmacy in [place] is still a good pharmacy for her. Rosa Reilly [facility]2025-03-18 17:51:29* [facility] [id number] 17:51:29* Barry aD Silva MD - 08/16/2024 3:15 PM CDT History of Present Illness Tremor Had an episode of hypoglycemia. Off Gabapentin on Requip. Tremor moderate today. On Klonopin and tramadol as well. Just on the tramadol 1 a day. No new problems otherwise Allergies as of 08/16/2024 (No Known Allergies) has a current medication list which includes the following prescription(s): amlodipine, celecoxib, clonazepam, clopidogrel, hydralazine, insulin glargine, insulin lispro, iron (ferrous sulfate), latanoprost, naloxone, olmesartan, pantoprazole, restasis, ropinirole, sertraline, simvastatin, sodium chloride, tramadol, and primidone. Vitals:08/16/24 1524 BP: (!) 121/59 Pulse: 87 Resp: 16 Temp: 36.8 ?C (98.2 ?F) SpO2: 94% Neurological Exam Mental Status Awake and alert. Speech is normal. Cranial NervesCN II: Visual acuity is normal. CN III, IV, : Extraocular movements intact bilaterally. Pupils equal round and reactive to light bilaterally. CN VII: Full and symmetric facial movement. CN IX, X: Palate elevates symmetrically CN XI: Shoulder shrug strength is normal. CN XII: Tongue midline without atrophy or fasciculations. MotorStrength is 5/5 throughout all four extremities. Moderate postural tremor. SensoryTemperature abnormality: Decreased distally. Vibration abnormality: Decreased distally. ReflexesDeep tendon reflexes: Suppressed but symmetric. Gait Ambulates with a rolling walker. Results for orders placed or performed in visit on 12/06/20 ALT Collection Time: 12/06/20 11:51 AM Result Value Ref Range ALT 14 6 - 29 unit/L AST Collection Time: 12/06/20 11:51 AM Result Value Ref Range AST 16 10 - 35 unit/L Complete Blood Count w/Diff and Platelet Collection Time: 12/06/20 11:51 AM Result Value Ref Range Basophils # 63 0 - 200 Cells/uL MCH 29.9 27.0 - 33.0 pg Hgb 16.2 (H) 11.7 - 15.5 g/dL Segs % 58.5 % MCHC 33.9 32.0 - 36.0 g/dL Lymphs % 29.2 % RDW 12.7 11.0 - 15.0 % Monocytes 8.6 % Plt Count 252 140 - 400 K/ul Eos % 2.7 % Basos % 1.0 % MPV 12.5 7.5 - 12.5 fL Hct 47.8 (H) 35.0 - 45.0 % WBC 6.3 3.8 - 10.8 K/ul Segs # 3686 1500 - 7800 Cells/uL RBC 5.42 (H) 3.80 - 5.10 M/CMM Lymphocytes # 1840 850 - 3900 Cells/uL Monocytes # 542 200 - 950 Cells/uL MCV 88.2 80.0 - 100.0 fL Eosinophils # 170 15 - 500 Cells/uL Primidone Level Collection Time: 12/06/20 11:51 AM Result Value Ref Range Phenobarb Lvl <5.0 (L) 15.0 - 40.0 mg/L Primidone Lvl 12.7 (H) 5.0 - 12.0 mg/L No MRI head results found for the past 12 months Assessment & PlanDiagnoses and all orders for this visit: Essential tremor Other orders - primidone (Mysoline) 250 MG tablet; Take 1 tablet by mouth in the morning and 1 tablet in the evening. Patient is on maximum tolerated dosing. Tremor is still moderate to severe. No medication changes planned. I am the continuing focal point for needed health care services and medicalcare services that are part of ongoing care related to this patient's single, serious condition or complex condition. [facility] HospitalVfuytdq2463-01-66 17:51:29Upcoming Encounters Health Maintenance Due Date Last Done Comments Bone Density Scan 1945 Medicare Annual Wellness (AWV) 1945 Diabetes: Foot Exam 1957 Diabetes: Retinopathy Screening 1957 DTaP/Tdap/Td Vaccines (1 - Tdap) 1966 Diabetes: Urine Protein Screening 1966 Zoster Vaccines (1 of 2) 1997 Respiratory Syncytial Virus (RSV) or >=60 (1 - 1-dose 75+ series) 2022 Diabetes: Hemoglobin A1C 01/15/2024 07/17/2023 Influenza Vaccine (#1) 2024 Lipid Panel 07/18/2024 07/18/2023 Pneumococcal Vaccine: 50+ Ye ars (2 of 2 - PCV) 07/05/2025 07/05/2024 HIB Vaccines Aged Out No longer eligi ble based on patient's age to complete this topic HPV Vaccines Aged Out No longer eligi ble based on patient's age to complete this topic Hepatitis A Vaccines Aged Out No long er eligible based on patient's age to complete this topic Hepatitis B Vaccines Aged Out No long er eligible based on patient's age to complete this topic IPV Vaccines Aged Out No longer eligi ble based on patient's age to complete this topic Meningococcal Vaccine Aged Out No sumeet alonso eligible based on patient's age to complete this topic Rotavirus Vaccines Aged Out No longer eligible based on patient's age to complete this topic [facility] HospitalZxscgpj3786-08-28 17:51:29 Diagnosis Essential tremor - Primary Lumbar radiculopathy Thoracic or lumbosacral neuritis or radiculitis, unspecified [facility] HospitalEhqfveh2935-72-79 17:51:29 [place] [id number] 17:51:29* [facility] [id number] 17:51:29* Barry Da Silva MD - 08/16/2024 3:15 PM CDT History of Present Illness Tremor Had an episode of hypoglycemia. Off Gabapentin on Requip. Tremor moderate today. On Klonopin and tramadol as well. Just on the tramadol 1 a day. No new problems otherwise Allergies as of 08/16/2024 (No Known Allergies) has a current medication list which includes the following prescription(s): amlodipine, celecoxib, clonazepam, clopidogrel, hydralazine, insulin glargine, insulin lispro, iron (ferrous sulfate), latanoprost, naloxone, olmesartan, pantoprazole, restasis, ropinirole, sertraline, simvastatin, sodium chloride, tramadol, and primidone. Vitals:08/16/24 1524 BP: (!) 121/59 Pulse: 87 Resp: 16 Temp: 36.8 ?C (98.2 ?F) SpO2: 94% Neurological Exam Mental Status Awake and alert. Speech is normal. Cranial NervesCN II: Visual acuity is normal. CN III, IV, : Extraocular movements intact bilaterally. Pupils equal round and reactive to light bilaterally. CN VII: Full and symmetric facial movement. CN IX, X: Palate elevates symmetrically CN XI: Shoulder shrug strength is normal. CN XII: Tongue midline without atrophy or fasciculations. MotorStrength is 5/5 throughout all four extremities. Moderate postural tremor. SensoryTemperature abnormality: Decreased distally. Vibration abnormality: Decreased distally. ReflexesDeep tendon reflexes: Suppressed but symmetric. Gait Ambulates with a rolling walker. Results for orders placed or performed in visit on 12/06/20 ALT Collection Time: 12/06/20 11:51 AM Result Value Ref Range ALT 14 6 - 29 unit/L AST Collection Time: 12/06/20 11:51 AM Result Value Ref Range AST 16 10 - 35 unit/L Complete Blood Count w/Diff and Platelet Collection Time: 12/06/20 11:51 AM Result Value Ref Range Basophils # 63 0 - 200 Cells/uL MCH 29.9 27.0 - 33.0 pg Hgb 16.2 (H) 11.7 - 15.5 g/dL Segs % 58.5 % MCHC 33.9 32.0 - 36.0 g/dL Lymphs % 29.2 % RDW 12.7 11.0 - 15.0 % Monocytes 8.6 % Plt Count 252 140 - 400 K/ul Eos % 2.7 % Basos % 1.0 % MPV 12.5 7.5 - 12.5 fL Hct 47.8 (H) 35.0 - 45.0 % WBC 6.3 3.8 - 10.8 K/ul Segs # 3686 1500 - 7800 Cells/uL RBC 5.42 (H) 3.80 - 5.10 M/CMM Lymphocytes # 1840 850 - 3900 Cells/uL Monocytes # 542 200 - 950 Cells/uL MCV 88.2 80.0 - 100.0 fL Eosinophils # 170 15 - 500 Cells/uL Primidone Level Collection Time: 12/06/20 11:51 AM Result Value Ref Range Phenobarb Lvl <5.0 (L) 15.0 - 40.0 mg/L Primidone Lvl 12.7 (H) 5.0 - 12.0 mg/L No MRI head results found for the past 12 months Assessment & PlanDiagnoses and all orders for this visit: Essential tremor Other orders - primidone (Mysoline) 250 MG tablet; Take 1 tablet by mouth in the morning and 1 tablet in the evening. Patient is on maximum tolerated dosing. Tremor is still moderate to severe. No medication changes planned. I am the continuing focal point for needed health care services and medicalcare services that are part of ongoing care related to this patient's single, serious condition or complex condition. [facility]2025-03-18 17:51:29Upcoming Encounters Health Maintenance Due Date Last Done Comments Bone Density Scan 1945 Medicare Annual Wellness (AWV) 1945 Diabetes: Foot Exam 1957 Diabetes: Retinopathy Screening 1957 DTaP/Tdap/Td Vaccines (1 - Tdap) 1966 Diabetes: Urine Protein Screening 1966 Zoster Vaccines (1 of 2) 1997 Respiratory Syncytial Virus (RSV) or >=60 (1 - 1-dose 75+ series) 2022 Diabetes: Hemoglobin A1C 01/15/2024 07/17/2023 Influenza Vaccine (#1) 2024 Lipid Panel 07/18/2024 07/18/2023 Pneumococcal Vaccine: 50+ Ye ars (2 of 2 - PCV) 07/05/2025 07/05/2024 HIB Vaccines Aged Out No longer eligi ble based on patient's age to complete this topic HPV Vaccines Aged Out No longer eligi ble based on patient's age to complete this topic Hepatitis A Vaccines Aged Out No long er eligible based on patient's age to complete this topic Hepatitis B Vaccines Aged Out No long er eligible based on patient's age to complete this topic IPV Vaccines Aged Out No longer eligi ble based on patient's age to complete this topic Meningococcal Vaccine Aged Out No sumeet alonso eligible based on patient's age to complete this topic Rotavirus Vaccines Aged Out No longer eligible based on patient's age to complete this topic [facility]ien[facility]l7957[facility]47-49 17:51:29 Diagnosis Essential tremor - Primary Lumbar radiculopathy Thoracic or lumbosacral neuritis or radiculitis, unspecified [facility]stTtnddyg7924-97-56 17:51:29 [facility]stAvzgnrr4444-33-12 12:35:01* [facility]Mgokjqf8569-90-15 12:35:01Upcoming Encounters Health Maintenance Due Date Last Done Comments Bone Density Scan 1945 Medicare Annual Wellness (AWV) 1945 Annual Physical 1948 Pneumococcal Vaccine: 65+ Ye ars (1 of 2 - PCV) 1953 Diabetes: Foot Exam 1957 Diabetes: Retinopathy Screening 1957 DTaP/Tdap/Td Vaccines (1 - Tdap) 1966 Diabetes: Urine Protein Screening 1966 Zoster Vaccines (1 of 2) 1997 Respiratory Syncytial Virus (RSV) or >=60 (1 - 1-dose 75+ series) 2022 Diabetes: Hemoglobin A1C 01/15/2024 07/17/2023 Influenza Vaccine (#1) 2024 Lipid Panel 07/18/2024 07/18/2023 HIB Vaccines Aged Out No longer eligi ble based on patient's age to complete this topic HPV Vaccines Aged Out No longer eligi ble based on patient's age to complete this topic Hepatitis A Vaccines Aged Out No long er eligible based on patient's age to complete this topic Hepatitis B Vaccines Aged Out No long er eligible based on patient's age to complete this topic IPV Vaccines Aged Out No longer eligi ble based on patient's age to complete this topic Meningococcal Vaccine Aged Out No sumeet alonso eligible based on patient's age to complete this topic Rotavirus Vaccines Aged Out No longer eligible based on patient's age to complete this topic [facility] HospitalIuxwaiy6563-82-89 12:35:01 [place] [address]-12-13 12:50:35 Diagnosis 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 Essential tremor Scoliosis, unspecified scoli osis type, unspecified spinal region [facility] HospitalVzwgsee1144-02-96 12:50:35 [place] [id number] 12:50:35* [facility] HospitalDddlonv5478-67-26 12:50:35Upcoming Encounters Health Maintenance Due Date Last Done Comments Bone Density Scan 1945 Medicare Annual Wellness (AWV) 1945 Annual Physical 1950 Pneumococcal Vaccine: 65+ Ye ars (1 of 2 - PCV) 1953 Diabetes: Foot Exam 1957 Diabetes: Retinopathy Screening 1957 DTaP/Tdap/Td Vaccines (1 - Tdap) 1966 Diabetes: Urine Protein Screening 1966 Zoster Vaccines (1 of 2) 1997 Respiratory Syncytial Virus (RSV) or >=60 (1 - 1-dose 75+ series) 2022 Diabetes: Hemoglobin A1C 01/15/2024 07/17/2023 Influenza Vaccine (#1) 2024 Lipid Panel 07/18/2024 07/18/2023 HIB Vaccines Aged Out No longer eligi ble based on patient's age to complete this topic HPV Vaccines Aged Out No longer eligi ble based on patient's age to complete this topic Hepatitis A Vaccines Aged Out No long er eligible based on patient's age to complete this topic Hepatitis B Vaccines Aged Out No long er eligible based on patient's age to complete this topic IPV Vaccines Aged Out No longer eligi ble based on patient's age to complete this topic Meningococcal Vaccine Aged Out No sumeet alonso eligible based on patient's age to complete this topic Rotavirus Vaccines Aged Out No longer eligible based on patient's age to complete this topic [facility] HospitalGuopcsc3209-09-32 12:50:38* [facility] HospitalFyplhey1544-71-55 12:50:38* Barry Da Silva MD - 02/08/2024 11:30 AM CDT History of Present Illness HPI Patient returns for reevaluation. Declined home health. Using a rolling walker at least. Tremor is about the same. Back still hurts, known scoliosis. No medication changes planned. Allergies as of 02/08/2024 (No Known Allergies) has a current medication list which includes the following prescription(s): amlodipine, celecoxib, clopidogrel, gabapentin, hydralazine, insulin glargine, insulin lispro, latanoprost, olmesartan, pantoprazole, primidone, restasis, simvastatin, clonazepam, naloxone, sertraline, and tramadol. Vitals:02/08/24 1138 BP: 151/53 Pulse: 64 Resp: 16 Temp: 36.5 ?C (97.7 ?F) SpO2: 95% Neurological Exam She is awake and alert. Cranial nerves are unremarkable. Strength full. Moderate postural and kinetic tremor. Reflexes trace. Ambulates with a rolling walker. Results for orders placed or performed in visit on 12/06/20 ALT Result Value Ref Range ALT 14 6 - 29 unit/L AST Result Value Ref Range AST 16 10 - 35 unit/L Complete Blood Count w/Diff and Platelet Result Value Ref Range Basophils # 63 0 - 200 Cells/uL MCH 29.9 27.0 - 33.0 pg Hgb 16.2 (H) 11.7 - 15.5 g/dL Segs 58.5 % MCHC 33.9 32.0 - 36.0 g/dL Lymphocytes 29.2 % RDW 12.7 11.0 - 15.0 % Monocytes 8.6 % Plt Count 252 140 - 400 K/ul Eosinophils 2.7 % Basophils 1.0 % MPV 12.5 7.5 - 12.5 fL Hct 47.8 (H) 35.0 - 45.0 % WBC 6.3 3.8 - 10.8 K/ul Neutrophils # 3686 1500 - 7800 Cells/uL RBC 5.42 (H) 3.80 - 5.10 M/CMM Lymphocytes # 1840 850 - 3900 Cells/uL Monocytes # 542 200 - 950 Cells/uL MCV 88.2 80.0 - 100.0 fL Eosinophils # 170 15 - 500 Cells/uL Primidone Level Result Value Ref Range Phenobarb Lvl <5.0 (L) 15.0 - 40.0 mg/L Primidone Lvl 12.7 (H) 5.0 - 12.0 mg/L No MRI head results found for the past 12 months Assessment/PlanDiagnoses and all orders for this visit: Essential tremor - clonazePAM (KlonoPIN) 1 MG tablet; Take 1 tablet by mouth every 12 hours if needed (tremor). Scoliosis, unspecified scoliosis type, unspecified spinal region - clonazePAM (KlonoPIN) 1 MG tablet; Take 1 tablet by mouth every 12 hours if needed (tremor). Other form of scoliosis of thoracolumbar spine - traMADol (Ultram) 50 MG tablet; Take 1 tablet by mouth 1 time each day. - clonazePAM (KlonoPIN) 1 MG tablet; Take 1 tablet by mouth every 12 hours if needed (tremor). Opioid use - traMADol (Ultram) 50 MG tablet; Take 1 tablet by mouth 1 time each day. - clonazePAM (KlonoPIN) 1 MG tablet; Take 1 tablet by mouth every 12 hours if needed (tremor). Other orders - sertraline (Zoloft) 100 MG tablet; Take 1 tablet by mouth 1 time each day. - naloxone (Narcan) 4 mg/0.1 mL nasal spray; Administer 1 spray into affected nostril(s) if needed for opioid reversal. May repeat every 2-3 minutes if needed, alternating nostrils, until medical assistance becomes available. Not really any further increases with regard to the tremor. Continue present medications [facility] HospitalJbehcmg2309-61-38 12:50:38Upcoming Encounters Health Maintenance Due Date Last Done Comments Medicare Annual Wellness (AWV) 1945 Pneumococcal Vaccine: 65+ Ye ars (1 of 2 - PCV) 1953 Diabetes: Foot Exam 1957 Diabetes: Retinopathy Screening 1957 DTaP/Tdap/Td Vaccines (1 - Tdap) 1966 Diabetes: Urine Protein Screening 1966 Zoster Vaccines (1 of 2) 1997 Respiratory Syncytial Virus (RSV) or >=60 (1 - 1-dose 60+ series) 2007 Diabetes: Hemoglobin A1C 10/15/2023 07/17/2023 Influenza Vaccine (#1) 2024 Lipid Panel 07/18/2024 07/18/2023 HIB Vaccines Aged Out No longer eligi ble based on patient's age to complete this topic HPV Vaccines Aged Out No longer eligi ble based on patient's age to complete this topic Hepatitis A Vaccines Aged Out No long er eligible based on patient's age to complete this topic Hepatitis B Vaccines Aged Out No long er eligible based on patient's age to complete this topic IPV Vaccines Aged Out No longer eligi ble based on patient's age to complete this topic Meningococcal Vaccine Aged Out No sumeet alonso eligible based on patient's age to complete this topic Rotavirus Vaccines Aged Out No longer eligible based on patient's age to complete this topic [facility] HospitalFiidngl5035-28-08 12:50:38 Diagnosis Essential tremor - Primary Scoliosis, unspecified scoli osis type, unspecified spinal region 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 [facility] HospitalLdaaeci7957-14-57 12:50:38 [facility] HospitalFbztxmv4118-72-90 23:56:40Upcoming Encounters Health Maintenance Due Date Last Done Comments Medicare Annual Wellness (AWV) 1945 Pneumococcal Vaccine: 65+ Ye ars (1 of 2 - PCV) 1953 Diabetes: Foot Exam 1957 Diabetes: Retinopathy Screening 1957 DTaP/Tdap/Td Vaccines (1 - Tdap) 1966 Diabetes: Urine Protein Screening 1966 Zoster Vaccines (1 of 2) 1997 Respiratory Syncytial Virus (RSV) or >=60 (1 - 1-dose 60+ series) 2007 Diabetes: Hemoglobin A1C 10/15/2023 07/17/2023 Influenza Vaccine (#1) 2024 Lipid Panel 07/18/2024 07/18/2023 HIB Vaccines Aged Out No longer eligi ble based on patient's age to complete this topic HPV Vaccines Aged Out No longer eligi ble based on patient's age to complete this topic Hepatitis A Vaccines Aged Out No long er eligible based on patient's age to complete this topic Hepatitis B Vaccines Aged Out No long er eligible based on patient's age to complete this topic IPV Vaccines Aged Out No longer eligi ble based on patient's age to complete this topic Meningococcal Vaccine Aged Out No sumeet alonso eligible based on patient's age to complete this topic Rotavirus Vaccines Aged Out No longer eligible based on patient's age to complete this topic [facility] HospitalHduuhgr6447-17-72 23:56:40 [place] 283684-07-24 10:10:51 Meenu called back stating patient is now willing to start PT. [facility]Mei[facility]Mebhhpa8071-26-16 09:49:47 Meenu's from [place] called to let you know patient refused physical therapy services. T [facility] HospitalZnyovkc4114-27-62 13:16:19* Home Health (Routine) - Pending Review Specialty Diagnoses / Procedures Referred By Contbraydon t Referred To Contact Home Health Services Diagnoses Scoliosis, unspecified scoliosis type, unspecified spinal region Sensory ataxia Barry Da Silva MD [address] [place] [id number] Referral ID Status Reason Start Date Expiration Date Visits Requested Visits Authorized [id number] Pending Review Co-Manageme nt of Problem 12/22/2023 02/20/[phone] [facility] HospitalGyexhie7331-85-71 13:16:19* [facility] HospitalLixxsbg2070-92-19 13:16:19* Barry Da Silva MD - 12/22/2023 11:30 AM CDT HPI Patient returns for reevaluation. Legs feel weak had a vascular study of LE. Symptoms suggest neuropathy very unsteady has fallen. Tremor is stable, back still hurts, has a rolling walker but is not using it. Getting home health but no physical therapy. Recommended she start using the rolling walker, will ask home health to start doing some physical therapy Allergies as of 12/22/2023 (No Known Allergies) has a current medication list which includes the following prescription(s): amlodipine, celecoxib, clonazepam, clopidogrel, gabapentin, hydralazine, insulin glargine, insulin lispro, latanoprost, olmesartan, pantoprazole, primidone, restasis, sertraline, simvastatin, and tramadol. Vitals:12/22/23 1145 BP: 143/58 Pulse: 71 Resp: 16 Temp: 36.2 ?C (97.2 ?F) SpO2: 99% Neurological Exam She is awake, alert, ocular motion full. Mild head tremor and extremity tremor. Strength full. Sensation decreased distally. Reflexes trace. Gait very unsteady and ataxic. Results for orders placed or performed in visit on 12/06/20 ALT Result Value Ref Range ALT 14 6 - 29 unit/L AST Result Value Ref Range AST 16 10 - 35 unit/L Complete Blood Count w/Diff and Platelet Result Value Ref Range Basophils # 63 0 - 200 Cells/uL MCH 29.9 27.0 - 33.0 pg Hgb 16.2 (H) 11.7 - 15.5 g/dL Segs 58.5 % MCHC 33.9 32.0 - 36.0 g/dL Lymphocytes 29.2 % RDW 12.7 11.0 - 15.0 % Monocytes 8.6 % Plt Count 252 140 - 400 K/ul Eosinophils 2.7 % Basophils 1.0 % MPV 12.5 7.5 - 12.5 fL Hct 47.8 (H) 35.0 - 45.0 % WBC 6.3 3.8 - 10.8 K/ul Neutrophils # 3686 1500 - 7800 Cells/uL RBC 5.42 (H) 3.80 - 5.10 M/CMM Lymphocytes # 1840 850 - 3900 Cells/uL Monocytes # 542 200 - 950 Cells/uL MCV 88.2 80.0 - 100.0 fL Eosinophils # 170 15 - 500 Cells/uL Primidone Level Result Value Ref Range Phenobarb Lvl <5.0 (L) 15.0 - 40.0 mg/L Primidone Lvl 12.7 (H) 5.0 - 12.0 mg/L No MRI head results found for the past 12 months Assessment & PlanEssential tremor Scoliosis, unspecified scoliosis type, unspecified spinal region Orders:Ambulatory referral to Home Health; Future Sensory ataxia Orders:Ambulatory referral to Home Health; Future No medication changes, home health PT evaluation, encouraged patient to use the rolling walker. [facility]2024-07-23 13:16:19Upcoming Encounters Scheduled Referrals Name Type Priority Associated Diagnoses Orde r Schedule Ambulatory referral to Home Health Outpatient Referral Routine Scoliosis, unspecified scoliosis type, unspecified spinal region Sensory ataxia Expected: 12/22/2023 (Approximate), Expires: 06/23/2024 Health Maintenance Due Date Last Done Comments Medicare Annual Wellness (AWV) 1945 Pneumococcal Vaccine: 65+ Ye ars (1 of 2 - PCV) 1953 Diabetes: Foot Exam 1957 Diabetes: Retinopathy Screening 1957 DTaP/Tdap/Td Vaccines (1 - Tdap) 1966 Diabetes: Urine Protein Screening 1966 Zoster Vaccines (1 of 2) 1997 Respiratory Syncytial Virus (RSV) or >=60 (1 - 1-dose 60+ series) 2007 Diabetes: Hemoglobin A1C 10/15/2023 07/17/2023 Influenza Vaccine (#1) 2024 Lipid Panel 07/18/2024 07/18/2023 HIB Vaccines Aged Out No longer eligi ble based on patient's age to complete this topic HPV Vaccines Aged Out No longer eligi ble based on patient's age to complete this topic Hepatitis A Vaccines Aged Out No long er eligible based on patient's age to complete this topic Hepatitis B Vaccines Aged Out No long er eligible based on patient's age to complete this topic IPV Vaccines Aged Out No longer eligi ble based on patient's age to complete this topic Meningococcal Vaccine Aged Out No sumeet alonso eligible based on patient's age to complete this topic Rotavirus Vaccines Aged Out No longer eligible based on patient's age to complete this topic [facility] HospitalDnqwbmf7823-19-70 13:16:19 Diagnosis Essential tremor - Primary Scoliosis, unspecified scoli osis type, unspecified spinal region Sensory ataxia Lack of coordination [facility] HospitalKqmtbtx5623-47-88 13:16:19 [facility] HospitalHjgcgmj0498-89-29 11:57:21* [facility] HospitalDgifitp5111-12-10 11:57:21Upcoming Encounters Health Maintenance Due Date Last Done Comments Diabetes: Hemoglobin A1C 1945 Lipid Panel 1945 Diabetes: Foot Exam 1957 Diabetes: Retinopathy Screening 1957 DTaP/Tdap/Td Vaccines (1 - Tdap) 1966 Diabetes: Urine Protein Screening 1966 Zoster Vaccines (1 of 2) 1997 Respiratory Syncytial Virus (RSV) or >=60 (1 - 1-dose 60+ series) 2007 Pneumococcal Vaccine: 65+ Ye ars (1 of 1 - PCV) 2012 HIB Vaccines Aged Out No longer eligi ble based on patient's age to complete this topic HPV Vaccines Aged Out No longer eligi ble based on patient's age to complete this topic Hepatitis A Vaccines Aged Out No long er eligible based on patient's age to complete this topic Hepatitis B Vaccines Aged Out No long er eligible based on patient's age to complete this topic IPV Vaccines Aged Out No longer eligi ble based on patient's age to complete this topic Meningococcal Vaccine Aged Out No sumeet alonso eligible based on patient's age to complete this topic Rotavirus Vaccines Aged Out No longer eligible based on patient's age to complete this topic [facility] HospitalQqwrylk8267-81-08 11:57:21 Diagnosis 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 Your procedure is at [facility] on 10/07/23. The address is [address] [place] [address], [facility], [id number]. [facility] nursing staff will call you the workday before your procedure to let you know what time to arrive.On the day of your procedure, please go inside that door and check in at the desk. Please note: You may not travel home alone and that includes in a taxi or by bus. We must speak to your Responsible Adult (who will be picking you up) the morning of your procedure, before the start of your procedure. This person must be an adult over the age of 18 years of age. Do not eat any solid food after midnight the night before surgery. You may have sips of clear liquids such as water, gatorade, and sprite up until two hours before your scheduled procedure. You may take your medications with a sip of water as directed by physician. Anticoagulants will be per physician guidance. Medication Note(s)/Instructions:Will continue Plavix per MD instruction. Instructed to take 1/2 usual insulin dose evening before surgery and hold insulin morning of surgery and to hold spironolactone and HCTZ morning of surgery. Pending screening, we may test for COVID. If a patient tests positive, their cases are cancelled and/or rescheduled. COVID SCREENING NOTE: Denies COVID symptoms, no testing required. Additional requests, questions, concerns:CB number and availability provided. Patient verbalized understanding of pre-op instructions and voiced no further questions at this time. [facility] - Rjysnh9306-27-07 09:34:44 TRANSITIONAL CARE MANAGEMENT ASSESSMENT 07/22/2023 Gabby López [id number] Gabby López is a 78 year old /White female was admitted on 07/17/[address] She was discharged on 07/21/23 with discharge disposition of HR- Routine Discharge. Admitting Physician: Karol Mobley Discharge Diagnosis: Acute hypoxic and hypercapnic respiratory failure requiring supplemental O2 Presumed COPD with acute exacerbation Acute parainfluenza 4 virus Linked Episodes Type: Episode: Status: Noted: Resolved: Last update: Updated by: TRANSITION OF CARE TCM Active 07/22/2023 07/22/2023 9:29 AM Eliz Salinas RN Comments: TCM Vhb-ixwz-ls-face outreach documentation: Discharge Assessment Chart Assessed: 07/22/23 TCM Outreach Completed: 07/22/23 Do you have a few minutes to speak with me about how you are doing at home?: Yes (Pt reports doing "Right now standing in the kitchen making my breakfast".) Discharge Instructions Do you understand your at-home instructions?: Yes (Denies any questions.) Medications Have you filled your prescriptions and do you have them in your home? : Yes (Reports having meds except albuterol and will be ready today.) Do you know how to take your medications?: Yes Can you provide me with the names or descriptions of any [id number] or supplements you are currently taking?: Yes (none) Supplies Did you receive applicable home medical supplies/equipment?: Yes (Reports having O2 at home and remaining DME will be delivered today) Do you understand how to use the medical supplies/equipment?: Yes Follow Up Appointment Has a follow up appointment been scheduled?: No (Pt will FU with ext. PCP. Pulm clinic will be reaching out to pt.) May I assist with scheduling this appointment?: Patient has outside PCP Do you have any questions about your follow up appointments?: No Are you able to get to your appointment? Who will be taking you?: Yes (neighbor) Home Health Assistance Has the home health nurse contacted you since you've been home?: N/A Survey - Recognition Is there anything you would like to share about your recent hospitalization, or anyone you would like to recognize?: No Do you have any suggestions for improvement?: No Do you have any other questions or concerns at this time?: No Salinas [facility] - Httybk5783-09-47 10:22:55 ..O2 Saturation at REST on Room Air = 90% O2 Saturation at REST on 3 LPM of Oxygen = 92% If room air Saturations on Room Air are 88% or below STOP as no further testing is needed EXERTION TEST O2 Saturation at Rest on Room Air = 90% O2 Saturation being Exerted on Room Air = 85% O2 Saturation being Exerted on 3 LPM of Oxygen = 91% Y MARKET CLERK Melissa Billingsley [facility]Ijhtea1675-47-96 06:21:47 Problem: Respiratory Function - Impaired Goal: Able to cough effectively Outcome: Progressing as expected Goal: Adequate oxygenation Outcome: Progressing as expected Goal: Adequate work of breathing Outcome: Progressing as expected Goal: Patent airway Outcome: Progressing as expected Waters [facility] HospitalMkscbg3489-79-34 19:37:38 A patient w/ normal wob. [facility]ickson [facility]Fptojh9874-77-81 19:30:11 Problem: Respiratory Function - Impaired Goal: Able to cough effectively Outcome: Progressing as expected Goal: Adequate oxygenation Outcome: Progressing as expected Goal: Patent airway Outcome: Progressing as expected Wick [facility] HospitalIzgznc0397-92-06 04:36:58 Problem: Respiratory Function - Impaired Goal: Able to cough effectively Outcome: Progressing as expected Goal: Adequate oxygenation Outcome: Progressing as expected Goal: Adequate work of breathing Outcome: Progressing as expected Goal: Patent airway Outcome: Progressing as expected [facility]2024-02-18 21:33:47 A patient w/ normal wob. [facility]2024-02-17 21:23:57 A patient w/ normal wob. [place] 12643-02-16 19:39:08 A patient w/ normal wob. [place] 12643-02-16 07:22:58 Report given to efrem in [place] and to ems crew. Pt escorted out via stretcher. Verbalizes understanding of need for transfer/admission. [facility] Jaky Fischer [place] 935484-02-16 06:00:00 Patient to [facility]. Assist x1. Tolerated fair. [facility] Melissa Sol [place] [id number] 03:54:29 SOB since yesterday. Pt complaining of SOB and feeling like glucose is low. Didn't check glucose before leaving. Pt's room air sats 78% on room air. Pt complaining of feeling weak [facility] Maude Jones [place] [address]-02-16 03:49:00 Associated Order(s): Critical Care Critical Care Performed by: Tahir Benavidez MD Authorized by: Tahir Benavidez MD Critical care provider statement: Critical care time (minutes): 60 Critical care time was exclusive of: Separately billable procedures and treating other patients and teaching time Critical care was necessary to treat or prevent imminent or life-threatening deterioration of the following conditions: Cardiac failure and respiratory failure Critical care was time spent personally by me on the following activities: Development of treatment plan with patient or surrogate, evaluation of patient's response to treatment, examination of patient, obtaining history from patient or surrogate, ordering and performing treatments and interventions, ordering and review of laboratory studies, ordering and review of radiographic studies, pulse oximetry, re-evaluation of patient's condition and review of old charts Care discussed with: admitting provider Comments: Due to a high probability of clinically significant, life threatening deterioration, the patient required my highest level of preparedness to intervene emergently and I personally spent this critical care time directly and personally managing the patient. This critical care time included obtaining a history; examining the patient; pulse oximetry; ordering and review of studies; arranging urgent treatment with development of a management plan; evaluation of patient's response to treatment; frequent reassessment; and, discussions with other providers. This critical care time was performed to assess and manage the high probability of imminent, life-threatening deterioration that could result in multi-organ failure. It was exclusive of separately billable procedures and treating other patients. [facility]2024-02-16 03:49:00 EMERGENCY DEPARTMENT ENCOUNTER [facility] Patient Name: Gabby López Date of : 1945 78 year old Exam [facility] Primary Care Physician: No primary care provider on file. Pre- Hospital Patient Escorted by: Family [5] Mode of Arrival: Personal means [1] EMS Treatment Prior to ED Arrival: [facility] treatment: None ED Events Date/Time Event User Comments 07/17/23358 Medical Screening Begins TAHIR BENAVIDEZ MD -- 07/17/23358 First Provider Evaluation TAHIR BENAVIDEZ MD -- Chief Complaint Chief Complaint Patient presents with Shortness of Breath ED Triage Notes Maude Jones RN 07/17/2023 03:57 SOB since yesterday. Pt complaining of SOB and feeling like glucose is low. Didn't check glucose before leaving. Pt's room air sats 78% on room air. Pt complaining of feeling weak HPI History provided by: Patient Shortness of Breath Severity: Moderate Onset quality: Gradual Duration: 1 day Timing: Constant Chronicity: Recurrent Relieved by: Nothing Worsened by: Nothing Associated symptoms: no abdominal pain, no chest pain, no cough, no fever, no headaches, no vomiting and no wheezing Past Medical History / Immunizations Past Medical History: Diagnosis Date Diabetes mellitus Hyperlipidemia Hypertension OCD (obsessive compulsive disorder) Scoliosis Tetanus received in last 5 years: Unknown Childhood immunizations: Up-to-date Past Surgical History Past Surgical History: Procedure Laterality Date TONSILLECTOMY age 16 TOTAL ABDOMINAL HYSTERECTOMY age 32 Allergies No Known Allergies Social History Tobacco Use Former; Types: Cigarettes Smokeless Tobacco: Never used smokeless tobacco. Tobacco Cessation: Counseling given: No Alcohol Use No. Drug Use No. Review of Systems Review of Systems Constitutional: Negative. Negative for chills, fatigue, fever and unexpected weight change. HENT: Negative. Eyes: Negative. Negative for discharge and itching. Respiratory: Positive for shortness of breath. Negative for cough, chest tightness and wheezing. Cardiovascular: Negative. Negative for chest pain and palpitations. Gastrointestinal: Negative. Negative for abdominal distention, abdominal pain, nausea and vomiting. Genitourinary: Negative. Negative for dysuria, urgency, frequency and flank pain. Musculoskeletal: Negative. Skin: Negative. Negative for color change, pallor and wound. Neurological: Negative. Negative for dizziness, syncope, light-headedness and headaches. Psychiatric/Behavioral: Positive for confusion. Negative for agitation and behavioral problems. All other systems reviewed and are negative. Endocrine: Endocrine negative Physical Exam ED Triage Vitals [07/17/23 0358] Weight 56.7 kg (125 lb) Actual or estimated Estimated by patient/family report Height 1.524 m (5') BP (!) 195/85 Pulse 86 Resp 22 Temp 36.2 ?C (97.1 ?F) Temp source Oral SpO2 98 % Measured on On oxygen Physical Exam Vitals reviewed. Constitutional: General: She is in acute distress. Appearance: She is well-developed. HENT: Head: Normocephalic and atraumatic. Nose: Nose normal. Eyes: Conjunctiva/sclera: Conjunctivae normal. Neck: Trachea: No tracheal deviation. Cardiovascular: Rate and Rhythm: Normal rate and regular rhythm. Heart sounds: Normal heart sounds. No murmur heard. No friction rub. Pulmonary: Effort: Pulmonary effort is normal. No respiratory distress. Breath sounds: Normal breath sounds. No stridor. No wheezing or rales. Abdominal: General: Bowel sounds are normal. There is no distension. Palpations: Abdomen is soft. Tenderness: There is no abdominal tenderness. There is no guarding or rebound. Musculoskeletal: General: Normal range of motion. Cervical back: Normal range of motion and neck supple. Skin: General: Skin is warm and dry. Neurological: Mental Status: She is alert and oriented to person, place, and time. Cranial Nerves: No cranial nerve deficit. Sensory: No sensory deficit. Psychiatric: Behavior: Behavior normal. Labs Lab Results CBC WITH DIFF - Abnormal Result Value Ref Range WBC 5.36 4.30 - 11.10 10*3/?L RBC 5.56 (*) 3.93 - 5.25 10*6/?L HGB 16.6 (*) 11.6 - 15.0 g/dL HCT 48.7 (*) 35.7 - 45.2 % MCV 87.6 80.6 - 95.5 fL MCH 29.9 25.9 - 32.8 pg MCHC 34.1 31.6 - 35.1 g/dL RDW-SD 40.6 39.0 - 49.9 fL RDW-CV 12.8 12.0 - 15.5 % PLT 207 166 - 358 10*3/?L MPV 10.5 9.5 - 12.9 fL NRBC/100 WBC 0.0 0.0 - 10.0 /100 WBCs NRBC x103<0.01 10*3/?L GRAN MAT (NEUT) % 50.9 % IMM GRAN % 0.40 % LYMPH % 23.9 % MONO % 20.3 % EOS % 3.4 % BASO % 1.1 % GRAN MAT x103(ANC) 2.73 1.88 - 7.09 10*3/uL IMM GRAN x103<0.03 0.00 - 0.06 10*3/uL LYMPH x1031.28 (*) 1.32 - 3.29 10*3/uL MONO x1031.09 (*) 0.33 - 0.92 10*3/uL EOS x1030.18 0.03 - 0.39 10*3/uL BASO x1030.06 0.01 - 0.07 10*3/uL COMP. METABOLIC PANEL (87258) - Abnormal NA 134 (*) 135 - 145 mmol/L K 3.3 (*) 3.5 - 5.0 mmol/L CL 97 (*) 98 - 108 mmol/L CO2 TOTAL 30 23 - 31 mmol/L AGAP 7 2 - 16 BUN 6 (*) 7 - 23 mg/dL GLUCOSE 126 (*) 70 - 110 mg/dL CREATININE 0.39 (*) 0.50 - 1.04 mg/dL TOTAL BILI 0.5 0.1 - 1.1 mg/dL CALCIUM 8.4 (*) 8.6 - 10.6 mg/dL T PROTEIN 8.0 6.3 - 8.2 g/dL ALBUMIN 4.5 3.5 - 5.0 g/dL ALK PHOS 154 (*) 34 - 122 U/L ALTv 22 5 - 35 U/L AST(SGOT) 38 13 - 40 U/L eGFR 103.3 mL/min/1.73m2 TROPONIN I - Abnormal TROPONIN I 0.220 (*) <=0.034 ng/mL N-TERMINAL PRO-BNP - Abnormal NT-proBNP 898 <=125 pg/mL URINALYSIS - Abnormal APPEARANCE Clear Clear COLOR Straw (*) Yellow PH 7.0 4.8 - 8.0 SP GRAVITY 1.006 1.003 - 1.030 GLU U QUAL Normal Normal BLOOD 1+ (*) Negative KETONES Negative Negative PROTEIN 100 mg/dL (*) Negative UROBILIN Normal Normal BILIRUBIN Negative Negative NITRITE Negative Negative LEUK ROBINSON Negative Negative RBC/HPF 7 (*) 0 - 3 HPF WBC/HPF <1 0 - 5 HPF BACTERIA Negative Negative MUCOUS Slight (*) Negative LPF URINE DRUG (IMMUNOASSAY) - COMPREHENSIVE DRUG SCREEN W/O REFLEX - Abnormal AMPHET Negative Negative SU U Presumptive Positive (*) Negative BENZO U Negative Negative Cocaine Metabolite Negative Negative METHADONE Negative Negative OPIATES Negative Negative PCP Negative Negative THC Negative Negative AC PANEL 20 + LACTIC ACID - Abnormal PH 7.36 7.35 - 7.45 PCO2 51 (*) 35 - 45 mmHg PO2 90 80 - 100 mmHg HCO3 28 (*) 22 - 26 mEq/L BE 1.6 -3.0 - 3.0 mEq/L THB 16.9 (*) 12.0 - 16.0 g/dL %O2HB 93.9 (*) 94.0 - 99.0 % %COHB ART 2.5 (*) 0.0 - 1.5 % %METHB ART 0.3 (*) 0.4 - 1.5 % VOL%O2 ART 22.3 15.0 - 23.0 % NA 135 135 - 145 mmol/L K+ 3.1 (*) 3.5 - 5.0 mmol/L AC CA IONZ 4.50 4.50 - 5.30 mg/dL GLUCOSE 124 (*) 70 - 110 mg/dL LACTIC ACID 0.76 0.50 - 2.20 mmol/L POCT GLUCOSE (AUTOMATED) - Abnormal POCT GLU 122 (*) 70 - 110 mg/dL ACTIVATED PARTIAL THRMPLAS YAMILETH - Abnormal APTT Patient 40 (*) 26 - 36 Seconds COVID-19 (ID NOW RAPID TESTING) - Normal SARS-CoV-2 Rapid ID NOW Not Detected Not Detected RAPID INFLUENZA A/B - Normal Rapid Influenza A Negative Negative Rapid Influenza B Negative Negative PROTHROMBIN TIME / INR - Normal PROTIME PATIENT 12.2 10.1 - 12.6 Seconds INR 1.0 ETHANOL ALCOHOL <10 mg/dL Imaging CT HEAD WO CONTRAST Preliminary Result CT HEAD WO CONTRAST HISTORY: Mental status change, unknown cause COMPARISON: None TECHNIQUE: Contiguous axial imaging to the base of skull was obtained with 2.5 mm slices without intravenous contrast. 5 mm axial, coronal, and sagittal reformats were obtained. FINDINGS: The ventricles and cerebral sulci are normal in caliber and configuration. No hydrocephalus, midline shift or pathological extra-axial fluid collection is present. The basal cisterns are unremarkable. There is no acute intracranial hemorrhage or significant mass effect. No parenchymal attenuation abnormality. Remote left basal ganglia lacunar infarct. The mcnulty-white matter differentiation is preserved. The mastoid air cells and paranasal air sinuses are clear. The calvarium and central skull base are unremarkable. Ectopic teeth projecting over the bilateral maxillary sinuses. IMPRESSION No acute intracranial abnormalities. Preliminary Report Dictated by Resident: Maye Clark XR CHEST 1 VW Final Result ORDERING PHYSICIAN: TAHIR BENAVIDEZ CLINICAL HISTORY: Shortness of breath TECHNIQUE: Frontal view of chest COMPARISON: None available. FINDINGS: The cardiac silhouette is mildly enlarged. Lungs are clear. Osseous structures are normal. IMPRESSION No radiographic cardiopulmonary disease. RL: 5252 Orders and Treatments Orders Placed This Encounter Procedures Critical Care XR CHEST [address] HEAD WO CONTRAST CBC WITH DIFF COMP. METABOLIC PANEL (29011) TROPONIN I N-TERMINAL PRO-BNP URINALYSIS URINE DRUG (IMMUNOASSAY) - COMPREHENSIVE DRUG SCREEN W/O REFLEX ETHANOL AC Panel 20 + Lactic Acid COVID-19 (ID NOW TESTING) RAPID INFLUENZA A/B POCT GLUCOSE (AUTOMATED) Lab Only COVID Interpretation Prothrombin Time / INR aPTT Respiratory Panel by PCR POCT GLUCOSE (AUTOMATED) D-Dimer Thyroid Stimulating Hormone Free T4 FREE T3 Vitamin B12, Level Vitamin D, 25-OH Folate Zinc, Blood BLOOD CULTURE SCREEN BLOOD CULTURE SCREEN Glycosylated Hemoglobin (A1C) Lipid Panel (26141)(Total Cholesterol, Triglycerides, HDL) Magnesium Cbc with Diff Basic Metabolic Panel (NA, K, CL, CO2, GLUCOSE, BUN, CREATININE, CA) Rapid Strep Screen For Group A POCT Glucose (Age >30 Days) Throat Culture O2 Per Protocol Orders Placed This Encounter Medications ipratropium-albuteroL (DUONEB) 0.5 mg-3 mg(2.5 mg base)/3 mL nebulizer solution 3 mL ipratropium-albuteroL (DUONEB) 0.5 mg-3 mg(2.5 mg base)/3 mL nebulizer solution 3 mL methylprednisolone sod succ (SOLU-MEDROL) injection 125 mg DISCONTD: metoprolol tartrate 100 mg tablet DISCONTD: atorvastatin 40 mg tablet DISCONTD: dapagliflozin propanediol (FARXIGA) 5 mg tablet DISCONTD: spironolactone 25 mg tablet DISCONTD: traZODone 50 mg tablet traMADoL 50 mg tablet HEPARIN SODIUM (PORCINE) 1,000 UNIT/ML BOLUS ACS ORDER SET DISCONTD: heparin (1,000 unit/mL, 10 mL vial) for Rebolusing DISCONTD: heparin 25,000 Units/250 mL (Premixed Bag) in 0.45 % NS DISCONTD: aspirin tablet 325 mg traMADoL (ULTRAM) tablet 50 mg enoxaparin (LOVENOX) injection 40 mg acetaminophen (TYLENOL) tablet 650 mg acetaminophen-codeine (TYLENOL #3) 300-30 mg tablet 1 tablet ondansetron (ZOFRAN (PF)) injection 4 mg sulfur hexafluoride microsphr (LUMASON) injection 5 mL insulin lispro, human, (HUMALOG U-100 INSULIN) 100 unit/mL injection olmesartan 40 mg tablet celecoxib 200 mg capsule Melatonin 5 mg tablet primidone 250 mg tablet timolol 0.5 % ophthalmic solution [id number] (REFRESH OPTIVE ADVANCED) 0.5-1-0.5 % Drop amLODIPine (NORVASC) tablet 5 mg clonazePAM (KLONOPIN) tablet 1 mg clopidogreL (PLAVIX) 75 mg tablet 75 mg gabapentin (NEURONTIN) tablet 600 mg hydrALAZINE (APRESOLINE) tablet 50 mg insulin lispro (human) (HumaLOG U-100) injection 5 Units insulin glargine (LANTUS U-100) injection 10 Units latanoprost (XALATAN) 0.005 % ophthalmic drops 1 Drop melatonin (MELATIN) tablet 6 mg losartan (COZAAR) tablet 100 mg pantoprazole (PROTONIX) EC tablet 40 mg primidone (MYSOLINE) tablet 250 mg cycloSPORINE (RESTASIS) 0.05 % drops 1 Drop SERTraline (ZOLOFT) tablet 100 mg atorvastatin (LIPITOR) tablet 20 mg timolol (TIMOPTIC) 0.5 % ophthalmic solution 1 Drop traMADoL (ULTRAM) tablet 50 mg dextrose 50 % in water (D50W) injection 25 mL glucagon (GLUCAGEN DIAGNOSTIC KIT) injection 1 mg Sliding Scale Insulin - Lispro (HumaLOG) Procedures EKG Time 0410 Normal sinus Rate 78 Q waves in anterior leads T wave inversions in inferior and lateral leads Mobile normal Abnormal EKG8 Notes & MDM Patient was evaluated for an emergency medical condition related to Shortness of Breath DDX COPD exacerbation Pneumonia Diagnosis/Impression as of 07/17/23 190 Acute respiratory failure with hypoxia NSTEMI (non-ST elevated myocardial infarction) Medical Decision Making Problems Addressed: Acute respiratory failure with hypoxia: acute illness or injury NSTEMI (non-ST elevated myocardial infarction): acute illness or injury Amount and/or Complexity of Data Reviewed Labs: ordered. Decision-making details documented in ED Course. Radiology: ordered and independent interpretation performed. Decision-making details documented in ED Course. ECG/medicine tests: ordered and independent interpretation performed. Decision-making details documented in ED Course. Risk Prescription drug management. Parenteral controlled substances. Decision regarding hospitalization. Limitations to patient care and compliance: none. Assessment/Summary: The patient is a 78-year-old female who presents for shortness of breath and altered mental status. The patient has history of COPD and she continues to smoke. O2 saturations at home were in the low 80s. Upon arrival her O2 sats on room air were in the low 80s. She was placed on nasal cannula at 3 to 4 L with improvement of her sats. She was given breathing treatments and steroids in the emergency department. Hematological chemistry studies are within acceptable limits however, she did have an elevated troponin of 0.22. The patient was given aspirin and placed on a heparin drip. Chest x-ray demonstrated chronic emphysematous changes only. CT of the head was negative for any acute process. The patient never had any chest pain. Because of the elevated troponin I believe the patient needs her troponin trend out and possible intervention. The patient was transferred to [place] for inpatient management possible cardiac intervention. She was transferred in stable and improved condition. History, physical exam findings, results of visit, differential diagnosis, medication regimens and plan of future care have been considered. Additional MDM may be found in the ED course. Differential diagnosis considered and final disposition made based on information gathered during evaluation and may not be completely ruled out or specifically listed. Vital signs were rechecked before final disposition. Diagnosis Final diagnoses: [J96.01] Acute respiratory failure with hypoxia (Primary) [I21.4] NSTEMI (non-ST elevated myocardial infarction) Disposition & Follow Up ED Disposition ED Disposition Transfer - [facility] ED to IP/Obs Condition -- Comment -- Current Discharge Medication List STOP taking these medications uftmllnzoylzwvs-cmttmro-kidc12 (REFRESH OPTIVE ADVANCED) 0.5-1-0.5 % Drop Comments: Reason for Stopping: celecoxib 200 mg capsule Comments: Reason for Stopping: insulin lispro, human, (HUMALOG U-100 INSULIN) 100 unit/mL injection Comments: Reason for Stopping: Melatonin 5 mg tablet Comments: Reason for Stopping: olmesartan 40 mg tablet Comments: Reason for Stopping: primidone 250 mg tablet Comments: Reason for Stopping: timolol 0.5 % ophthalmic solution Comments: Reason for Stopping: traMADoL 50 mg tablet Comments: Reason for Stopping: latanoprost 0.005 % ophthalmic drops Comments: Reason for Stopping: pantoprazole 40 mg EC tablet Comments: Reason for Stopping: SERTraline 100 mg tablet Comments: Reason for Stopping: amLODIPine 5 mg tablet Comments: Reason for Stopping: clopidogrel 75 mg tablet Comments: Reason for Stopping: hydralAZINE 25 mg tablet Comments: Reason for Stopping: LANTUS U-100 INSULIN 100 unit/mL solution Comments: Reason for Stopping: simvastatin 40 mg tablet Comments: Reason for Stopping: clonazePAM 1 mg tablet Comments: Reason for Stopping: gabapentin 600 mg tablet Comments: Reason for Stopping: RESTASIS 0.05 % ophthalmic drops Comments: Reason for Stopping: Tahir Benavidez Jr., MD Clinical Yard Inspector [facility] Emergency Department [employer] is used frequently and may produce errors. Promptly contact for obvious discrepancies. Tahir Benavidez MD 07/17/23 [id number] [facility]
--- NOTE | 2024-09-17 21:11 | RAD REPORT ---
EXAM: Chest Single View HISTORY: 79 years Female CHEST PAIN COMPARISON: 08/11/2023 FINDINGS: LUNGS/PLEURA: Ill-defined opacities in the upper lungs bilaterally. These are similar to prior. CARDIAC/MEDIASTINUM: The cardiac silhouette is within normal limits. UPPER ABDOMEN: No significant abnormality. BONES: No acute abnormality. LINES/TUBES/OTHER: N/A IMPRESSION: Upper lobe predominant nodularity similar to 08/11/2023 which may reflect a chronic or indolent infect ious or inflammatory process.
[2024-09-17] MEDS ORDERED: AZITHROMYCIN 500 MG INJ IVPB ONE (21:27)
[2024-09-17] MEDS ORDERED: ONDANSETRON 4 MG/2 ML VIAL ONE (21:27)
[2024-09-17] MEDS ORDERED: IPRATROPIUM BROM 0.5MG/2.5ML ONE (21:27)
[2024-09-17] MEDS ORDERED: CEFTRIAXONE 1000 MG/VIAL ONE (21:27)
[2024-09-17] MEDS ORDERED: ALBUTEROL 2.5 MG/3 ML NEB SOL ONE (21:27)
[2024-09-17] MEDS ORDERED: NA CHLORIDE 0.9% 50 ML ONE (21:28)
[2024-09-17] MEDS ORDERED: D5 0.9 NS 1,000 ML IV ONE (21:28)
[2024-09-17] MEDS ORDERED: NA CHLORIDE 0.9% 250 ML ONE (21:28)
[2024-09-17 21:30] LABS: Absolute Lymphocytes (CBC) 0.4 K/uL (0.7-4.9); Absolute Monocytes 0.4 K/uL (0.1-1.3); Absolute Neutrophil 3.6 K/uL (1.8-8.0); Basophils % 0.4 % (0-1.3); Hematocrit 31.3 % (36.0-45.0); Hemoglobin 10.2 g/dL (12.0-15.0); Lymphocytes % 8.7 % (15.3-44.8); MCH 21.6 pg (27.0-35.0); MCHC 32.7 g/dL (32.0-36.0); MCV 66.1 fL (80-100); MPV 7.6 fL (7.6-11.3); Monocytes % 9.9 % (3.3-12.3); Nucleated Red Blood Cells % 0.1 % (0-0); Platelets 327 thou/uL (152-406); RBC Red Blood Cell Count 4.73 M/uL (3.86-4.86); Red Cell Distribution Width 20.8 % (12.1-15.2)
[2024-09-17 21:34] LABS: Specific Gravity 1.013 (1.005-1.030); Sqamous Epithelial <5 /HPF (None Seen); Urine Bacteria None Seen /HPF (<20); Urine Bilirubin NEGATIVE (Negative); Urine Blood Negative (Negative); Urine Clarity Clear (Clear); Urine Color Light-Yellow (Yellow); Urine Crystals Unidentified Few /HPF (None Seen); Urine Culture Reflex Order NOT NEEDED; Urine Glucose NEGATIVE (Negative); Urine Ketones NEGATIVE (Negative); Urine Microscopic Reflex YN ORDER UMIC; Urine Nitrite NEGATIVE (Negative); Urine Protein TRACE (Negative); Urine RBC <5 /HPF (None Seen); Urine Urobilinogen Normal (Normal); Urine WBC <5 /HPF (<5); Urine pH 5.5 (5.0-7.0)
[2024-09-17 21:50] LABS: Albumin 2.7 g/dL (3.4-5.0); Albumin/Globulin Ratio 0.6 (1.1-1.8); Anion Gap 6.2 mEq/L (5.0-15.0); Bilirubin Total 0.3 mg/dL (0.2-1.0); C-Reactive Protein 17.6 mg/L (<3.00); Globulin 4.8 g/dL (2.3-3.5); Potassium 3.2 mEq/L (3.5-5.1); Protein, Total 7.5 g/dL (6.4-8.2); Thyroid Stimulating Hormone 1.22 uIU/mL (0.358-3.740); Troponin High Sensitivity 26.3 pg/mL (<58.9)
[2024-09-17 21:52] LABS: PT Prothrombin Time 12.1 SECONDS (10-13.0); PTT, Activated Partial Thromb 40.3 SECONDS (27.2-37.4); Protime INR 1.06
[2024-09-18 00:36] LABS: Platelet Estimate ADEQ; White Blood Cell Scan OK (OK)
[2024-09-18 00:37] LABS: Anisocytosis 1+; Blood Morphology Comment NOTED (NOT SEEN); Hypochromasia 1+; Microcytosis 1+
--- NOTE | 2024-09-18 00:49 | ER ---
Nurse's Notes [facility] Name: Gabby Lpóez Age: 79 yrs Sex: Female : 1945 Arrival Date: 09/17/2024 Time: 20:38 Bed 2 Private MD: Diagnosis: Hypo-osmolality and hyponatremia;Acute hyperglycemia secondary to insulin,, acute on chronic hyponatremia, right upper lung pneumonia. COPD exacerbation Presentation: 09/17 20:41 Chief complaint: EMS states: patient blood sugar low in the 20s on arrival, was given al5 oral glucose and D10 and came up to 130, but blood sugar starting to decrease again. Coronavirus screen: At this time, the client does not indicate any symptoms associated with coronavirus-19. Ebola Screen:. Initial Sepsis Screen: Does the patient meet any 2 criteria? No. Patient's initial sepsis screen is negative. Does the patient have a suspected source of infection? No. Patient's initial sepsis screen is negative. 20:41 Method Of Arrival: EMS: [facility] al5 20:41 Risk Assessment: Do you want to hurt yourself or someone else? Patient reports no al5 desire to harm self or others. Onset of symptoms was September 17, 2024. Care prior to arrival: Medication(s) given: D10 and oral glucose IV initiated. 20 GA, in the left hand, Glucose check: 100. 20:41 Acuity: BHAVIN 3 al5 Triage Assessment: 20:43 General: Appears in no apparent distress. comfortable, Behavior is calm, cooperative. al5 Pain: Denies pain. EENT: No signs and/or symptoms were reported regarding the EENT system. Neuro: Level of Consciousness is awake, alert, obeys commands, Oriented to person, place, time, situation. Cardiovascular: Capillary refill < 3 seconds Patient's skin is warm and dry. Respiratory: Airway is patent Respiratory effort is even, unlabored, Respiratory pattern is regular, symmetrical, on 4L NC chronic for COPD. GI: Abdomen is flat, non-distended, Reports low blood sugar. : No signs and/or symptoms were reported regarding the genitourinary system. Derm: Skin is intact, Skin is pink, warm \T\ dry. normal. Musculoskeletal: No signs and/or symptoms reported regarding the musculoskeletal system. Historical: - Allergies: 20:42 No Known Allergies; al5 - Home Meds: 20:42 amlodipine-olmesartan 10-40 mg Oral tablet daily [Active]; celecoxib 200 mg Oral al5 capsule 2 times per day [Active]; clonazepam 1 mg Oral tablet 2 times per day [Active]; clopidogrel 75 mg Oral tablet daily [Active]; duloxetine 30 mg Oral capsule daily [Active]; gabapentin 600 mg Oral tablet 3 times per day [Active]; Humalog U-100 Insulin 100 unit/mL Sub-Q cartridge 5 units 3 times per day [Active]; hydralazine 100 mg Oral tablet 3 times per day [Active]; Lantus U-100 Insulin 100 unit/mL Sub-Q solution 10 units 2 times per day [Active]; pantoprazole 40 mg Oral tablet daily [Active]; Primidone 200 mg Oral 2 times per day [Active]; sertraline 100 mg Oral tablet daily [Active]; - PMHx: 20:42 Anxiety; COPD; diabetes mellitus; Hypercholesterolemia; Hypertensive disorder; al5 Myocardial infarction; scoliosis; - PSHx: 20:42 hysterectomy; neck; Tonsillectomy; al5 - Immunization history:: Adult Immunizations up to date. - Infectious Disease History:: Denies. - Social history:: Smoking status: unknown. - Family history:: not pertinent. Screenin:46 [facility] ED Fall Risk Assessment (Adult) History of falling in the last 3 months, al5 including since admission No falls in past 3 months (0 pts) Confusion or Disorientation No (0 pts) Intoxicated or Sedated No (0 pts) Impaired Gait Yes (1 pt) Mobility Assist Device Used Yes (1 pt) Altered Elimination Yes (1 pt) Score/Fall Risk Level 3 or more points = High Risk Oriented to surroundings, Maintained a safe environment, Hourly rounding (assess needs \T\ fall precautionary measures) done. Abuse screen: Denies threats or abuse. Denies injuries from another. Nutritional screening: No deficits noted. On. Tuberculosis screening: No symptoms or risk factors identified. Assessment: 20:44 Reassessment: see triage assessment. al5 21:50 Reassessment: Patient appears in no apparent distress at this time. No changes from al5 previously documented assessment. Patient and/or family updated on plan of care and expected duration. Pain level reassessed. Patient is alert, oriented x 3, equal unlabored respirations, skin warm/dry/pink. 23:11 Reassessment: Patient appears in no apparent distress at this time. Patient and/or al5 family updated on plan of care and expected duration. Pain level reassessed. Patient is alert, oriented x 3, equal unlabored respirations, skin warm/dry/pink. Patient states feeling better. 09/18 00:27 Reassessment: Patient appears in no apparent distress at this time. No changes from al5 previously documented assessment. Patient and/or family updated on plan of care and expected duration. Pain level reassessed. Patient is alert, oriented x 3, equal unlabored respirations, skin warm/dry/pink. 02:33 Reassessment: Patient appears in no apparent distress at this time. No changes from al5 previously documented assessment. Patient and/or family updated on plan of care and expected duration. Pain level reassessed. Patient is alert, oriented x 3, equal unlabored respirations, skin warm/dry/pink. Vital Signs: 09/17 20:41 BP 106 / 49; Pulse 66; Resp 21; Temp 97; Pulse Ox 96% on 4 lpm NC; Weight 54.43 kg; al5 Height 4 ft. 9 in. ; 20:45 BP 108 / 50; Pulse 63; Resp 20; Pulse Ox 99% 1 lpm ; al5 21:00 BP 108 / 49; Pulse 63; Resp 18; Pulse Ox 100% on 1 lpm NC; al5 21:30 BP 119 / 47; Pulse 61; Resp 21; Pulse Ox 100% on 1 lpm NC; al5 22:00 BP 121 / 48; Pulse 55; Resp 21; Pulse Ox 100% on 1 lpm NC; al5 22:30 BP 123 / 49; Pulse 61; Resp 21 S; Pulse Ox 100% on 1 lpm NC; al5 23:00 BP 115 / 48; Pulse 57; Resp 19; Pulse Ox 100% 1 lpm ; al5 23:30 BP 119 / 66; Pulse 72; Resp 20; Pulse Ox 99% on 1 lpm NC; al5 09/18 00:00 BP 119 / 49; Pulse 69; Resp 17; Pulse Ox 97% 1 lpm ; al5 00:30 BP 127 / 44; Pulse 74; Resp 18; Pulse Ox 95% on 1 lpm NC; al5 01:00 BP 117 / 44; Pulse 72; Resp 19; Pulse Ox 96% on R/A; al5 01:30 BP 129 / 49; Pulse 66; Resp 18 S; Pulse Ox 99% on R/A; al5 02:00 BP 125 / 47; Pulse 61; Resp 18; Pulse Ox 98% on R/A; al5 09/17 20:41 Body Mass Index 25.97 (54.43 kg, 144.78 cm) al5 Calli Coma Score: 22:41 Eye Response: spontaneous(4). Motor Response: obeys commands(6). Verbal Response: sp4 oriented(5). Total: 15. ED Course: 09/17 20:42 Patient arrived in ED. vc1 20:43 Arm band placed on right wrist. Patient placed in the treatment room, in view of staff al5 members, on oxygen, on perl software engineer, on pulse oximetry. 20:44 Flory Mederos RN is Primary Nurse. al5 20:44 Jurgen Cutler MD is Attending Physician. al5 20:46 Patient has correct armband on for positive identification. Bed in low position. Call al5 light in reach. Side rails up X2. Provided Education on: plan of care. 20:47 No provider procedures requiring assistance completed. Maintain EMS IV. Dressing al5 intact. Site clean \T\ dry. Gauge \T\ site: 20G L hand. Flushed with 10 mL NS. 21:04 Chest Single View XRAY In Process Unspecified. EDMS 21:06 Triage completed. al5 09/18 00:44 Say Steinberg MD is Hospitalizing Provider. sp4 02:45 Patient admitted, IV remains in place. al5 Administered Medications: 09/17 21:40 Drug: Rocephin - Rocephin (cefTRIAXone) IVPB 1 grams IVPB once over 30 mins; (mix in 50 al5 mL NS) Route: IVPB; Infused Over: 30 mins; Site: right antecubital; 21:46 Follow up: Response: No adverse reaction; IV Status: Completed infusion; IV Intake: [id number] 21:46 Drug: Ipratropium Inhalation Aerosol 0.5 mg Inhalation once Route: Inhalation; al5 09/18 02:45 Follow up: Response: No adverse reaction al5 09/17 21:46 Drug: D5-NS IV 1000 ml IV at 125 ml/hr continuous Route: IV; Rate: 125 ml/hr; Site: al5 left hand; 09/18 02:45 Follow up: Response: No adverse reaction; IV Status: Infusion continued upon admission al5 09/17 21:46 Drug: Ondansetron IVP 4 mg IVP once; over 2 minutes Route: IVP; Site: left hand; al5 23:00 Follow up: Response: No adverse reaction; Nausea is decreased al5 21:46 Drug: Zithromax IVPB 500 mg IVPB once over 1 hrs; mix in 250 mL NS Route: IVPB; Infused al5 Over: 1 hrs; Site: right antecubital; 23:00 Follow up: Response: No adverse reaction; IV Status: Completed infusion; IV Intake: al5 250ml 21:47 Drug: Albuterol Inhalation 2.5 mg Inhalation once Route: Inhalation; al5 09/18 02:45 Follow up: Response: No adverse reaction al5 02:11 CANCELLED (Physician Discretion): lorazepam1 mg PO once sp4 02:43 Drug: rOPINIRole Extended Release 24 hour Tablet 2 mg PO once Route: PO; al5 02:43 Follow up: Response: No adverse reaction; Medication Administered at Departure al5 02:43 Drug: clonazePAM PO 1 mg PO once Route: PO; al5 02:43 Follow up: Response: No adverse reaction; Medication Administered at Departure al5 Medication: 09/17 20:45 VIS not applicable for this client. al5 Point of Care Testing: Blood Glucose: 23:00 Blood Glucose: 161 mg/dL; al5 Ranges: Intake: 21:46 IV: 50ml; Total: 50ml. al5 23:00 IV: 250ml; Total: 300ml. al5 Outcome: 09/18 00:49 Decision to Hospitalize by Provider. sp4 02:45 Admitted to Med/surg accompanied by tech, via wheelchair, room 403, with chart, al5 02:45 Condition: stable 02:45 Instructed on the need for admit, 03:10 Patient left the ED. al5 Signatures: Dispatcher [employer] EDMS Gabriela Laughlin RN RN vc1 Jurgen Cutler MD MD sp4 Flory Mederos RN RN al5 [place], Lluvia, RN RN br2 Corrections: (The following items were deleted from the chart) 09/17 21:00 General: Appears in no apparent distress. comfortable, Behavior is calm, al5 cooperative, al5 21:00 Pain: Denies pain. al5 al5 21:00 EENT: No signs and/or symptoms were reported regarding the EENT system. al5 al5 : 21:00 Neuro: Level of Consciousness is awake, alert, obeys commands, Oriented to al5 person, place, time, situation, al5 : 21:00 Cardiovascular: Capillary refill < 3 seconds Patient's skin is warm and dry. al5 al5 : 21:00 Respiratory: Airway is patent Respiratory effort is even, unlabored, Respiratory al5 pattern is regular, symmetrical, on 4L NC chronic for COPD al5 21:00 GI: Abdomen is flat, non-distended, Reports low blood sugar al5 al5 21:00 : No signs and/or symptoms were reported regarding the genitourinary system. al5al5 : 21:00 Derm: Skin is intact, Skin is pink, warm \T\ dry. normal, al5 al5 21:00 Musculoskeletal: No signs and/or symptoms reported regarding the musculoskeletal al5 system. al5 09/18 00:29 09/17 22:59 BP 123 / 49; Pulse 61bpm; Resp 21bpm; Spontaneous; Pulse Ox 100% 1 lpm al5 Nasal Cannula; br2 09/18 02:32 01:38 BP 129 / 49; Pulse 66bpm; Resp 18bpm; Spontaneous; Pulse Ox 99% RA; br2 al5
--- NOTE | 2024-09-18 00:49 | EDPHYS ---
Physician Documentation [facility] Name: Beatriz López Age: 79 yrs Sex: Female : 1945 Arrival Date: 09/17/2024 Time: 20:38 Bed 2 Private MD: ED Physician Jurgen Cutler HPI: 09/17 21:51 This 79 yrs old Female presents to ER via EMS with complaints of Low Blood sp4 Sugar. 09/18 02:14 Patient's home list of medications include ropinirole 2 mg p.o. twice daily, FeroSul, sp4 vitamin D2, Protonix 40 mg p.o. daily, furosemide 20 mg p.o. daily, primidone 250 mg p.o. twice daily, sodium chloride 1 g daily, sertraline 100 mg p.o. daily, Aldactone 25 mg p.o. twice daily, Plavix 75 mg p.o. daily, hydralazine 100 mg p.o. 3 times daily, amlodipine olmesartan 10-40 milligram p.o. daily, clonazepam 1 mg p.o. twice daily, duloxetine 30 mg p.o. daily. Historical: - Allergies: 09/17 20:42 No Known Allergies; al5 - Home Meds: 20:42 amlodipine-olmesartan 10-40 mg Oral tablet daily [Active]; celecoxib 200 mg Oral al5 capsule 2 times per day [Active]; clonazepam 1 mg Oral tablet 2 times per day [Active]; clopidogrel 75 mg Oral tablet daily [Active]; duloxetine 30 mg Oral capsule daily [Active]; gabapentin 600 mg Oral tablet 3 times per day [Active]; Humalog U-100 Insulin 100 unit/mL Sub-Q cartridge 5 units 3 times per day [Active]; hydralazine 100 mg Oral tablet 3 times per day [Active]; Lantus U-100 Insulin 100 unit/mL Sub-Q solution 10 units 2 times per day [Active]; pantoprazole 40 mg Oral tablet daily [Active]; Primidone 200 mg Oral 2 times per day [Active]; sertraline 100 mg Oral tablet daily [Active]; - PMHx: 20:42 Anxiety; COPD; diabetes mellitus; Hypercholesterolemia; Hypertensive disorder; al5 Myocardial infarction; scoliosis; - PSHx: 20:42 hysterectomy; neck; Tonsillectomy; al5 - Immunization history:: Adult Immunizations up to date. - Infectious Disease History:: Denies. - Social history:: Smoking status: unknown. - Family history:: not pertinent. ROS: 09/18 22:41 Constitutional: Negative for fever, chills, and weight loss, positive for shortness sp4 of breath, positive for crackles, positive low blood sugar, positive generalized weakness All other systems are negative, Exam: 22:41 Constitutional: Frail elderly female, dyspnea on arrival Head/Face: Normocephalic, sp4 atraumatic. Eyes: Pupils equal round and reactive to light, extra-ocular motions intact. Lids and lashes normal. Conjunctiva and sclera are not injected. Cornea within normal limits. Periorbital areas with no swelling, redness, or edema. ENT: Nares patent. No nasal discharge, no septal abnormalities noted. Tympanic membranes are normal and external auditory canals are clear. Oropharynx with no redness, swelling, or masses, exudates, or evidence of obstruction, uvula midline. Mucous membranes moist. Neck: Trachea midline, no thyromegaly or masses palpated, and no cervical lymphadenopathy. Supple, full range of motion without nuchal rigidity, or vertebral point tenderness. Chest/axilla: Normal chest wall appearance and motion. Nontender with no deformity. No lesions are appreciated. Cardiovascular: Regular rate and rhythm with a normal S1 and S2. No gallops, murmurs, or rubs. Normal PMI, no JVD. No pulse deficits. Respiratory: Lungs have equal breath sounds bilaterally, clear to auscultation and percussion. No rales, rhonchi or wheezes noted. No increased work of breathing, no retractions or nasal flaring. Abdomen/GI: Soft, with normal bowel sounds. No distension or tympany. No guarding or rebound. No evidence of tenderness throughout. Back: No spinal tenderness. No costovertebral tenderness. Skin: Warm, dry with normal turgor. Normal color with no rashes, no lesions, and no evidence of cellulitis. MS/ Extremity: Pulses equal, no cyanosis. Neurovascular intact. Full, normal range of motion. Neuro: Awake and alert, GCS 15, oriented to person, place, time, and situation. Cranial nerves II-XII grossly intact. Motor strength 5/5 in all extremities. Sensory grossly intact. Vital Signs: 09/17 20:41 BP 106 / 49; Pulse 66; Resp 21; Temp 97; Pulse Ox 96% on 4 lpm NC; Weight 54.43 kg; al5 Height 4 ft. 9 in. ; 20:45 BP 108 / 50; Pulse 63; Resp 20; Pulse Ox 99% 1 lpm ; al5 21:00 BP 108 / 49; Pulse 63; Resp 18; Pulse Ox 100% on 1 lpm NC; al5 21:30 BP 119 / 47; Pulse 61; Resp 21; Pulse Ox 100% on 1 lpm NC; al5 22:00 BP 121 / 48; Pulse 55; Resp 21; Pulse Ox 100% on 1 lpm NC; al5 22:30 BP 123 / 49; Pulse 61; Resp 21 S; Pulse Ox 100% on 1 lpm NC; al5 23:00 BP 115 / 48; Pulse 57; Resp 19; Pulse Ox 100% 1 lpm ; al5 23:30 BP 119 / 66; Pulse 72; Resp 20; Pulse Ox 99% on 1 lpm NC; al5 09/18 00:00 BP 119 / 49; Pulse 69; Resp 17; Pulse Ox 97% 1 lpm ; al5 00:30 BP 127 / 44; Pulse 74; Resp 18; Pulse Ox 95% on 1 lpm NC; al5 01:00 BP 117 / 44; Pulse 72; Resp 19; Pulse Ox 96% on R/A; al5 01:30 BP 129 / 49; Pulse 66; Resp 18 S; Pulse Ox 99% on R/A; al5 02:00 BP 125 / 47; Pulse 61; Resp 18; Pulse Ox 98% on R/A; al5 09/17 20:41 Body Mass Index 25.97 (54.43 kg, 144.78 cm) al5 Calli Coma Score: 22:41 Eye Response: spontaneous(4). Motor Response: obeys commands(6). Verbal Response: sp4 oriented(5). Total: 15. MDM: 09/17 21:52 ED course: [address] [address] sp4 RADIOLOGYSERVICES REPORT Name: VYBEATRIZ HAYDEE Acct Number: [id number] :1945 Age:79 Sex:F Ord Phys: Jugren Cutler MD Unit Number: [id number] [facility] Dr: NONE Status: REG ER ER Exam Date: 09/17/24 EXAM: Chest Single View HISTORY: 79 years Female CHEST PAIN COMPARISON: 08/11/2023 FINDINGS: LUNGS/PLEURA: Ill-defined opacities in the upper lungs bilaterally. These are similar to prior. CARDIAC/MEDIASTINUM: The cardiac silhouette is within normal limits. UPPER ABDOMEN: No significant abnormality. BONES: No acute abnormality. LINES/TUBES/OTHER: N/A IMPRESSION: Upper lobe predominant nodularity similar to 08/11/2023 which may reflect a chronic or indolent infectious or inflammatory process. . 23:21 Medical Screening Exam initiated 09/18 22:41 Differential diagnosis: Ascencion's syndrome, diabetes insipidus, DKA, hyperglycemia, sp4 hyperthyroidism, hypoglycemic episode. Data reviewed: vital signs, nurses notes, EMS record, lab test result(s), EKG, radiologic studies, plain films. Consideration of Admission/Observation Patient was admitted/placed on observation. Escalation of care including admission/observation considered. Management of patient was discussed with the following: Hospitalist: Idris ARREDONDO . 09/17 20:52 Order name: Blood Culture Adult (2) [facility] 09/17 20:52 Order name: CBC with Diff; Complete Time: 00:49 [facility] 09/17 20:52 Order name: CMP; Complete Time: 00:27 [facility] 09/17 20:52 Order name: Lactate w/ 2H reflex if indic.; Complete Time: 00:27 [facility] 09/17 20:52 Order name: Protime (+inr); Complete Time: 00:27 [facility] 09/17 20:52 Order name: Ptt, Activated; Complete Time: 00:27 [facility] 09/17 20:52 Order name: Urinalysis w/ reflexes; Complete Time: 00:27 [facility] 09/17 20:53 Order name: Troponin High Sensitivity; Complete Time: 00:27 [facility] 09/17 20:53 Order name: BNP; Complete Time: 00:27 [facility] 09/17 20:53 Order name: TSH; Complete Time: 00: [facility] 09/17 20:53 Order name: T4 Free; Complete Time: 00:27 sp4 09/17 20:53 Order name: CRP; Complete Time: 00:27 sp4 09/17 23:13 Order name: Glucose, Ancillary Testing; Complete Time: 00:27 EDMS 09/18 00:27 Order name: BMP; Complete Time: 02:11 sp4 09/18 00:37 Order name: CBC Smear Scan; Complete Time: 00:49 EDMS 09/18 01:54 Order name: Comprehensive Metabolic Panel EDMS 09/18 01:54 Order name: CBC with Automated Diff EDMS 09/18 01:54 Order name: CBC with Automated Diff EDMS 09/17 20:52 Order name: Chest Single View XRAY; Complete Time: 00:27 sp4 09/17 20:52 Order name: EKG; Complete Time: 20:53 sp4 09/17 20:52 Order name: Accucheck; Complete Time: 21:08 sp4 09/17 20:52 Order name: Cardiac monitoring; Complete Time: 21:08 sp4 09/17 20:52 Order name: Cath; Complete Time: 21:22 sp4 09/17 20:52 Order name: EKG - Nurse/Tech; Complete Time: 21:22 sp4 09/17 20:52 Order name: IV Saline Lock - Large Bore; Complete Time: 21:08 sp4 09/17 20:52 Order name: Labs collected and sent; Complete Time: 21:08 4 09/17 20:52 Order name: O2 Per Protocol; Complete Time: 21:08 4 09/17 20:52 Order name: O2 Sat Monitoring; Complete Time: 21:08 4 09/17 20:52 Order name: Vital Signs; Complete Time: 21:08 4 09/17 21:26 Order name: Misc. Order: RECOLLECT BLUE TOP; Complete Time: 21:46 rv1 Administered Medications: 09/17 21:40 Drug: Rocephin - Rocephin (cefTRIAXone) IVPB 1 grams IVPB once over 30 mins; (mix in 50 al5 mL NS) Route: IVPB; Infused Over: 30 mins; Site: right antecubital; 21:46 Follow up: Response: No adverse reaction; IV Status: Completed infusion; IV Intake: [id number] 21:46 Drug: Ipratropium Inhalation Aerosol 0.5 mg Inhalation once Route: Inhalation; al5 09/18 02:45 Follow up: Response: No adverse reaction al5 09/17 21:46 Drug: D5-NS IV 1000 ml IV at 125 ml/hr continuous Route: IV; Rate: 125 ml/hr; Site: al5 left hand; 09/18 02:45 Follow up: Response: No adverse reaction; IV Status: Infusion continued upon admission al5 09/17 21:46 Drug: Ondansetron IVP 4 mg IVP once; over 2 minutes Route: IVP; Site: left hand; al5 23:00 Follow up: Response: No adverse reaction; Nausea is decreased al5 21:46 Drug: Zithromax IVPB 500 mg IVPB once over 1 hrs; mix in 250 mL NS Route: IVPB; Infused al5 Over: 1 hrs; Site: right antecubital; 23:00 Follow up: Response: No adverse reaction; IV Status: Completed infusion; IV Intake: al5 250ml 21:47 Drug: Albuterol Inhalation 2.5 mg Inhalation once Route: Inhalation; al5 09/18 02:45 Follow up: Response: No adverse reaction al5 02:11 CANCELLED (Physician Discretion): lorazepam1 mg PO once sp4 02:43 Drug: rOPINIRole Extended Release 24 hour Tablet 2 mg PO once Route: PO; al5 02:43 Follow up: Response: No adverse reaction; Medication Administered at Departure al5 02:43 Drug: clonazePAM PO 1 mg PO once Route: PO; al5 02:43 Follow up: Response: No adverse reaction; Medication Administered at Departure al5 Point of Care Testing: Blood Glucose: 09/17 23:00 Blood Glucose: 161 mg/dL; al5 Ranges: Critical Glucose Levels:Adult <50 mg/dl or >400 mg/dl <40 mg/dl or >180 mg/dl Disposition Summary: 09/18/24 00:49 Hospitalization Ordered Notes: Hospitalization Status: Inpatient Admission sp4 Provider: Say Steinberg Location: Telemetry/[facility] (Inpatient) sp4 Condition: Serious sp4 Problem: new sp4 Symptoms: have improved sp4 Bed/Room Type: Standard sp4 Room Assignment: 403(09/18/24 02:01) rv1 Diagnosis - Hypo-osmolality and hyponatremia sp4 - Acute hyperglycemia secondary to insulin,, acute on chronic hyponatremia, sp4 right upper lung pneumonia. COPD exacerbation Forms: - Medication Reconciliation Form sp4 - SBAR form sp4 - Leadership Thank You Letter sp4 Addendum: 09/20/2024 21:56 Addendum: EKG 09/17/2024 EKG time 2125 normal sinus rhythm at the rate of 62, there is s p4 a left bundle branch block, no signs of acute VA based on Sgarbossa criteria, otherwise no ectopy, no signs of acute ischemic changes.. Signatures: Dispatcher [employer] EDMS Adria Kelsi rv1 Jurgen Cutler MD MD sp4 Flory Mederos RN RN al5 Corrections: (The following items were deleted from the chart) 09/17 20:54 20:54 Troponin High Sensitivity+C.LAB.BRZ ordered. EDMS EDMS 20:54 20:54 PROBNP+C.LAB.BRZ ordered. EDMS EDMS 20:54 20:54 THYROID STIMULAT HORMONE+C.LAB.BRZ ordered. EDMS EDMS 20:54 20:54 T4 FREE+C.LAB.BRZ ordered. EDMS EDMS 20:54 20:54 C-REACTIVE PROTEIN+C.LAB.BRZ ordered. EDMS EDMS 09/18 02:01 00:49 sp4 rv1 02:11 02:11 LORazepam PO 1 mg PO once ordered. sp4 sp4
[2024-09-18 01:01] LABS: Anion Gap 7.2 mEq/L (5.0-15.0); Potassium 3.2 mEq/L (3.5-5.1)
--- NOTE | 2024-09-18 01:53 | P.HP ---
Certification for Inpatient Patient admitted to: Inpatient With expected LOS: >2 Midnights Practitioner: I am a practitioner with admitting privileges, knowledge of patient current condition, hospital course, and medical plan of care. Services: Services provided to patient in accordance with Admission requirements found in Title 42 Section 412.3 of the Code of Federal Regulations Patient History Date of Service: 09/18/24 Reason for admission: hyponatremia History of Present Illness: 79-year-old female with past medical history of anxiety, COPD, diabetes, hyper tension, hyperlipidemia, CAD, scoliosis was brought to ER with hypoglycemia and hyponatremia. Complains of generalized weakness. No fever or chills. Denies any cough. No chest pain or shortness of breath. Patient has chronic hyponatremia. She was assessed in the ER and noted to be hyponatremic. And was admitted for further management. Allergies No Known Allergies Allergy (Unverified 09/15/12 15:18) Home medications list reviewed: Yes Home Medications: Amlodipine Bes/Olmesartan Med [Amlodipine-Olmesartan 10-40 mg] 1 each PO DAILY 02/10/24 Brimonidine Tartrate/Timolol [Brimonidine-Timolol 0.2%-0.5%] 1 drop OP BID 02/10/24 Carboxymethyl/Gly/Poly80/Pf [Refresh Optive Advanced Drops] 1 each OP TID 02/10/24 Celecoxib 200 mg PO BIDWM 02/10/24 Clopidogrel Bisulfate [Plavix*] 75 mg PO DAILY 02/10/24 Gabapentin [Neurontin] 600 mg PO TID 02/10/24 Hydralazine HCl 100 mg PO TID 02/10/24 Insulin Glargine,Hum.rec.anlog [Lantus] 10 unit SQ BID 02/10/24 Insulin Lispro [Humalog] 5 unit SQ TIDWM 02/10/24 Latanoprost Ophth [Xalatan 0.005%*] 1 drop EACH EYE BEDTIME 02/10/24 Pantoprazole [Protonix Tab*] 40 mg PO DAILY 02/10/24 Primidone 50 mg PO BID 02/10/24 Sertraline [Zoloft*] 100 mg PO DAILY 02/10/24 Tiotropium [place] [Spiriva] 2 spray IH DAILY 02/10/24 Tramadol HCl [Ultram] 50 mg PO DAILY 02/10/24 clonazePAM [Clonazepam] 1 mg PO BID 02/10/24 cycloSPORINE [Restasis] 1 drop EACH EYE DAILY 02/10/24 Duloxetine HCl 30 mg PO BID 07/04/24 Hydralazine [Apresoline*] 100 mg PO DAILY 07/04/24 Insulin Glargine,Hum.rec.anlog [Semglee] 07/04/24 cycloSPORINE [Restasis] 1 drop EACH EYE DAILY 07/04/24 Cyanocobalamin/Cobamamide [Vitamin B-12 5,000 Mcg Tab Sl] 1 each SL DAILY #30 ta b 07/05/24 Sodium Chloride Tab [Sodium Chloride*] 1 gm PO BIDWM #60 tab 07/05/24 Spironolactone [Aldactone*] 25 mg PO DAILY PRN #30 tab 07/05/24 - Past Medical/Surgical History Diabetic: Yes Past Medical History: Reviewed- Non-Contributory -: COPD -: Anxiety -: Diabetes Mellitus -: Hypercholesterol -: hypertension -: [place] -: Scolliosis, kyphosis Past Surgical History: Reviewed- Non-Contributory - Social History Smoking Status: Never smoker Alcohol use: No CD- Drugs: No Caffeine use: Yes Review of Systems 10-point ROS is otherwise unremarkable Physical Examination - Vital Signs Temperature: 97.2 F Blood Pressure: 106/49 Pulse: 66 Respirations: 18 Pulse Ox (%): 94 - Physical Exam General: Alert, Mild distress HEENT: Atraumatic, Normocephalic Neck: Supple Respiratory: Clear to auscultation bilaterally, Normal air movement Cardiovascular: Regular rate/rhythm, Normal S1 S2 Capillary refill: <2 Seconds Gastrointestinal: Soft and benign, W/out hepatosplenomegaly Musculoskeletal: No clubbing Integumentary: No rashes Neurological: Normal speech, Cranial nerves 3-12 intact, Normal reflexes 2+, Normal affect Lymphatics: No axilla or inguinal lymphadenopathy - Studies Laboratory Data (last 24 hrs) 09/18/24 09/17/24 09/17/24 00:33 21:36 21:00 WBC Hgb Hct Plt Count PT 12.1 INR 1.06 APTT 40.3 H Sodium 126 L 124 L Potassium 3.2 L 3.2 L BUN 14 18 Creatinine 0.70 0.76 Glucose 261 H 158 H Total Bilirubin 0.3 AST 53 H ALT 35 Alkaline Phosphatase 99 04/19/25 21:00 WBC 4.40 Hgb 10.2 L Hct 31.3 L Plt Count 327 PT INR APTT Sodium Potassium BUN Creatinine Glucose Total Bilirubin AST ALT Alkaline Phosphatase Assessment and Plan - Plan Hyponatremia Monitor telemetry Hold hydrochlorothiazide Possibly medication induced Monitor sodium levels Nephrology consulted Bilateral upper lobe opacities X-ray findings noted Will get a CT of the chest to rule out any mass/pneumonia Hypertension Antihypertensives titrated Continue home medications and titrate as needed Hyperlipidemia Continue statin Diabetes Insulin sliding scale Accu-Chek before every meal and at bedtime GI/DVT prophylaxis Advanced directive full code Discharge Plan: Home Plan to discharge in: 48 Hours - Advance Directives Does patient have a Living Will: No Does patient have a Durable POA for Healthcare: No - Code Status/Comfort Care Code Status: Full Code Time Spent Managing Pts Care (In Minutes): 48
[2024-09-18] MEDS: ROPINIROLE HCL 1 MG TAB ONE (02:18)
[2024-09-18] MEDS ORDERED: clonazePAM 1 MG TAB ONE (02:38)
[2024-09-18] MEDS ORDERED: GLUCAGON 1 MG/VIAL IM PRN (03:57)
[2024-09-18] MEDS ORDERED: D10W 125 ML IV PRN (03:57)
[2024-09-18] MEDS: ROPINIROLE HCL 1 MG TAB PO ONE (04:44)
[2024-09-18] MEDS: POTASSIUM CL SA 10 MEQ TAB PO ONE ×2 (04:45→20:49)
[2024-09-18 07:00] LABS: Albumin 2.1 g/dL (3.4-5.0); Albumin/Globulin Ratio 0.5 (1.1-1.8); Anion Gap 9.3 mEq/L (5.0-15.0); Bilirubin Total 0.2 mg/dL (0.2-1.0); Globulin 4.1 g/dL (2.3-3.5); Potassium 3.3 mEq/L (3.5-5.1); Protein, Total 6.2 g/dL (6.4-8.2)
[2024-09-18] MEDS: INSULIN REGULAR (HUMAN) 100 UNIT/ML SQ SCH (07:30)
[2024-09-18] MEDS: NA CHLORIDE 0.9% 1,000 ML IV SCH (08:38)
[2024-09-18] MEDS: ENOXAPARIN 40 MG/0.4 ML SQ SCH (08:38)
--- NOTE | 2024-09-18 11:25 | RAD REPORT ---
EXAM; Thorax W/ Con CLINICAL INDICATION: Chest pain. Abnormal chest x-ray TECHNIQUE: Routine CT scan of the chest with 100 cc Isovue-370 intravenous contrast. One or more of t he following dose reduction techniques were used: Automated exposure control, adjustment of the mA and/or kV according to patient size, and/or iterative reconstruction. Unless otherwise specified, inc idental findings do not require dedicated imaging follow-up. [id number]. COMPARISON: No prior exam. FINDINGS: Moderate COPD. 8 and 7 mm right upper lobe opacities. 4 mm right upper lobe nodule. Mild reticular nodular opacities within the lungs bilaterally. Mild additional chronic appearing interstitial lung opacities. No mediastinal or hilar lymphadenopathy. No pleural effusion. No pericardial effusion. IMPRESSION: Moderate COPD Right upper lobe opacities probably scarring or inflammation/infection. However as neoplasm can have this appearance it is recommended that the patient have a follow-up CT chest in 3 months Mild reticular nodular opacities within the lungs could be scarring or mild atypical infection. Mild additional chronic lung opacities.
[2024-09-18] MEDS: INSULIN LISPRO 100 UNIT/1 ML SQ SCH (13:20)
[2024-09-18] MEDS: SODIUM CHLORIDE 1 GM TAB PO SCH (15:09)
[2024-09-18] MEDS: HYDRALAZINE HCL 25 MG TABLET PO SCH (15:09)
[2024-09-18] MEDS: ALBUMIN HUMAN 25% 100 ML IV ONE (16:32)
[2024-09-18] MEDS: FUROSEMIDE 20 MG/ 2ML VIAL IV ONE (16:33)
[2024-09-18] MEDS: GUAIFENESIN/CODEINE 5ML UCUP PO PRN (16:34)
[2024-09-18] MEDS: UREA 15 GM POWDER PACKET PO SCH (17:36)
[2024-09-18] MEDS: METHYLPREDNISOLONE 125 MG INJ IV SCH (17:37)
[2024-09-18] MEDS: ROPINIROLE HCL 1 MG TAB PO SCH (20:48)
[2024-09-18] MEDS: PRIMIDONE 250 MG TAB PO SCH (20:49)
[2024-09-18] MEDS: INSULIN GLARGINE 100 UNIT/ML SQ SCH (21:00)
[2024-09-19] MEDS: BENZONATATE 100 MG CAP PO PRN (03:05)
[2024-09-19] MEDS: HYDRALAZINE HCL 20 MG/ML VIAL IV PRN (03:05)
[2024-09-19] MEDS: ACETAMINOPHEN 325 MG TABLET PO PRN (03:09)
[2024-09-19] MEDS: clonazePAM 1 MG TAB PO PRN (04:43)
[2024-09-19 06:13] LABS: Absolute Lymphocytes (CBC) 0.3 K/uL (0.7-4.9); Absolute Monocytes 0.1 K/uL (0.1-1.3); Absolute Neutrophil 0.7 K/uL (1.8-8.0); Basophils % 1.8 % (0-1.3); Hematocrit 32.2 % (36.0-45.0); Hemoglobin 10.6 g/dL (12.0-15.0); Lymphocytes % 27.3 % (15.3-44.8); MCH 21.7 pg (27.0-35.0); MCHC 32.8 g/dL (32.0-36.0); MCV 66.3 fL (80-100); MPV 7.2 fL (7.6-11.3); Monocytes % 9.5 % (3.3-12.3); Neutrophils % 61.4 % (41.7-73.7); Nucleated Red Blood Cells % 0.7 % (0-0); Platelets 298 thou/uL (152-406); RBC Red Blood Cell Count 4.87 M/uL (3.86-4.86); Red Cell Distribution Width 20.8 % (12.1-15.2)
[2024-09-19 06:49] LABS: Albumin 2.7 g/dL (3.4-5.0); Albumin/Globulin Ratio 0.6 (1.1-1.8); Anion Gap 6.7 mEq/L (5.0-15.0); Bilirubin Total 0.2 mg/dL (0.2-1.0); C-Reactive Protein 16.6 mg/L (<3.00); Globulin 4.7 g/dL (2.3-3.5); Magnesium 1.6 mg/dL (1.6-2.4); Potassium 3.7 mEq/L (3.5-5.1); Protein, Total 7.4 g/dL (6.4-8.2)
--- NOTE | 2024-09-19 07:15 | RAD REPORT ---
EXAM: Chest Single View HISTORY: 79 years Female pneumonia COMPARISON: 09/17/2024, yesterday chest CT FINDINGS: LUNGS/PLEURA: Mild scattered nodular opacities with background emphysema. No focal consolidation. CARDIAC/MEDIASTINUM: The cardiac silhouette is within normal limits. UPPER ABDOMEN: No significant abnormality. BONES: No acute abnormality. LINES/TUBES/OTHER: N/A IMPRESSION: Scattered mild bilateral reticulonodular opacities consistent with a mild pneumonia probably unchange d comparing across modalities with yesterday's CT but worse since 09/17/2024 chest radiograph.
[2024-09-19 08:26] LABS: Ferritin 44.8 ng/mL (8-252)
[2024-09-19] MEDS: SPIRONOLACTONE 25 MG TABLET PO SCH (08:35)
[2024-09-19] MEDS: predniSONE 20 MG TAB PO SCH (08:35)
[2024-09-19] MEDS: FUROSEMIDE 20 MG TABLET PO SCH (08:35)
[2024-09-19] MEDS: DULOXETINE 30 MG CAP PO SCH (08:35)
[2024-09-19] MEDS: PANTOPRAZOLE 40MG TABLET PO SCH (08:35)
[2024-09-19] MEDS: AMLODIPINE BES PO SCH (08:36)
[2024-09-19] MEDS: [UNRECOGNIZED DRUG - OTHER] PO SCH (08:36)
[2024-09-19] MEDS: SERTRALINE HCL 100 MG TAB PO SCH (08:36)
[2024-09-19] MEDS: OLMESARTAN MED PO SCH (08:36)
[2024-09-19 10:57] LABS: Atypical Lymphocytes 1 %; Band Neutrophils 3 % (0-1); Differential Total Cells Count 100; Lymphocytes 24 % (15-42); Monocytes 8 % (0-10); Platelet Estimate ADEQ; Segmented Neutrophils 64 % (40-80)
[2024-09-19 10:58] LABS: Anisocytosis 1+; Blood Morphology Comment NOTED (NOT SEEN); Platelets Clumped FEW SMALL
[2024-09-19 10:59] LABS: Hypochromasia 1+; Microcytosis 1+
[2024-09-19 12:13] LABS: Absolute Lymphocytes (CBC) 0.3 K/uL (0.7-4.9); Absolute Monocytes 0.2 K/uL (0.1-1.3); Absolute Neutrophil 0.8 K/uL (1.8-8.0); Basophils % 0.6 % (0-1.3); Hematocrit 32.6 % (36.0-45.0); Hemoglobin 10.8 g/dL (12.0-15.0); Lymphocytes % 24.7 % (15.3-44.8); MCH 21.9 pg (27.0-35.0); MCV 66.4 fL (80-100); MPV 7.6 fL (7.6-11.3); Monocytes % 14.9 % (3.3-12.3); Neutrophils % 59.8 % (41.7-73.7); Nucleated Red Blood Cells % 0.2 % (0-0); Platelets 305 thou/uL (152-406); RBC Red Blood Cell Count 4.91 M/uL (3.86-4.86); Red Cell Distribution Width 20.8 % (12.1-15.2)
[2024-09-19 12:24] LABS: Anion Gap 6.7 mEq/L (5.0-15.0); Potassium 3.7 mEq/L (3.5-5.1)
[2024-09-19] MEDS: SOD FERRIC GLUC COMPLX/SUCROSE 125 MG in NA CHLORIDE 0.9% 100 ML IV SCH (13:57)
--- NOTE | 2024-09-19 18:45 | CON ---
Date of Consultation: 09/19/2024 Chief Complaint: Low blood sugar. Reason For Consultation: Hyponatremia. History Of Present Illness: This is a 79-year-old woman with past medical history of chronic hyponat remia, on salt tablet, history of anxiety, COPD, diabetes mellitus and hypertension. Patient present ed to the ER complaining of low blood sugar, found to have hyponatremia, sodium 127. She has a histo ry of chronic hyponatremia and she take salt tablet 20 g b.i.d. In the past, was taking hydrochlorot hiazide. Reviewing her home medications, she is not taking hydrochlorothiazide, but takes SSRI. The patient was admitted for further evaluation. Past Medical History: Diabetes, chronic hyponatremia, COPD, hypertension. Past Surgical History: None documented. Social History: Denies tobacco or recreational drug abuse. Review of Systems: All systems are normal. Denied nausea, vomiting, diarrhea, constipation, chest pain, or palpitation. Physical Examination: Vital signs: Pulse rate 74, blood pressure 173/76. General: On physical examination, awake and alert. Looks frail. Neck: Supple. No elevated JVD. Heart: Regular rate and rhythm. Normal S1, S2. Chest: Clear to auscultation bilaterally. No rales or wheezes. Abdomen: Soft and nontender. Extremities: No edema. Laboratory Data: White count 11.4, hemoglobin of 10. Sodium 126, potassium 3.7, BUN 26, blood sugar at 220. Assessment And Plan: 1. Acute on chronic hyponatremia, possibly SIADH. Also, patient was taking hydrochlorothiazide in e past. We will need to verify her home medications with the patient again tomorrow. We will start fluid restriction. We will check TSH and . 2. Symptomatic hypoglycemia, resolved. Blood sugars elevated. Continue insulin. 3. Iron-deficiency anemia. We will start the patient on IV iron and monitor H and H. 4. Hypertension. Blood pressure is elevated. Started amlodipine and Lasix, hydralazine, and Aldacto ne. 5. Leukopenia. Continue to monitor. Consider other services. Thank you for allowing me to participate in patient's care. Total time spent 75 minutes including do cumentation, reviewing labs, and placing orders. FRANKLIN Voice ID: [id number] Report ID: [id number]
--- NOTE | 2024-09-20 03:42 | P.PN ---
Subjective Date of Service: 09/19/24 Patient is a 79-year-old female who came to the hospital with cough and congestion. Patient has a history of COPD and congestive heart failure. Patient was found to be hyponatremic. Patient's sodium level initially had improved; however, sodium dropped this morning. Patient's urine sodium is within normal limits. Patient may have SIADH as patient has a lung mass. Clinically, patient is feeling better and her upper respiratory symptoms have improved. Patient sodium level is correcting and our plan is to discharge home if her sodium continues to improve. Patient will need to follow-up with pulmonary for the lung nodule.Patient will also need to follow-up with nephrology to continue monitoring the hyponatremia. Patient may need tolvaptan therapy in the near future. Review of Systems 10-point ROS is otherwise unremarkable Physical Examination - Vital Signs Temperature: 97.9 F Blood Pressure: 176/78 Pulse: 89 Respirations: 17 Pulse Ox (%): 95 - Physical Exam General: Alert, In no apparent distress, Oriented x3 Respiratory: Other (Coarse breath sounds) Cardiovascular: Regular rate/rhythm, Normal S1 S2, No murmurs Gastrointestinal: Normal bowel sounds, Soft and benign, Non-distended, No tenderness, No rebound, No guarding Musculoskeletal: No clubbing, No swelling, No tenderness, Kyphosis Neurological: Sensation intact, Cranial nerves 3-12 intact - Studies Medications List Reviewed: Yes Assessment & Plan - Problems (Diagnosis) (1) Hyponatremia Current Visit: Yes Status: Acute (2) CAD (coronary artery disease) Current Visit: No Status: Chronic (3) COPD (chronic obstructive pulmonary disease) Current Visit: No Status: Acute (4) Hypertension Current Visit: No Status: Acute Qualifiers: Hypertension type: primary hypertension Qualified Code(s): I10 - Essential (primary) hypertension (5) Type II diabetes mellitus Current Visit: No Status: Acute - Plan Plan: 1. Hyponatremia; urine sodium is within normal limits. Possible SIADH related to lung nodule. Continue with slowly correcting sodium level and outpatient follow-up with nephrology. Nephrology will reassess and may start tolvaptan as an outpatient. 2. COPD; continue with nebs, steroids, and antibiotics. Outpatient pulmonary follow-up 3. CHF; heart failure with preserved ejection fraction; continue with gentle diuresing and monitor volume status. Outpatient audiology follow-up. 4. Kyphosis; could be causing some restrictive lung disease issues. Will continue with monitoring lung status and follow-up with pulmonary 5. Metabolic syndrome; Continue with strict blood pressure and blood sugar control and continue with statin therapy. 6. GI DVT prophylaxis Discharge Plan: Home Plan to discharge in: Greater than 2 days - Advance Directives Does patient have a Living Will: No Does patient have a Durable POA for Healthcare: No - Code Status/Comfort Care Code Status: Full Code Critical Care: No Time Spent Managing PTS Care (In Minutes): 35
[2024-09-20 05:23] VITALS: BMI 24.0
[2024-09-20 06:05] LABS: Absolute Lymphocytes (CBC) 0.6 K/uL (0.7-4.9); Absolute Monocytes 0.6 K/uL (0.1-1.3); Absolute Neutrophil 1.5 K/uL (1.8-8.0); Basophils % 0.9 % (0-1.3); Eosinophils % 0.3 % (0-4.4); Hematocrit 34.2 % (36.0-45.0); Hemoglobin 11.3 g/dL (12.0-15.0); Lymphocytes % 23.1 % (15.3-44.8); MCH 22.1 pg (27.0-35.0); MCHC 33.1 g/dL (32.0-36.0); MCV 66.8 fL (80-100); MPV 7.7 fL (7.6-11.3); Neutrophils % 54.7 % (41.7-73.7); Nucleated Red Blood Cells % 0.1 % (0-0); Platelets 323 thou/uL (152-406); RBC Red Blood Cell Count 5.12 M/uL (3.86-4.86); Red Cell Distribution Width 21.1 % (12.1-15.2)
[2024-09-20 06:29] LABS: Albumin/Globulin Ratio 0.6 (1.1-1.8); Anion Gap 10.1 mEq/L (5.0-15.0); Bilirubin Total 0.3 mg/dL (0.2-1.0); Potassium 3.1 mEq/L (3.5-5.1)
[2024-09-20 06:35] LABS: Thyroid Stimulating Hormone 1.86 uIU/mL (0.358-3.740)
[2024-09-20] MEDS: HYDRALAZINE HCL 25 MG TABLET PO SCH (09:51)
[2024-09-20] MEDS: POTASSIUM CL SA 10 MEQ TAB PO ONE (11:12)
[2024-09-20] MEDS: POLYETHYL GLY 3350 17 GM/DOSE PO PRN (11:12)
--- NOTE | 2024-09-20 15:42 | P.PN ---
Subjective Date of Service: 09/20/24 Chief Complaint: hyponatremia Subjective: No chest pain or shortness of breath. No nausea or vomiting. No abdominal pain. No obvious bleeding. Looks comfortable in the bed. Objective: General appearance: Alert and comfortable CVS: Normal S1 and S2 Lungs: Clear to auscultation bilaterally Abdomen: Soft, bowel sounds present, no tenderness Extremities: No lower extremity edema Physical Examination - Vital Signs Temperature: 98.1 F Blood Pressure: 152/56 Pulse: 87 Respirations: 16 Pulse Ox (%): 93 - Studies Medications List Reviewed: Yes Assessment And Plan - Plan 1. Hyponatremia Hold hydrochlorothiazide Possibly medication induced Monitor sodium levels Nephrology consulted 2. Lung nodules with ?pneumonia start ABX will need f/u CT chest in 3 months as per radiology 3. Hypertension Blood pressure high, antihypertensives titrated 4. Hyperlipidemia Continue statin 5. Diabetes Insulin sliding scale Accu-Chek before every meal and at bedtime 6. COPD; continue with nebs, steroids, and antibiotics, pulmonary follow-up 7. h/o CHF; heart failure with preserved ejection fraction; continue with gentle diuresing and monitor volume status. 8. Neutropenia: Monitor closely. 9. Chronic anemia: Monitor closely. 10. Hypokalemia: Replace and monitor Plan discussed with patient and case management team.
[2024-09-20] MEDS: CEFUROXIME 250 MG TAB PO SCH (16:32)
[2024-09-20] MEDS: DOXYCYCLINE 100 MG CAP PO SCH (16:32)
[2024-09-20] MEDS: ONDANSETRON 4 MG/2 ML VIAL IV PRN (17:25)
[2024-09-20] MEDS: POTASSIUM 25 MEQ EFFERV TAB PO ONE (20:12)
[2024-09-20] MEDS: SODIUM CHLORIDE 1 GM TAB PO SCH (20:13)
[2024-09-20] MEDS: ONDANSETRON 4 MG/2 ML VIAL IV ONE (20:37)
[2024-09-21 06:36] LABS: Absolute Lymphocytes (CBC) 0.5 K/uL (0.7-4.9); Absolute Monocytes 0.5 K/uL (0.1-1.3); Basophils % 0.6 % (0-1.3); Eosinophils % 0.5 % (0-4.4); Hematocrit 32.1 % (36.0-45.0); Hemoglobin 10.5 g/dL (12.0-15.0); Lymphocytes % 26.1 % (15.3-44.8); MCH 21.8 pg (27.0-35.0); MCHC 32.8 g/dL (32.0-36.0); MCV 66.5 fL (80-100); MPV 8.6 fL (7.6-11.3); Monocytes % 23.2 % (3.3-12.3); Neutrophils % 49.6 % (41.7-73.7); Nucleated Red Blood Cells % 0.2 % (0-0); Platelets 262 thou/uL (152-406); RBC Red Blood Cell Count 4.82 M/uL (3.86-4.86)
[2024-09-21 06:53] LABS: Anion Gap 8.7 mEq/L (5.0-15.0); Magnesium 1.6 mg/dL (1.6-2.4); Phosphorus 2.7 mg/dL (2.5-4.9); Potassium 3.7 mEq/L (3.5-5.1)
[2024-09-21] MEDS: POLYETHYL GLY 3350 17 GM/DOSE PO SCH (09:06)
[2024-09-21] MEDS: LACTULOSE 20 GM/30 ML UCUP PO SCH (09:06)
[2024-09-21 09:08] LABS: Atypical Lymphocytes 1 %; Blood Morphology Comment NOT SEEN (NOT SEEN); Differential Total Cells Count 100; Eosinophils 1 % (0-3); Lymphocytes 25 % (15-42); Monocytes 20 % (0-10); Platelet Estimate ADEQ; Segmented Neutrophils 53 % (40-80)
[2024-09-21] MEDS: POTASSIUM CL SA 10 MEQ TAB PO ONE ×2 (09:08→12:11)
[2024-09-21] MEDS: MAGNESIUM SULFATE 1 gm IVPB 1 GM/100 ML BAG IV ONE (09:10)
[2024-09-21] MEDS: Magnesium Sulfate 2gm IVPB 2 G/50 ML BAG IV ONE (12:11)
--- NOTE | 2024-09-21 12:50 | EKG ---
Test Date: 2024-09-17 Test Time: 21:25:20 Senior Electrical Estimator: MM MEASUREMENT RESULTS: Intervals: Rate: 62 DC: 160 QRSD: 148 QT: 548 QTc: 556 [place]: P: 82 DC: 160 QRS: 88 T: 87 INTERPRETIVE STATEMENTS: Normal sinus rhythm Left bundle branch block Abnormal ECG Compared to ECG 02/10/2024 19:05:17 Left bundle-branch block now present Myocardial infarct finding no longer present Electronically Signed On 09-21-24 12:41:25 CDT by Jose Enrique Green
--- NOTE | 2024-09-21 13:13 | PN ---
Date of Progress Note: 09/21/2024 Subjective: The patient was admitted with hyponatremia. Reviewing her home medications, there is no hydrochlorothiazide, but the patient on Celebrex. Patient on chronic pain. Physical Examination: Vital Signs: When I saw the patient, blood pressure 143/59, pulse of 83, afebrile. Chest: Clear to auscultation. Heart: S1, S2. Regular. Abdomen: Soft, nontender. Extremities: No edema. Neurologic: Alert. No focality. Laboratory Data: WBC 2, hemoglobin 10.5, sodium 126, potassium 3.7, bicarb 30, BUN 11, creatinine 0.6, calcium 8.4, phosphorus 2.7, magnesium 1.6. TSH 1.8. Urine sodium 59, urine osmolality 497. Assessment And Plan: 1. 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 I am going to go ahead and start the patient on salt tablet. Educate the patient for fluid restriction and we will monitor the patient, and also I will add Lasix 20 mg, and we will follow up. 2. Hypertension, controlled, optimal. Continue current treatment. 3. Hypomagnesemia, hypokalemia. We will supplement. Time spent examining the patient [id number] reviewing that the lab and the radiology placing order discussing the case with the patient discussing the case with the lift team technician including hospitalist and nursing staff more than 55 minutes IVELISSE Voice ID: [id number] Report ID: [id number] MTDD
--- NOTE | 2024-09-21 14:54 | P.PN ---
Subjective Date of Service: 09/21/24 Chief Complaint: hyponatremia Subjective: No chest pain or shortness of breath. No nausea or vomiting. No abdominal pain. No obvious bleeding. Looks comfortable in the bed. c/o consitpation Objective: General appearance: Alert and comfortable CVS: Normal S1 and S2 Lungs: Clear to auscultation bilaterally Abdomen: Soft, bowel sounds present, no tenderness Extremities: No lower extremity edema Physical Examination - Vital Signs Temperature: 98.3 F Blood Pressure: 137/59 Pulse: 94 Respirations: 18 Pulse Ox (%): 91 - Studies Medications List Reviewed: Yes Assessment And Plan - Plan 1. Hyponatremia Hold hydrochlorothiazide Possibly medication induced Monitor sodium levels Nephrology consulted cont salt tabs, sodium still low 2. Lung nodules with ?pneumonia start ABX will need f/u CT chest in 3 months as per radiology 3. Hypertension Blood pressure high, add coreg, cont other meds 4. Hyperlipidemia Continue statin 5. Diabetes Insulin sliding scale Accu-Chek before every meal and at bedtime 6. COPD; continue with nebs, steroids, and antibiotics, pulmonary follow-up 7. h/o CHF; heart failure with preserved ejection fraction; continue with gentle diuresing and monitor volume status. 8. Neutropenia: Monitor closely. 9. Chronic anemia: Monitor closely. 10. Hypokalemia: Replaced, monitor 11. Constipation: Increase bowel medications. Plan discussed with patient and case management team. DC when sodium better
[2024-09-21 15:52] VITALS: O2SAT 92
[2024-09-21] MEDS: carvediloL 3.125 MG TAB PO SCH (16:13)
[2024-09-21] MEDS: MELATONIN 5 MG TABLET PO PRN (21:11)
[2024-09-22 05:01] LABS: Absolute Lymphocytes (CBC) 0.7 K/uL (0.7-4.9); Absolute Monocytes 0.5 K/uL (0.1-1.3); Absolute Neutrophil 1.4 K/uL (1.8-8.0); Basophils % 0.5 % (0-1.3); Eosinophils % 0.3 % (0-4.4); Hematocrit 31.6 % (36.0-45.0); Hemoglobin 10.6 g/dL (12.0-15.0); Lymphocytes % 26.7 % (15.3-44.8); MCH 22.4 pg (27.0-35.0); MCHC 33.4 g/dL (32.0-36.0); MPV 8.1 fL (7.6-11.3); Monocytes % 19.3 % (3.3-12.3); Neutrophils % 53.2 % (41.7-73.7); Nucleated Red Blood Cells % 0.5 % (0-0); Platelets 283 thou/uL (152-406); RBC Red Blood Cell Count 4.72 M/uL (3.86-4.86); Red Cell Distribution Width 21.3 % (12.1-15.2)
[2024-09-22 05:14] LABS: Anion Gap 6.9 mEq/L (5.0-15.0); Potassium 3.9 mEq/L (3.5-5.1)
[2024-09-22] MEDS: UREA 15 GM POWDER PACKET PO SCH (09:00)
[2024-09-22] MEDS: carvediloL 6.25 MG TAB PO SCH (09:36)
[2024-09-22] MEDS: DOCUSATE NA/SENNA CONC 1 TAB PO ONE ×2 (10:35→13:52)
--- NOTE | 2024-09-22 12:49 | P.DS ---
Admission Date: 09/18/24 Discharge Date: 09/22/24 Disposition: DC HOME/HOME HEALTH CARE Discharge Condition: GOOD Reason for Admission: hyponatremia Hospital Course: Discharge diagnosis: 1. Hyponatremia Hold aldactone Monitor sodium levels Nephrology consulted cont salt tabs, sodium improving 2. Lung nodules with ?pneumonia started on ABX will need f/u CT chest in 3 months as per radiology 3. Hypertension Blood pressure high, added coreg, cont other meds, need f/u with PCP 4. Hyperlipidemia Continue statin 5. Diabetes cont insulin 6. COPD; continue with nebs, and antibiotics 7. h/o CHF; heart failure with preserved ejection fraction; continue home meds 8. Neutropenia: Monitor closely. 9. Chronic anemia: Monitor closely. 10. Hypokalemia: Replaced, monitor 11. Constipation: given bowel medications. Hospital course: 79-year-old patient admitted with hyponatremia, and possible pneumonia, she was given diuretics, nephrology was consulted, she was started on salt tablets, she was also started on antibiotics, overall she is feeling better in the last couple of days, her sodium is improving, I discussed with nephrology today, they cleared the patient to discharge, when I see the patient today she is doing well without any acute problems and feels ready to go home, otherwise no other acute issues going on so I am planning to discharge her to go home once she has BM, follow-up with PCP and nephrology. Subjective: No chest pain or shortness of breath. No nausea or vomiting. No abdominal pain. No obvious bleeding. Looks comfortable in the bed. c/o consitpation Objective: General appearance: Alert and comfortable CVS: Normal S1 and S2 Lungs: Clear to auscultation bilaterally Abdomen: Soft, bowel sounds present, no tenderness Extremities: No lower extremity edema Vital Signs/Physical Exam: Temp Pulse Resp BP Pulse Ox 98.5 F 83 18 169/83 H 91 09/22/24 08:00 09/22/24 09:36 09/22/24 08:00 09/22/24 09:36 09/22/24 08:00 Laboratory Data at Discharge: WBC 2.70 thou/uL (4.3-10.9) L 09/22/24 04:30 Hgb 10.6 g/dL (12.0-15.0) L 09/22/24 04:30 Hct 31.6 % (36.0-45.0) L 09/22/24 04:30 Plt Count 283 thou/uL (152-406) 09/22/24 04:30 PT 12.1 SECONDS (10-13.0) 09/17/24 21:36 INR 1.06 09/17/24 21:36 APTT 40.3 SECONDS (27.2-37.4) H 09/17/24 21:36 Sodium 128 mEq/L (136-145) L 09/22/24 04:30 Potassium 3.9 mEq/L (3.5-5.1) 09/22/24 04:30 BUN 13 mg/dL (7-18) 09/22/24 04:30 Creatinine 0.75 mg/dL (0.55-1.02) 09/22/24 04:30 Glucose 209 mg/dL (74-106) H 09/22/24 04:30 Uric Acid 2.0 mg/dL (2.6-6.0) L 09/20/24 05:43 Phosphorus 2.7 mg/dL (2.5-4.9) 09/21/24 06:17 Magnesium 1.6 mg/dL (1.6-2.4) 09/21/24 06:17 Total Bilirubin 0.3 mg/dL (0.2-1.0) 09/20/24 05:43 AST 22 U/L (15-37) 09/20/24 05:43 ALT 28 U/L (13-56) 09/20/24 05:43 Alkaline Phosphatase 100 U/L (45-117) 09/20/24 05:43 Imagings Data: EXAM; Thorax W/ Con CLINICAL INDICATION: Chest pain. Abnormal chest x-ray TECHNIQUE: Routine CT scan of the chest with 100 cc Isovue-370 intravenous contrast. One or more of the following dose reduction techniques were used: Automated exposure control, adjustment of the mA and/or kV according to patient size, and/or iterative reconstruction. Unless otherwise specified, incidental findings do not require dedicated imaging follow-up. [id number]. COMPARISON: No prior exam. FINDINGS: Moderate COPD. 8 and 7 mm right upper lobe opacities. 4 mm right upper lobe nodule. Mild reticular nodular opacities within the lungs bilaterally. Mild additional chronic appearing interstitial lung opacities. No mediastinal or hilar lymphadenopathy. No pleural effusion. No pericardial effusion. IMPRESSION: Moderate COPD Right upper lobe opacities probably scarring or inflammation/infection. However as neoplasm can have this appearance it is recommended that the patient have a follow-up CT chest in 3 months Mild reticular nodular opacities within the lungs could be scarring or mild atypical infection. Mild additional chronic lung opacities. Dictated By: Mahesh Hardwick MD 09/18/24 1118 Signed By: Mahesh Hardwick MD 09/18/24 1122 Home Medications: Amlodipine Bes/Olmesartan Med [Amlodipine-Olmesartan 10-40 mg] 1 tab PO DAILY 09/18/24 Clopidogrel Bisulfate [Clopidogrel] 75 mg PO DAILY 09/18/24 Duloxetine HCl 30 mg PO DAILY 09/18/24 Ergocalciferol (Vitamin D2) [Vitamin D2] 1.25 mg PO Q7D 09/18/24 Ferrous Sulfate 325 mg PO SEECOM 09/18/24 Furosemide 20 mg PO DAILY 09/18/24 Hydralazine [Apresoline*] 100 mg PO TID 09/18/24 Insulin Glargine,Hum.rec.anlog [Lantus] 8 units SQ 2100 09/18/24 Insulin Glargine,Hum.rec.anlog [Lantus] 10 units SQ 0900 09/18/24 Insulin Lispro [Humalog] 4 units SQ TIDWM 09/18/24 Pantoprazole [Protonix Tab*] 40 mg PO DAILY 09/18/24 Primidone 1 tab PO BID 09/18/24 Ropinirole HCl 3 mg PO BID 09/18/24 Sertraline HCl 100 mg PO DAILY 09/18/24 clonazePAM [Clonazepam] 1 mg PO BID PRN 09/18/24 Doxycycline Hyclate 100 mg PO BID #6 tab 09/22/24 Sodium Chloride Tab [Sodium Chloride*] 2 gm PO TID #90 tab 09/22/24 carvediloL [Coreg*] 6.25 mg PO BID #60 tab 09/22/24 cefuroxime axetiL [Cefuroxime] 500 mg PO BID #6 tab 09/22/24 New Medications: cefuroxime axetiL [Cefuroxime] 500 mg PO BID #6 tab carvediloL [Coreg*] 6.25 mg PO BID #60 tab Doxycycline Hyclate 100 mg PO BID #6 tab Sodium Chloride Tab [Sodium Chloride*] 2 gm PO TID #90 tab Diet: ADA Activity: Ad azra Followup: Zaria Kate MD [Primary Care Provider] - 1 Week (f/u in 5-7 days with CBC and CMP. Lung nodule will need f/u with PCP with Ct scan) Time spent managing pt's care (in minutes): 35
[2024-09-22 13:45] VITALS: BP 137/57; TEMP 98.3
--- NOTE | 2024-09-23 00:50 | PN ---
Date of Progress Note: 09/22/2024 Chief Complaint: Hyponatremia. Subjective: The patient was admitted with hyponatremia. She was found to have generalized weakness. She complains of chronic pain, and she was taking Celebrex at home. She denies hydrochlorothiazide . Today, she denies PND, orthopnea. Physical Examination: Lungs: Diminished breath sound at bases. Heart: S1, S2. Abdomen: Soft. Extremities: No edema. Impression And Plan: 1. Hyponatremia secondary to syndrome of inappropriate antidiuretic hormone in setting of chronic sunny n superimposed with nonsteroidal anti-inflammatory medication, EDDY-2 inhibitor. The patient needs to avoid Celebrex and she cannot take [id number] nonsteroidal anti-inflammatory medication. Avoi d HCTZ. The patient is taking sodium chloride tablet. Continue fluid restriction and sodium chlorid e tablets. Lasix was added to prevent fluid overload. 2. Hypertension, controlled. Blood pressure is stable. 3. Hypomagnesemia and hypokalemia. Continue supplementation according to lab results. SANDRA/RAD Voice ID: [id number] Report ID: [id number]
== END 2024-09-22 16:30 | disposition home health service (06) | DRG 643 ==
LOC: ER 20:38 → ERHOLD 09-18 01:49 → 4TH 09-18 02:02
PROVIDERS: ADMIT Family Medicine; ATTEND Hospitalist
DX: E22.2 Syndrome of inappropriate secretion of antidiuretic hormone (principal); J18.9 Pneumonia, unspecified organism; J44.0 Chronic obstructive pulmonary disease with (acute) lower respiratory infection; I50.32 Chronic diastolic (congestive) heart failure; I11.0 Hypertensive heart disease with heart failure; E88.810 Metabolic syndrome; E87.6 Hypokalemia; D70.9 Neutropenia, unspecified; D50.9 Iron deficiency anemia, unspecified; E83.42 Hypomagnesemia; E78.00 Pure hypercholesterolemia, unspecified; K59.00 Constipation, unspecified; E11.65 Type 2 diabetes mellitus with hyperglycemia; E11.649 Type 2 diabetes mellitus with hypoglycemia without coma; I25.10 Atherosclerotic heart disease of native coronary artery without angina pectoris; I25.2 Old myocardial infarction; R91.8 Other nonspecific abnormal finding of lung field; Z79.4 Long term (current) use of insulin; Z79.02 Long term (current) use of antithrombotics/antiplatelets; Z79.899 Other long term (current) drug therapy
CPT/HCPCS: 36415; 71045; 71260; 80048; 80053; 81001; 82607; 82728; 82947; 83540; 83605; 83735; 83880; 83930; 83935; 84100; 84132; 84145; 84300; 84439; 84443; 84466; 84484; 84550; 85025; 85610; 85730; 86140; 87040; 93005; 97116; 97161; 97530; 99285; J0360; J0696; J1650; J1815; J1938; J2405; J2916; J2919; J3475; J7030; J7042; J7050; J7512; J7613; J7644; P9047; Q9967